=== PATIENT | male | born 1980 | race Caucasian/White ===

== ENCOUNTER 2020-11-23 07:45 | Outpatient (REF) | payer BC, SELFPAY ==
[2020-11-23 08:46] LABS: Alanine Aminotransferase 23 U/L (0-40); Alkaline Phosphatase 42 U/L (39-117); Anion Gap 12 (12-20); Aspartate Amino Transferase 17 U/L (5-37); Bilirubin Total 1.7 mg/dL (0.0-1.0); Blood Urea Nitrogen 17 mg/dL (9-16); Carbon Dioxide 28 mmol/L (22-29); Chloride 104 mmol/L (96-108); Cholesterol 192 mg/dL; Estimated Glomerular Filt Rate > 60; Glucose Fasting 125 mg/dL (60-99); HDL Cholesterol 53 mg/dL; LDL Cholesterol Calculated 126 mg/dl; Potassium 4.9 mmol/L (3.3-5.1); Sodium 139 mmol/L (135-145); Total Protein 6.8 g/dL (6.5-8.0); Triglycerides 66 mg/dL
[2020-11-23 09:07] LABS: TSH reflex Free T4 2.64 uIU/mL (0.32-4.0)
== END 2020-11-23 07:46 | disposition home or self-care (01) ==
LOC: HO.LAB 07:45
PROVIDERS: PCP Nurse Practitioner Family; Visit Provider Nurse Practitioner Family
DX: Z00.00 Encounter for general adult medical examination without abnormal findings (principal)
CPT/HCPCS: 36415; 80053; 80061; 84443

== ENCOUNTER 2020-12-27 11:45 | Emergency (ER) | payer BC, SELFPAY ==
--- NOTE | ~2020-12-27 | XR_ITS ---
EXAMINATION: XR CHEST CLINICAL INFORMATION: Palpitations COMPARISON: Chest radiographs 10/24/2019, 07/15/2016 TECHNIQUE: Frontal view of the chest was obtained. FINDINGS: The lungs are clear. The vascularity is normal. The heart is normal in size. There is no airspace consolidation or effusion. The hilar and mediastinal contours are unremarkable. Cardiac loop recorder monitoring device again seen overlying the left chest. No acute bony abnormality. XR/XR chest 1V IMPRESSION: Unremarkable examination.
--- NOTE | 2020-12-27 11:52 | ECG_ITS ---
Test Reason : AFIB Blood Pressure : / mmHG Vent. Rate : 072 BPM Atrial Rate : 340 BPM P-R Int : 000 ms QRS Dur : 110 ms QT Int : 402 ms P-R-T Axes : 000 -23 150 degrees QTc Int : 440 ms Atrial fibrillation Voltage criteria for left ventricular hypertrophy Cannot rule out Septal infarct (cited on or before 01-JAN-2015) ST & Marked T wave abnormality, consider lateral ischemia Abnormal ECG When compared with ECG of 01-JAN-2015 13:00, Atrial fibrillation has replaced Sinus rhythm Questionable change in initial forces of Septal leads T wave inversion more evident in Lateral leads Referred By: Generic ED Physician Electronically Signed By:JANA CHARLES MD
[2020-12-27 12:23] VITALS: BP 141/76; PULSE 77; RESP 18; TEMP 37.1; O2SAT 97; BMI 30.7
[2020-12-27 12:56] LABS: Basophils Percent Auto 0.5 % (0-2); Eosinophils Absolute Auto 0.1 X10*3/uL (0.0-0.4); Eosinophils Percent Auto 1.6 % (0-4); Hemoglobin 15.3 g/dl (14.0-18.0); Imm Gran Abs Auto 0.03 X10*3/uL (0.00-0.03); Imm Gran Pct Auto 0.4 % (0.0-0.4); Lymphocytes Absolute Auto 1.4 X10*3/uL (1.2-4.9); Lymphocytes Percent Auto 18.5 % (20-40); MANUAL DIFF FLAG NO; Mean Corpuscular HGB Conc 33.3 g/dl (31.0-36.0); Mean Corpuscular Hemoglobin 28.1 pg (27.0-33.0); Mean Corpuscular Volume 84.4 fL (80-98); Mean Platelet Volume 9.6 fL (9.4-12.4); Monocytes Absolute Auto 0.6 X10*3/uL (0.1-1.2); Monocytes Percent Auto 7.8 % (2-11); Neutrophils Absolute Auto 5.3 X10*3/uL (2.0-8.3); Neutrophils Percent Auto 71.2 % (45-73); Platelet Count 256 X10*3/uL (160-400); Red Blood Count 5.45 X10*6/uL (4.60-5.80); Red Cell Distribution Width 12.4 % (11.0-16.0); White Blood Count 7.4 X10*3/uL (4.8-10.8)
--- NOTE | 2020-12-27 13:07 | ED_ITS ---
HPI - Arrhythmia/Palpitations General Chief Complaint: Arrhythmia/Palpitations Stated Complaint: AFIB Time Seen by Provider: 12/27/20 13:07 Source: patient and old records reviewed Mode of arrival: ambulatory Limitations: no limitations History of Present Illness HPI narrative: 40 yo male with hx of afib on metoprolol 75mg BID and xarelto as well as obstructive cardiomyopathy s/p ablation in 2017 started with palp itations yesterday at 330pm no new med changes, no caffeine, has not had symptoms since 2017, denies CP/SOB MD complaint: palpitations Onset (ago): day(s) (yesterday at 330pm) Duration: intermittent Severity: mild Context: occurred during rest and occurred during exertion Arrhythmia history: atrial fibrillation Associated symptoms: denies other symptoms Treatments prior to arrival: beta-monroe Related Data Home Medications Medication Instructions Recorded Confirmed metoprolol tartrate 50 mg tablet 75 mg PO BID 10/07/20 10/07/20 rivaroxaban 20 mg tablet 20 mg PO DAILY 10/07/20 10/07/20 Previous Rx's Medication Instructions Recorded dronedarone [Multaq] 400 mg PO BID #30 tab 12/27/20 Allergies Allergy/AdvReac Type Severity Reaction Status Date / Time midazolam [From VERSED] Allergy Unknown SNEEZING, Verified 12/27/20 12:23 GI upset penicillin V Allergy Unknown rash Verified 12/27/20 12:23 Review of Systems Review of Systems: Constitutional : No Fever, No Chills ENT/Mouth : No sore throat, No Rhinorrhea, No Swallowing Difficulty Eyes: No Eye Pain, No Swelling, No Redness Cardiovascular : No Chest Pain, no SOB, No Orthopnea, no Edema, pos palpitations Respiratory : No Cough, No Sputum, No Wheezing, no dyspnea Gastrointestinal : No Nausea, No Vomiting, No Diarrhea, No abdominal Pain, No Hematochezia, No Melena Genitourinary : No Dysuria, No Urinary Frequency, No Hematuria Musculoskeletal : No joint pain, No Myalgias Skin : No Skin Lesions, No rash Neuro : No Weakness, No Numbness, No Dizziness, No Headache Psych : No Anxiety/Panic, No Depression Heme/Lymph: No Bruising, No Lymphadenopathy Endocrine : No Polyuria, No Polydipsia All other systems reviewed and are negative PMFSH Past Medical History Attestation statement: The following information was validated with the patient. Medical History Hypertrophic obstructive cardiomyopathy Hypertrophic obstructive cardiomyopathy (HOCM) Paroxysmal A-fib Surgical History History of vasectomy Family History Family History Father Lyme disease Mother No problems noted. Maternal Grandmother CHF (congestive heart failure) CVD (cardiovascular disease) Diabetes mellitus Maternal Grandfather History of quadruple bypass Paternal Grandfather No problems noted. Paternal Grandmother Alzheimer's disease Pacemaker Brother No problems noted. Son No problems noted. Daughter No problems noted. Social History Social History Alcohol intake: never Smoking Status: Never smoker Advance Directives: Yes Advance Directives Information Provided: Yes Advance Directives on File: No Physical Exam Vital Signs: Vital Signs: Last Vital Signs Temp 98.2 F 12/27/20 14:00 Pulse 69 12/27/20 14:00 Resp 16 12/27/20 14:00 BP 105/72 12/27/20 14:00 Pulse Ox 99 12/27/20 14:00 Body Mass Index 30.7 Appearance: Alert. Oriented X3. No acute distress. Eyes: Pupils equal, round and reactive to light. ENT: Pharynx normal. Neck: Normal inspection. Neck supple. CVS: irregular heart rate and rhythm. Pulses normal. Respiratory: No respiratory distress. Breath sounds normal. Abdomen: Soft and nontender. Skin: Skin warm and dry. Normal skin color. Normal skin turgor. Extremities: No lower extremity edema. No calf ttp Neuro: Oriented X 3. No motor deficit. No sensory deficit. Course Course Course Narrative: able to obtain outside records for EKG - unchanged will cancel troponin - no CP/SOB discussed with Cardiology given asymptomatic wants to see outpatient can start on multaq 400mg BID patient called and updated with plan for new medications and to see Dr. Camacho on wednesday MDM - Arrhythmia/Palpitations MDM Narrative Medical decision making narrative: 40 yo male with hx of afib on metoprolol 75mg BID and xarelto as well as obstructive cardiomyopathy s/p ablation in 2017 sta rted with palpitations yesterday at 330pm no new med changes, no caffeine, has not had symptoms since 2017, denies CP/SOB - overall asymptomatic at this time will need labs, EKG, troponin, lytes Lab Data Result diagrams: 12/27/20 12:45 12/27/20 12:45 Labs: Lab Results 12/27/20 12/27/20 12/27/20 Range/Units 12:45 12:45 12:45 WBC 7.4 (4.8-10.8) X10*3/uL RBC 5.45 (4.60-5.80) X10*6/uL Hgb 15.3 (14.0-18.0) g/dl Hct 46.0 (42-52) % MCV 84.4 (80-98) fL MCH 28.1 (27.0-33.0) pg MCHC 33.3 (31.0-36.0) g/dl RDW 12.4 (11.0-16.0) % Plt Count 256 (160-400) X10*3/uL MPV 9.6 (9.4-12.4) fL Immature Gran % (Auto) 0.4 (0.0-0.4) % Neut % (Auto) 71.2 (45-73) % Lymph % (Auto) 18.5 L (20-40) % Jackson % (Auto) 7.8 (2-11) % Eos % (Auto) 1.6 (0-4) % Baso % (Auto) 0.5 (0-2) % Lymph # (Auto) 1.4 (1.2-4.9) X10*3/uL Jackson # (Auto) 0.6 (0.1-1.2) X10*3/uL Eos # (Auto) 0.1 (0.0-0.4) X10*3/uL Baso # (Auto) 0.0 (0.0-0.2) X10*3/uL Abs Immat Gran (auto) 0.03 (0.00-0.03) X10*3/uL Absolute Neuts (auto) 5.3 (2.0-8.3) X10*3/uL Absolute Nucleated RBC 0.000 (0.0-0.012) X10*3/uL Nucleated RBC % (auto) 0.0 (0.0-0.2) /100WBC Hold Blue Top SEE NOTE Sodium 138 (135-145) mmol/L Potassium 5.4 H (3.3-5.1) mmol/L Chloride 104 (96-108) mmol/L Carbon Dioxide 29 (22-29) mmol/L Anion Gap 10 L (12-20) BUN 12 (9-16) mg/dL Creatinine 1.14 (0.5-1.4) mg/dL Estim Creat Clear Calc 89.8 Estimated GFR > 60 Random Glucose 113 (60-115) mg/dL Calcium 9.7 D (8.4-10.2) mg/dL Magnesium 2.2 (1.6-2.6) mg/dL Troponin I High Sens (<3.5-35.0) ng/L TSH 2.73 (0.32-4.0) uIU/mL 12/27/20 Range/Units 12:45 WBC (4.8-10.8) X10*3/uL RBC (4.60-5.80) X10*6/uL Hgb (14.0-18.0) g/dl Hct (42-52) % MCV (80-98) fL MCH (27.0-33.0) pg MCHC (31.0-36.0) g/dl RDW (11.0-16.0) % Plt Count (160-400) X10*3/uL MPV (9.4-12.4) fL Immature Gran % (Auto) (0.0-0.4) % Neut % (Auto) (45-73) % Lymph % (Auto) (20-40) % Jackson % (Auto) (2-11) % Eos % (Auto) (0-4) % Baso % (Auto) (0-2) % Lymph # (Auto) (1.2-4.9) X10*3/uL Jackson # (Auto) (0.1-1.2) X10*3/uL Eos # (Auto) (0.0-0.4) X10*3/uL Baso # (Auto) (0.0-0.2) X10*3/uL Abs Immat Gran (auto) (0.00-0.03) X10*3/uL Absolute Neuts (auto) (2.0-8.3) X10*3/uL Absolute Nucleated RBC (0.0-0.012) X10*3/uL Nucleated RBC % (auto) (0.0-0.2) /100WBC Hold Blue Top Sodium (135-145) mmol/L Potassium (3.3-5.1) mmol/L Chloride (96-108) mmol/L Carbon Dioxide (22-29) mmol/L Anion Gap (12-20) BUN (9-16) mg/dL Creatinine (0.5-1.4) mg/dL Estim Creat Clear Calc Estimated GFR Random Glucose (60-115) mg/dL Calcium (8.4-10.2) mg/dL Magnesium (1.6-2.6) mg/dL Troponin I High Sens 8.4 (<3.5-35.0) ng/L TSH (0.32-4.0) uIU/mL ECG Data Attestation: I personally reviewed and interpreted this ECG as follows: ECG interpretation date: 12/27/20 ECG interpretation time: 13:20 Prior ECG tracings: available for review Interpretation: Rate: 70s Rhythm: afib [place]: left, LVH Normal P waves. Normal AGUSTINA. Normal QRS complex. ST T wave : inverted I and aVL as well as V6 (more pronounced from prior) qTC: normal prior studies: more pronounced T wave inversions The study has been interpreted contemporaneously by me. . Discharge Plan Discharge Clinical Impression: Atrial fibrillation Qualifiers: Atrial fibrillation type: paroxysmal Qualified Code(s): I48.0 - Paroxysmal atrial fibrillation Patient Disposition: Home, Self-Care Instructions: A-fib (Atrial Fibrillation) (ED) Additional Instructions: return to ED for any worsening symptoms or concerns continue all medications Prescriptions: New Multaq 400 mg tablet 400 mg PO BID Qty: 30 RF: 0 No Action metoprolol tartrate 50 mg tablet 75 mg PO BID RF: 0 Xarelto 20 mg tablet 20 mg PO DAILY RF: 0 Referrals: Emerson Camacho MD [Physician] - 1 week Stand Alone Forms: Work/School Release Interventions: ED Discharge Assessment Last Done: 12/27/20 14:53 Discharge Date/Time: 12/27/20 14:54
[2020-12-27 13:23] LABS: Anion Gap 10 (12-20); Blood Urea Nitrogen 12 mg/dL (9-16); Calcium 9.7 mg/dL (8.4-10.2); Carbon Dioxide 29 mmol/L (22-29); Chloride 104 mmol/L (96-108); Creatinine Clr Calc Pharmacy 89.8; Estimated Glomerular Filt Rate > 60; Glucose Random 113 mg/dL (60-115); Potassium 5.4 mmol/L (3.3-5.1); Sodium 138 mmol/L (135-145)
[2020-12-27 13:30] LABS: Troponin-I High Sensitivity 8.4 ng/L (<3.5-35.0)
[2020-12-27 13:56] LABS: Magnesium 2.2 mg/dL (1.6-2.6)
[2020-12-27 14:00] VITALS: BP 105/72; PULSE 69; RESP 16; TEMP 36.8; O2SAT 99
[2020-12-27 14:17] LABS: Thyroid Stimulating Hormone 2.73 uIU/mL (0.32-4.0)
== END 2020-12-27 14:54 | disposition home or self-care (01) ==
PROVIDERS: Emergency Provider Emergency Medicine; PCP Nurse Practitioner Family
DX: I48.0 Paroxysmal atrial fibrillation (principal); Z79.01 Long term (current) use of anticoagulants
CPT/HCPCS: 36415; 71045; 80048; 83735; 84443; 84484; 85025; 93005; 99283; 99284

== ENCOUNTER 2021-01-20 21:30 | Emergency (ER) | payer BC, SELFPAY ==
--- NOTE | ~2021-01-20 | XR_ITS ---
EXAMINATION: XR CHEST CLINICAL INFORMATION: Elevated potassium. COMPARISON: None TECHNIQUE: Frontal view of the chest was obtained. FINDINGS: No significant abnormality is noted involving the heart, lungs, mediastinum, bony thorax or soft tissues. Acardiac recorder is seen in the left upper chest XR/XR chest 1V IMPRESSION: Unremarkable chest exam.
[2021-01-20 21:35] VITALS: BP 139/89; PULSE 80; RESP 16; TEMP 36.9; O2SAT 97; BMI 30.7
--- NOTE | 2021-01-20 21:48 | ECG_ITS ---
Test Reason : ABNORMAL LABS Blood Pressure : / mmHG Vent. Rate : 082 BPM Atrial Rate : 091 BPM P-R Int : 000 ms QRS Dur : 104 ms QT Int : 390 ms P-R-T Axes : 000 -21 142 degrees QTc Int : 455 ms Atrial fibrillation Voltage criteria for left ventricular hypertrophy ST & T wave abnormality, consider lateral ischemia Abnormal ECG When compared with ECG of 27-DEC-2020 11:57, No significant change was found Referred By: Kanchan Beasley Electronically Signed By:SOLA GONZALEZ
[2021-01-20 22:06] LABS: MANUAL DIFF FLAG NO
[2021-01-20 22:08] LABS: Basophils Absolute Auto 0.1 X10*3/uL (0.0-0.2); Eosinophils Absolute Auto 0.3 X10*3/uL (0.0-0.4); Eosinophils Percent Auto 3.4 % (0-4); Hematocrit 43.6 % (42-52); Hemoglobin 14.7 g/dl (14.0-18.0); Imm Gran Abs Auto 0.03 X10*3/uL (0.00-0.03); Imm Gran Pct Auto 0.3 % (0.0-0.4); Lymphocytes Absolute Auto 2.6 X10*3/uL (1.2-4.9); Lymphocytes Percent Auto 29.4 % (20-40); Mean Corpuscular HGB Conc 33.7 g/dl (31.0-36.0); Mean Corpuscular Hemoglobin 28.3 pg (27.0-33.0); Mean Platelet Volume 8.9 fL (9.4-12.4); Monocytes Absolute Auto 0.8 X10*3/uL (0.1-1.2); Monocytes Percent Auto 9.5 % (2-11); Neutrophils Percent Auto 56.4 % (45-73); Platelet Count 263 X10*3/uL (160-400); Red Blood Count 5.19 X10*6/uL (4.60-5.80); Red Cell Distribution Width 12.1 % (11.0-16.0); White Blood Count 8.8 X10*3/uL (4.8-10.8)
[2021-01-20 22:35] LABS: Troponin-I High Sensitivity 18.5 ng/L (<3.5-35.0)
[2021-01-20 22:40] LABS: Anion Gap 13 (12-20); Blood Urea Nitrogen 20 mg/dL (9-16); Calcium 9.3 mg/dL (8.4-10.2); Carbon Dioxide 26 mmol/L (22-29); Chloride 103 mmol/L (96-108); Creatinine Clr Calc Pharmacy 79.9; Estimated Glomerular Filt Rate > 60; Glucose Random 139 mg/dL (60-115); Potassium 4.8 mmol/L (3.3-5.1); Sodium 137 mmol/L (135-145)
--- NOTE | 2021-01-20 23:56 | ED_ITS ---
HPI - Arrhythmia/Palpitations General Chief Complaint: Arrhythmia/Palpitations Stated Complaint: abnoirmal labs Time Seen by Provider: 01/20/21 23:55 Source: patient Mode of arrival: ambulatory Limitations: no limitations History of Present Illness HPI narrative: Patient's history of atrial fibrillation on Xarelto and Multaq usually gets atrial fibrillation in last 1 only for few days with this times going on for last 3 weeks already seen chief of field operations today chief of field operations called him because lab called him for potassium of 5.8 on arrival patient had the labs done and for potassium was 4.8 here ,patient is not feeling much palpitations was working all day today without any shortness of breath or chest pain on ar rival patient's heart rate was in 80s AFib patient denies any dizziness syncope or chest pain complaint: irregular heart beat Related Data Home Medications Medication Instructions Recorded Confirmed metoprolol tartrate 50 mg tablet 75 mg PO BID 10/07/20 10/07/20 rivaroxaban 20 mg tablet 20 mg PO DAILY 10/07/20 10/07/20 Previous Rx's Medication Instructions Recorded dronedarone [Multaq] 400 mg PO BID #30 tab 12/27/20 Allergies Allergy/AdvReac Type Severity Reaction Status Date / Time midazolam [From VERSED] Allergy Unknown SNEEZING, Verified 12/27/20 12:23 GI upset penicillin V Allergy Unknown rash Verified 12/27/20 12:23 Review of Systems Review of Systems: Constitutional : No Weight loss, No Fever, No Chills ENT/Mouth : No sore throat, No Rhinorrhea Eyes: No Eye Pain, No Swelling Cardiovascular : No Chest Pain, + palpitations Respiratory : No Cough, No Sputum, no shortness of breath Gastrointestinal : no Nausea, No Vomiting, No Diarrhea, No abdominal Pain, no black stools Genitourinary : No Dysuria, No Urinary Frequency Musculoskeletal : No joint pain, No Myalgias, No Joint Swelling Skin : No Skin Lesions, No rash Neuro : No Weakness, No Numbness, No Dizziness, No Headache Psych : No Anxiety/Panic, No Depression Heme/Lymph: No Bruising, No Lymphadenopathy Endocrine : No Polyuria, No Polydipsia All other systems reviewed and are negative [facility] Past Medical History Medical History Hypertrophic obstructive cardiomyopathy Hypertrophic obstructive cardiomyopathy (HOCM) Paroxysmal A-fib Surgical History History of vasectomy Family History Family History Father Lyme disease Mother No problems noted. Maternal Grandmother CHF (congestive heart failure) CVD (cardiovascular disease) Diabetes mellitus Maternal Grandfather History of quadruple bypass Paternal Grandfather No problems noted. Paternal Grandmother Alzheimer's disease Pacemaker Brother No problems noted. Son No problems noted. Daughter No problems noted. Social History Social History Alcohol intake: never Smoking Status: Never smoker Advance Directives: No Advance Directives Information Provided: No Physical Exam Vital Signs: Vital Signs: Last Vital Signs Temp 98.4 F 01/20/21 21:35 Pulse 80 01/20/21 21:35 Resp 16 01/20/21 21:35 BP 139/89 01/20/21 21:35 Pulse Ox 97 01/20/21 21:35 Body Mass Index 30.7 Appearance: Alert. Oriented X3. No acute distress. Eyes: PERRLA, No Nystagmus ENT: Pharynx normal. Oral Mucosa moist Neck: Normal inspection. Neck supple. CVS: Irregularly irregular heart rate no murmur or gallop. Pulses normal. Respiratory: No respiratory distress. Equal air entry bilateral, no wheezing/rales/rhonchi Abdomen: Soft and nontender. Bowel sounds are present, no mass palpable, no CVA tenderness Skin: Skin warm and dry. Normal skin color. Normal skin turgor. Extremities: No lower extremity edema. No calf tenderness Neuro: Oriented X 3. No motor deficit. No sensory deficit.No cerebellar signs , cranial nerves II-XII intact MDM - Arrhythmia/Palpitations MDM Narrative Medical decision making narrative: Patient with stable labs potassium level is normal heart rate is in 80s with AFib already on medications for AFib has a follow-up plan with chief of field operations will discharge patient home Lab Data Attestation: I reviewed the patient's lab results. Result diagrams: 01/20/21 22:01 01/20/21 22:02 Labs: Lab Results 01/20/21 01/20/21 01/20/21 Range/Units 22:01 22:01 22:01 WBC 8.8 (4.8-10.8) X10*3/uL RBC 5.19 (4.60-5.80) X10*6/uL Hgb 14.7 (14.0-18.0) g/dl Hct 43.6 (42-52) % MCV 84.0 (80-98) fL MCH 28.3 (27.0-33.0) pg MCHC 33.7 (31.0-36.0) g/dl RDW 12.1 (11.0-16.0) % Plt Count 263 (160-400) X10*3/uL MPV 8.9 L (9.4-12.4) fL Immature Gran % (Auto) 0.3 (0.0-0.4) % Neut % (Auto) 56.4 (45-73) % Lymph % (Auto) 29.4 (20-40) % [place] % (Auto) 9.5 (2-11) % Eos % (Auto) 3.4 (0-4) % Baso % (Auto) 1.0 (0-2) % Lymph # (Auto) 2.6 (1.2-4.9) X10*3/uL [place] # (Auto) 0.8 (0.1-1.2) X10*3/uL Eos # (Auto) 0.3 (0.0-0.4) X10*3/uL Baso # (Auto) 0.1 (0.0-0.2) X10*3/uL Abs Immat Gran (auto) 0.03 (0.00-0.03) X10*3/uL Absolute Neuts (auto) 5.0 (2.0-8.3) X10*3/uL Absolute Nucleated RBC 0.000 (0.0-0.012) X10*3/uL Nucleated RBC % (auto) 0.0 (0.0-0.2) /100WBC Hold Blue Top SEE NOTE Sodium (135-145) mmol/L Potassium (3.3-5.1) mmol/L Chloride (96-108) mmol/L Carbon Dioxide (22-29) mmol/L Anion Gap (12-20) BUN (9-16) mg/dL Creatinine (0.5-1.4) mg/dL Estim Creat Clear Calc Estimated GFR Random Glucose (60-115) mg/dL Calcium (8.4-10.2) mg/dL Troponin I High Sens 18.5 (<3.5-35.0) ng/L // Range/Units 22:02 WBC (4.8-10.8) X10*3/uL RBC (4.60-5.80) X10*6/uL Hgb (14.0-18.0) g/dl Hct (42-52) % MCV (80-98) fL MCH (27.0-33.0) pg MCHC (31.0-36.0) g/dl RDW (11.0-16.0) % Plt Count (160-400) X10*3/uL MPV (9.4-12.4) fL Immature Gran % (Auto) (0.0-0.4) % Neut % (Auto) (45-73) % Lymph % (Auto) (20-40) % [place] % (Auto) (2-11) % Eos % (Auto) (0-4) % Baso % (Auto) (0-2) % Lymph # (Auto) (1.2-4.9) X10*3/uL [place] # (Auto) (0.1-1.2) X10*3/uL Eos # (Auto) (0.0-0.4) X10*3/uL Baso # (Auto) (0.0-0.2) X10*3/uL Abs Immat Gran (auto) (0.00-0.03) X10*3/uL Absolute Neuts (auto) (2.0-8.3) X10*3/uL Absolute Nucleated RBC (0.0-0.012) X10*3/uL Nucleated RBC % (auto) (0.0-0.2) /100WBC Hold Blue Top Sodium 137 (135-145) mmol/L Potassium 4.8 (3.3-5.1) mmol/L Chloride 103 (96-108) mmol/L Carbon Dioxide 26 (22-29) mmol/L Anion Gap 13 (12-20) BUN 20 H D (9-16) mg/dL Creatinine 1.28 (0.5-1.4) mg/dL Estim Creat Clear Calc 79.9 Estimated GFR > 60 Random Glucose 139 H (60-115) mg/dL Calcium 9.3 (8.4-10.2) mg/dL Troponin I High Sens (<3.5-35.0) ng/L ECG Data Attestation: I personally reviewed and interpreted this ECG as follows: Interpretation: Atrial fibrillation heart rate 82 beats per minute LVH nonspecific ST T wave changes no acute ischemia Discharge Plan Discharge Clinical Impression: Atrial fibrillation Qualifiers: Atrial fibrillation type: paroxysmal Qualified Code(s): I48.0 - Paroxysmal atrial fibrillation Patient Disposition: Home, Self-Care Instructions: A-fib (Atrial Fibrillation) (ED) Additional Instructions: Continue medications and follow with your chief of field operations Report to the ER if palpitation/syncope/chest pain/shortness of breath Prescriptions: No Action Multaq 400 mg tablet 400 mg PO BID Qty: 30 RF: 0 metoprolol tartrate 50 mg tablet 75 mg PO BID RF: 0 Xarelto 20 mg tablet 20 mg PO DAILY RF: 0 Interventions: ED Discharge Assessment Last Done: 01/21/21 00:29 Discharge Date/Time: 01/21/21 00:29
== END 2021-01-21 00:29 | disposition home or self-care (01) ==
PROVIDERS: Emergency Medicine; Emergency Provider Internal Medicine; PCP Nurse Practitioner Family
DX: I48.0 Paroxysmal atrial fibrillation (principal); Z79.01 Long term (current) use of anticoagulants
CPT/HCPCS: 36415; 71045; 80048; 84484; 85025; 93005; 99283; 99284

== ENCOUNTER 2021-04-05 09:16 | Outpatient (REF) | payer BC, SELFPAY ==
[2021-04-05 10:21] LABS: Estimated Average Glucose 126 mg/dL
[2021-04-05 10:23] LABS: Bilirubin Direct 0.5 mg/dL (0.0-0.5); Bilirubin Total 1.8 mg/dL (0.0-1.0)
== END 2021-04-05 09:17 | disposition home or self-care (01) ==
LOC: HO.LAB 09:16
PROVIDERS: PCP Nurse Practitioner Family; Visit Provider Nurse Practitioner Family
DX: R17 Unspecified jaundice (principal); R73.01 Impaired fasting glucose
CPT/HCPCS: 36415; 82247; 82248; 83036

== ENCOUNTER 2021-06-13 12:52 | Outpatient (REF) | payer BC, SELFPAY ==
[2021-06-13 15:10] LABS: Alanine Aminotransferase 21 U/L (0-40); Albumin Level 4.3 g/dL (3.5-5.0); Alkaline Phosphatase 46 U/L (39-117); Aspartate Amino Transferase 23 U/L (5-37); Bilirubin Direct 0.5 mg/dL (0.0-0.5); Gamma Glutamyl Transpeptidase 20 U/L (11-51); Lipase 12 U/L (8-78); Total Protein 7.2 g/dL (6.5-8.0)
[2021-06-13 15:13] LABS: Estimated Average Glucose 123 mg/dL; Hemoglobin A1c % 5.9 %
[2021-06-16 04:27] LABS: HBc Num1 0.08 S/CO (0.00-0.79); Hepatitis B Core Antibody Nonreactive (Nonreactive); ~Hepatitis C Antibody Nonreactive (Nonreactive)
[2021-06-16 04:37] LABS: HBS Num1 2.96 mIU/mL (0-7.99); HBsAGNum1 0.71 S/CO (0.00-0.99); Hepatitis B Surface Antigen Negative (Negative); ~Hepatitis B Surface Antibody NONREACTIVE (Nonreactive)
[2021-06-18 07:58] LABS: Hepatitis A Antibody IgM 0.16 Index (0-0.79); ~Hepatitis A Antibody IgM Nonreactive (Nonreactive)
== END 2021-06-13 12:53 | disposition home or self-care (01) ==
LOC: HO.LAB 12:52
PROVIDERS: PCP Nurse Practitioner Family; Referring Provider Nurse Practitioner Family; Visit Provider Nurse Practitioner Family
DX: R17 Unspecified jaundice (principal)
CPT/HCPCS: 36415; 80076; 82977; 83036; 83690; 86704; 86706; 86709; 86803; 87340

== ENCOUNTER 2021-07-08 08:44 | Outpatient (REF) | payer BC, SELFPAY ==
--- NOTE | ~2021-07-08 | US_ITS ---
EXAMINATION: US ABDOMEN COMPLETE CLINICAL INFORMATION: Nonspecific jaundice. COMPARISON: None TECHNIQUE: Real-time imaging of the abdominal viscera. Technically difficult study secondary to body habitus. FINDINGS: PANCREAS: Normal. ABDOMINAL AORTA: The proximal abdominal aorta is not well visualized due to bowel gas. The mid and distal abdominal aorta are normal in caliber. INFERIOR VENA CAVA: Visualized portions are normal. LIVER: Not well visualized due to body habitus. Liver echotexture is increased and slightly heterogeneous. The liver is normal in size and contour. No biliary duct dilatation. GALLBLADDER: The gallbladder is normal in size. There are gallstones in the gallbladder. The gallbladder wall does not appear thickened. COMMON BILE DUCT: Not well visualized. The visualized common bile duct is normal in caliber measuring 0.21 cm in diameter. RIGHT KIDNEY: Normal. No hydronephrosis. No renal calculi or focal parenchymal lesions. The kidney measures 11.0 cm in maximum dimension. LEFT KIDNEY: Normal. No hydronephrosis. No renal calculi or focal parenchymal lesions. The kidney measures 11.7 cm in maximum dimension. SPLEEN: Normal. The spleen measures 12.1 cm in maximum dimension. FREE FLUID: None. US/US abdomen complete IMPRESSION: Limited exam due to patient body habitus. In particular, evaluation of the liver and common bile duct is limited. Slightly increased heterogeneous liver echotexture. Gallstones. No biliary duct dilatation.
== END 2021-07-08 08:45 | disposition home or self-care (01) ==
LOC: HO.US 08:44
PROVIDERS: Visit Provider Nurse Practitioner Family
DX: R17 Unspecified jaundice (principal)
CPT/HCPCS: 76700

== ENCOUNTER → 2021-08-06 08:38 | Outpatient (BNVA) | payer BC, SELFPAY | PROVIDERS: PCP Nurse Practitioner Family; Referring Provider Nurse Practitioner Family; Visit Provider Nurse Practitioner Family ==

== ENCOUNTER 2021-10-08 10:21 | Outpatient (REF) | payer BC, SELFPAY ==
[2021-10-08 11:36] LABS: Appearance Urine CLEAR; Color Urine YELLOW; Glucose Urine UA NEG (NEG); Leukocyte Esterase Urine NEG (NEG); Nitrite Urine NEG (NEG); Specific Gravity - Urine 1.015 (1.005-1.025); UACC Culture Trigger NO; Urine Blood 1+ (NEG); Urine Ketones NEG (NEG); Urine Protein NEG (NEG-TRACE)
[2021-10-08 11:50] LABS: WBC Urine 0 /HPF (0-4)
[2021-10-08 14:11] LABS: Alanine Aminotransferase 20 U/L (0-40); Albumin Level 4.3 g/dL (3.5-5.0); Alkaline Phosphatase 46 U/L (39-117); Anion Gap 9 (12-20); Aspartate Amino Transferase 20 U/L (5-37); Bilirubin Total 1.4 mg/dL (0.0-1.0); Carbon Dioxide 31 mmol/L (22-29); Chloride 105 mmol/L (96-108); Cholesterol 215 mg/dL; Estimated Glomerular Filt Rate > 60; Glucose Fasting 124 mg/dL (60-99); HDL Cholesterol 55 mg/dL; LDL Cholesterol Calculated 143 mg/dl; Potassium 4.9 mmol/L (3.3-5.1); Sodium 140 mmol/L (135-145); Total Protein 7.2 g/dL (6.5-8.0); Triglycerides 85 mg/dL
[2021-10-08 15:14] LABS: Blood Urea Nitrogen 11 mg/dL (9-16); Calcium 9.8 mg/dL (8.4-10.2)
== END 2021-10-08 10:22 | disposition home or self-care (01) ==
LOC: HO.HMGCLDS 10:21
PROVIDERS: PCP Nurse Practitioner Family; Visit Provider Nurse Practitioner Family
DX: Z00.00 Encounter for general adult medical examination without abnormal findings (principal)
CPT/HCPCS: 36415; 80053; 80061; 81001; 84443

== ENCOUNTER 2022-04-28 09:15 | Outpatient (REF) | payer BC, SELFPAY ==
[2022-04-28 11:20] LABS: Appearance Urine Clear; Color Urine Yellow; Glucose Urine UA Negative (Negative); Leukocyte Esterase Urine Negative (Negative); Nitrite Urine Negative (Negative); Specific Gravity - Urine 1.015 (1.005-1.025); Urine Blood Negative (Negative); Urine Ketones Negative (Negative); Urine Protein Negative (Neg-Trace)
[2022-04-28 11:28] LABS: MANUAL DIFF FLAG NO
[2022-04-28 11:38] LABS: Basophils Absolute Auto 0.1 X10*3/uL (0.0-0.2); Basophils Percent Auto 0.9 % (0-2); Eosinophils Absolute Auto 0.2 X10*3/uL (0.0-0.4); Eosinophils Percent Auto 3.3 % (0-4); Hematocrit 42.7 % (42.0-52.0); Hemoglobin 14.7 g/dl (14.0-18.0); Imm Gran Abs Auto 0.04 X10*3/uL (0.00-0.03); Imm Gran Pct Auto 0.6 % (0.0-0.4); Lymphocytes Absolute Auto 1.6 X10*3/uL (1.2-4.9); Lymphocytes Percent Auto 22.4 % (20-40); Mean Corpuscular HGB Conc 34.4 g/dl (31.0-36.0); Mean Corpuscular Hemoglobin 29.3 pg (27.0-33.0); Mean Corpuscular Volume 85.2 fL (80.0-98.0); Mean Platelet Volume 10.1 fL (9.4-12.4); Monocytes Absolute Auto 0.7 X10*3/uL (0.1-1.2); Monocytes Percent Auto 10.5 % (2-11); Neutrophils Absolute Auto 4.4 x10*3/uL (2.0-8.3); Neutrophils Percent Auto 62.3 % (45-73); Platelet Count 234 X10*3/uL (160-400); Red Blood Count 5.01 X10*6/uL (4.60-5.80); Red Cell Distribution Width 12.2 % (11.0-16.0)
[2022-04-28 12:26] LABS: Alanine Aminotransferase 31 U/L (0-40); Alkaline Phosphatase 44 U/L (39-117); Anion Gap 13 (12-20); Aspartate Amino Transferase 22 U/L (5-37); Bilirubin Total 1.6 mg/dL (0.0-1.0); Blood Urea Nitrogen 12 mg/dL (9-16); Carbon Dioxide 25 mmol/L (22-29); Chloride 106 mmol/L (96-108); Cholesterol 186 mg/dL; Estimated Glomerular Filt Rate > 60; Glucose Fasting 115 mg/dL (60-99); HDL Cholesterol 54 mg/dL; LDL Cholesterol Calculated 119 mg/dl; Potassium 4.8 mmol/L (3.3-5.1); Sodium 139 mmol/L (135-145); Total Protein 6.7 g/dL (6.5-8.0); Triglycerides 68 mg/dL
== END 2022-04-28 09:16 | disposition home or self-care (01) ==
LOC: HO.HMGCLDS 09:15
PROVIDERS: PCP Nurse Practitioner Family; Visit Provider Nurse Practitioner Family
DX: R73.01 Impaired fasting glucose (principal)
CPT/HCPCS: 36415; 80053; 80061; 81003; 84443; 85025

== ENCOUNTER 2022-09-30 12:33 | Outpatient (REF) | payer BC, SELFPAY ==
[2022-09-30 12:50] LABS: MANUAL DIFF FLAG NO
[2022-09-30 13:12] LABS: Basophils Absolute Auto 0.1 X10*3/uL (0.0-0.2); Eosinophils Absolute Auto 0.1 X10*3/uL (0.0-0.4); Eosinophils Percent Auto 1.5 % (0-4); Hematocrit 50.4 % (42.0-52.0); Hemoglobin 17.2 g/dl (14.0-18.0); Imm Gran Abs Auto 0.03 X10*3/uL (0.00-0.03); Imm Gran Pct Auto 0.4 % (0.0-0.4); Lymphocytes Absolute Auto 2.2 X10*3/uL (1.2-4.9); Lymphocytes Percent Auto 27.1 % (20-40); Mean Corpuscular HGB Conc 34.1 g/dl (31.0-36.0); Mean Corpuscular Hemoglobin 29.3 pg (27.0-33.0); Mean Corpuscular Volume 85.7 fL (80.0-98.0); Mean Platelet Volume 9.7 fL (9.4-12.4); Monocytes Absolute Auto 0.8 X10*3/uL (0.1-1.2); Monocytes Percent Auto 10.2 % (2-11); Neutrophils Absolute Auto 4.9 x10*3/uL (2.0-8.3); Neutrophils Percent Auto 59.8 % (45-73); Platelet Count 257 X10*3/uL (160-400); Red Blood Count 5.88 X10*6/uL (4.60-5.80); Red Cell Distribution Width 11.8 % (11.0-16.0); White Blood Count 8.2 X10*3/uL (4.8-10.8)
[2022-09-30 13:17] LABS: INTERNATIONAL NORM RATIO 1.3 (0.9-1.1); Prothrombin Time 15.2 SEC (10.0-13.1)
[2022-09-30 13:36] LABS: Anion Gap 13 (12-20); Blood Urea Nitrogen 19 mg/dL (9-16); Calcium 9.9 mg/dL (8.4-10.2); Carbon Dioxide 29 mmol/L (22-29); Chloride 103 mmol/L (96-108); Estimated Glomerular Filt Rate > 60; Glucose Random 123 mg/dL (60-115); Sodium 140 mmol/L (135-145)
== END 2022-09-30 12:34 | disposition home or self-care (01) ==
LOC: HO.LAB 12:33
PROVIDERS: PCP Nurse Practitioner Family; Visit Provider Nurse Practitioner Family
DX: Z01.818 Encounter for other preprocedural examination (principal); I48.0 Paroxysmal atrial fibrillation; I42.1 Obstructive hypertrophic cardiomyopathy
CPT/HCPCS: 36415; 80048; 85025; 85610

== ENCOUNTER 2023-01-19 10:18 | Outpatient (REF) | payer BC, SELFPAY ==
[2023-01-19 11:18] LABS: MANUAL DIFF FLAG NO
[2023-01-19 11:42] LABS: Basophils Absolute Auto 0.1 X10*3/uL (0.0-0.2); Eosinophils Absolute Auto 0.2 X10*3/uL (0.0-0.4); Eosinophils Percent Auto 3.1 % (0-4); Hematocrit 48.7 % (42.0-52.0); Hemoglobin 16.4 g/dl (14.0-18.0); Imm Gran Abs Auto 0.02 X10*3/uL (0.00-0.03); Imm Gran Pct Auto 0.3 % (0.0-0.4); Lymphocytes Absolute Auto 1.6 X10*3/uL (1.2-4.9); Lymphocytes Percent Auto 26.4 % (20-40); Mean Corpuscular HGB Conc 33.7 g/dl (31.0-36.0); Mean Corpuscular Hemoglobin 28.5 pg (27.0-33.0); Mean Corpuscular Volume 84.5 fL (80.0-98.0); Mean Platelet Volume 9.1 fL (9.4-12.4); Monocytes Absolute Auto 0.7 X10*3/uL (0.1-1.2); Monocytes Percent Auto 11.4 % (2-11); Neutrophils Absolute Auto 3.6 x10*3/uL (2.0-8.3); Neutrophils Percent Auto 57.8 % (45-73); Platelet Count 246 X10*3/uL (160-400); Red Blood Count 5.76 X10*6/uL (4.60-5.80); White Blood Count 6.2 X10*3/uL (4.8-10.8)
[2023-01-19 12:16] LABS: Appearance Urine Clear; Color Urine Yellow; Glucose Urine UA Negative (Negative); Leukocyte Esterase Urine Negative (Negative); Nitrite Urine Negative (Negative); PH 5.5 (5.0-9.0); UMIC TRIGGER UACC YES; Urine Blood Trace (Negative); Urine Ketones Negative (Negative); Urine Protein Negative (Neg-Trace)
[2023-01-19 12:16] LABS: Alanine Aminotransferase 25 U/L (0-40); Albumin Level 4.3 g/dL (3.5-5.0); Alkaline Phosphatase 46 U/L (39-117); Anion Gap 12 (12-20); Aspartate Amino Transferase 20 U/L (5-37); Bilirubin Total 1.7 mg/dL (0.0-1.0); Blood Urea Nitrogen 13 mg/dL (9-16); Calcium 9.7 mg/dL (8.4-10.2); Carbon Dioxide 28 mmol/L (22-29); Chloride 104 mmol/L (96-108); Cholesterol 180 mg/dL; Estimated Glomerular Filt Rate > 60; Glucose Fasting 118 mg/dL (60-99); HDL Cholesterol 54 mg/dL; LDL Cholesterol Calculated 109 mg/dl; Potassium 5.4 mmol/L (3.3-5.1); Sodium 139 mmol/L (135-145); Total Protein 7.1 g/dL (6.5-8.0); Triglycerides 87 mg/dL
[2023-01-19 12:21] LABS: Bacteria Urine None Seen (None Seen); Hyaline Casts Urine 0-2 /LPF (0-2); RBC Urine 0-2 /HPF (0-2); Squamous Epithelial Cell Urine 0-2 /HPF (0-2); WBC Urine 0-5 /HPF (0-5)
[2023-01-19 12:34] LABS: TSH reflex Free T4 2.12 uIU/mL (0.32-4.0)
== END 2023-01-19 10:19 | disposition home or self-care (01) ==
LOC: HO.LAB 10:18
PROVIDERS: Absent Provider Nurse Practitioner Family; PCP Nurse Practitioner Family; Visit Provider Nurse Practitioner Family
DX: Z01.818 Encounter for other preprocedural examination (principal); E78.5 Hyperlipidemia, unspecified
CPT/HCPCS: 36415; 80053; 80061; 81001; 81003; 84443; 85025

== ENCOUNTER 2023-02-06 07:53 | Outpatient (REF) | payer BC, SELFPAY ==
[2023-02-06 08:46] LABS: Anion Gap 13 (12-20); Carbon Dioxide 28 mmol/L (22-29); Chloride 104 mmol/L (96-108); Potassium 5.4 mmol/L (3.3-5.1); Sodium 140 mmol/L (135-145)
[2023-02-06 08:57] LABS: Appearance Urine Clear; Color Urine Yellow; Glucose Urine UA Negative (Negative); Leukocyte Esterase Urine Negative (Negative); Nitrite Urine Negative (Negative); PH 5.5 (5.0-9.0); UMIC TRIGGER UACC YES; Urine Blood Trace (Negative); Urine Ketones Negative (Negative); Urine Protein Negative (Neg-Trace)
[2023-02-06 09:01] LABS: Bacteria Urine None Seen (None Seen); Hyaline Casts Urine 0-2 /LPF (0-2); RBC Urine 0-2 /HPF (0-2); Squamous Epithelial Cell Urine 0-2 /HPF (0-2); WBC Urine 0-5 /HPF (0-5)
== END 2023-02-06 07:54 | disposition home or self-care (01) ==
LOC: HO.LAB 07:53
PROVIDERS: PCP Nurse Practitioner Family; Visit Provider Nurse Practitioner Family
DX: E87.5 Hyperkalemia (principal)
CPT/HCPCS: 36415; 80051; 81001

== ENCOUNTER 2023-02-12 07:51 | Outpatient (REF) | payer BC, SELFPAY ==
[2023-02-12 08:56] LABS: Anion Gap 12 (12-20); Carbon Dioxide 29 mmol/L (22-29); Chloride 104 mmol/L (96-108); Potassium 4.6 mmol/L (3.3-5.1); Sodium 140 mmol/L (135-145)
[2023-02-12 09:15] LABS: Urine Cytology See Pathology rpt
[2023-02-12 09:26] LABS: Appearance Urine Clear; Color Urine Yellow; Glucose Urine UA Negative (Negative); Leukocyte Esterase Urine Negative (Negative); Nitrite Urine Negative (Negative); PH 5.5 (5.0-9.0); Urine Blood Negative (Negative); Urine Ketones Negative (Negative); Urine Protein Negative (Neg-Trace)
[2023-02-12 09:32] LABS: Bacteria Urine None Seen (None Seen); Hyaline Casts Urine 0-2 /LPF (0-2); RBC Urine 0-2 /HPF (0-2); Squamous Epithelial Cell Urine 0-2 /HPF (0-2); WBC Urine 0-5 /HPF (0-5)
== END 2023-02-12 07:52 | disposition home or self-care (01) ==
LOC: HO.LAB 07:51
PROVIDERS: PCP Nurse Practitioner Family; Visit Provider Nurse Practitioner Family
DX: E87.5 Hyperkalemia (principal); R31.29 Other microscopic hematuria; E78.5 Hyperlipidemia, unspecified
CPT/HCPCS: 36415; 80051; 81001; 81003; 87086; 88112

== ENCOUNTER 2023-02-23 09:30 | Outpatient (REF) | payer BC, SELFPAY ==
--- NOTE | ~2023-02-23 | US_ITS ---
EXAMINATION: US RETROPERITONEAL COMPLETE (RENAL) CLINICAL INFORMATION: Other microscopic hematuria. COMPARISON: Ultrasound abdomen complete 07/08/2021. TECHNIQUE: Real-time imaging of the kidneys and bladder. FINDINGS: RIGHT KIDNEY: 11.5 x 5.0 x 5.5 cm (SAG x AP x TRV). The kidney is normal in size, contour, and echogenicity. Renal cortical thickness is normal. No calculi or focal parenchymal lesions. No hydronephrosis. LEFT KIDNEY: 11.4 x 5.7 x 5.2 cm (SAG x AP x TRV). The kidney is normal in size, contour, and echogenicity. Renal cortical thickness is normal. No calculi or focal parenchymal lesions. No hydronephrosis. BLADDER: Well distended and normal. Bilateral ureteral jets are demonstrated. Prevoid bladder volume is 320 mL. Postvoid bladder volume is 29.5 mL. The prostate volume is 28.4 mL. US/US retroperitoneal comp IMPRESSION: Unremarkable renal ultrasound..
== END 2023-02-23 09:31 | disposition home or self-care (01) ==
LOC: HO.US 09:30
PROVIDERS: PCP Nurse Practitioner Family; Visit Provider Nurse Practitioner Family
DX: R31.29 Other microscopic hematuria (principal)
CPT/HCPCS: 76770

== ENCOUNTER 2023-03-17 08:16 | Outpatient (AMB) | payer BC, SELFPAY ==
--- NOTE | 2023-03-17 08:08 | A.OFFVIS_ITS ---
Intake Intake Visit Reasons: Microscopic hematuria Intake Note: NEW Patient presents today to established treatment for Microscopic Hematuria: Meds- None Allergies to Antibiotic- Penicillin Blood Thinner- Rivaroxaban PVR- 0ml Corrosion Control Technician Required: No Accompanied by: Self / Same As Patient Allergies midazolam [From VERSED] Allergy (Unknown, Verified 03/17/23 08:19) SNEEZING, GI upset penicillin V Allergy (Unknown, Verified 03/17/23 08:19) rash HPI HPI Comments History of Present Illness Details Fletcher is a 42-year-old male who presents to the clinic today as a new patient for evaluation of microscopic hematuria. 03/17/23-- The patient is referred to me by his primary care physician. The patient had a renal ultrasound on 02/23/23. He denies any hematuria. He denies any nicotine usage. Past medical history significant for hypertrophic cardiomyopathy and heart murmur. He is on metoprolol and Camzyos.? He denies any urinary issues. Discussed reasons for blood in the urine may include but are not limited to kidney stones, cancer in the urinary tract, BPH, kidney stone disease or inflammatory conditions of the urinary tract. I have discussed workup to include cystoscopy evaluation. Results reviewed-- Renal ultrasound 02/23/23 -- kidneys WNL. Estimated prostate volume 28.4 mL. Bladder unremarkable. Prevoid bladder volume 320 mL. Postvoid bladder volume 29.5 mL. Evaluation today-- UA ? leukocytes: negative. Blood: 10 Wander/uL.Bladder scan PVR 0 mL. Plan: Renal ultrasound results were reviewed with the patient in detail. Senting today's urine for cytology. Cystoscopy discussed to be scheduled. [facility] Medical History Asymmetric septal hypertrophy Atrial dilatation, left Gilbert's syndrome Hypertrophic obstructive cardiomyopathy Hypertrophic obstructive cardiomyopathy (HOCM) Paroxysmal A-fib Surgical History History of surgery History of vasectomy Hx of hand surgery Family History Father Lyme disease Mother No problems noted. Maternal Grandmother CHF (congestive heart failure) CVD (cardiovascular disease) Diabetes mellitus Maternal Grandfather History of quadruple bypass Paternal Grandfather No problems noted. Paternal Grandmother Alzheimer's disease Pacemaker Brother No problems noted. Son No problems noted. Daughter No problems noted. Social History Housing: House Alcohol intake: never Patient Tobacco Use Status: Never used Tobacco e-Cigarette/Vaping Use: Never Used Second Hand Smoke Exposure: No Current occupational status: employed Cognitive needs: No Hearing needs: No Vision needs: No Review of Systems Const All systems reviewed & are unremarkable except as noted in HPI and below Reports no additional complaints Eyes Reports no additional complaints ENT Reports no additional complaints Card Denies dyspnea Resp Denies cough and Denies dyspnea GI Reports no additional complaints Musc Reports no additional complaints Skin/Breast Denies rash and Denies unusual bruising Neuro Reports no additional complaints Psych Reports no additional complaints Endo Reports no additional complaints Costa/Lymph Reports no additional complaints Aller/Immun Reports no additional complaints Physical Exam Const General: healthy appearing, no acute distress and well developed Orientation/consciousness: patient oriented x3 HEENT Head: Yes normocephalic and Yes atraumatic Eyes Conjunctivae: conjunctivae normal Neck Neck: Yes normal visual inspection Chest Chest palpation & inspection: normal inspection of the chest Resp Effort & Inspection: normal respiratory effort Cardio Rate: regular rate GI Inspection: Yes normal to inspection Skin General skin exam: no rashes or lesions noted Neuro General: patient oriented x3 Extrem General: No pedal edema Psych Appearance: grossly normal Affect: normal affect Office Procedures Post Void Residual Post Residual Void Post Void Residual (PVR): 0 [id number] Void Residual by ultrasound Results AMB Urinalysis, Automated UA Leukoctes 0 Conor/uL Last Edit by DENA Vidales on 03/17/23 08:42 UA Nitrite Negative Last Edit by DENA Vidales on 03/17/23 08:42 UA Urobilinogen 0.2 mg/dL Last Edit by Catina Ontiveros A on 03/17/23 08:4 2 UA Protein 15 mg/dL Last Edit by Catina Ontiveros A on 03/17/23 08:42 UA pH 6.0 Last Edit by Catina Ontiveros, A on 03/17/23 08:42 UA Blood 10 Wander/uL Last Edit by Catina Ontiveros A on 03/17/23 08:42 UA Specific [place] 1.020 Last Edit by Catina Ontiveros A on 03/17/23 08: 42 UA Ketone Negative Last Edit by Catina Ontiveros A on 03/17/23 08:42 UA Bilirubin 0 mg/dL Last Edit by Catina Ontiveros A on 03/17/23 08:42 UA Glucose 0 mg/dL Last Edit by Catina Ontiveros A on 03/17/23 08:42 Results Reviewed Results Reviewed: Laboratory Last Values Urine pH (Auto) 6.0 03/17/23 08:19 Specific [place] (Auto) 1.020 03/17/23 08:19 Urine Protein (Auto) 15 mg/dL 03/17/23 08:19 Glucose (UA)(Auto) 0 mg/dL 03/17/23 08:19 Urine Ketones (Auto) Negative 03/17/23 08:19 Urine Blood (Auto) 10 Wander/uL 03/17/23 08:19 Urine Nitrite (Auto) Negative 03/17/23 08:19 Urine Bilirubin (Auto) 0 mg/dL 03/17/23 08:19 Urine Urobilinogen (Auto) 0.2 mg/dL 03/17/23 08:19 Leukocyte Esterase (Auto) 0 Conor/uL 03/17/23 08:19 Date - 02/23/23 FINDINGS: RIGHT KIDNEY: 11.5 x 5.0 x 5.5 cm (SAG x AP x TRV). The kidney is normal in size, contour, and echogenicity. Renal cortical thickness is normal. No calculi or focal parenchymal lesions. No hydronephrosis. LEFT KIDNEY: 11.4 x 5.7 x 5.2 cm (SAG x AP x TRV). The kidney is normal in size, contour, and echogenicity. Renal cortical thickness is normal. No calculi or focal parenchymal lesions. No hydronephrosis. BLADDER: Well distended and normal. Bilateral ureteral jets are demonstrated. Prevoid bladder volume is 320 mL. Postvoid bladder volume is 29.5 mL. The prostate volume is 28.4 mL. IMPRESSION: Unremarkable renal ultrasound. Assessment & Plan Assessment & Plan (1) Microscopic hematuria: Code(s): R31.29 - Other microscopic hematuria Plan Renal ultrasound results were reviewed with the patient in detail. Cystoscopy discussed to be scheduled. Orders: Orders Urine Cytology Today R31.29 - Other microscopic hematuria AMB Urinalysis Automated Today Z13.9 - Encounter for screening, unspecified AMB Post Void Residual by ultrasound Today N39.8 - Other specified disorders of urinary system Patient Instructions: The patient had an opportunity to ask questions regarding treatment plan. All questions were answered. Imaging, Laboratory studies and physical exam results were discussed and reviewed in detail. No major barriers to understanding were identified. The patient expressed understanding and agreement with the above treatment plan. The patient is aware they should contact our office by phone for worsening of their current condition or the appearance of new symptoms. Compliance is encouraged with any medications and followup testing that is ordered. It is a privilege to be allowed the opportunity to participate in the urologic care of your patient. If you have any questions or concerns regarding treatment for the above conditions please do not hesitate to contact me. The office telephone contact is [phone]. This note is constructed in part using voice recognition software. While every effort has been made to ensure accuracy catering associate errors may have been included. Yours sincerely, Jesse Sood MD Coding Level of Care Code New Pt Level 3 (96970) Diagnoses Microscopic hematuria R31.29 CPT Codes Post Residual Void - PVR CPT Code: 89947-Jola Void Residual by ultrasound ([id number])
== END 2023-03-17 09:12 | disposition home or self-care (01) ==
PROVIDERS: PCP Nurse Practitioner Family; Visit Provider Urology
DX: R31.29 Other microscopic hematuria (principal)
CPT/HCPCS: 99203

== ENCOUNTER 2023-03-17 08:16 | Outpatient (REF) | payer BC, SELFPAY ==
[2023-03-17 16:47] LABS: Urine Cytology See Pathology rpt
== END 2023-03-17 08:17 | disposition home or self-care (01) ==
LOC: HO.LAB 08:16
PROVIDERS: PCP Nurse Practitioner Family; Visit Provider Urology
DX: R31.29 Other microscopic hematuria (principal); N39.8 Other specified disorders of urinary system
CPT/HCPCS: 51798; 88112

== ENCOUNTER 2023-04-28 09:14 | Outpatient (AMB) | payer BC, SELFPAY ==
--- NOTE | 2023-04-28 04:48 | A.OFFVIS_ITS ---
Intake Intake Visit Reasons: 1m/cysto/microscopic hematuria Intake Note: Patient presents today for a CYSTOSCOPY Procedure: Meds: None Allergies to Antibiotic: Penicillin Blood Thinner: None Urinalysis test cleared for Cysto Disposable Uro-G Cystoscope Cannula: Lot: [id number] Exp: 01/06/2025 Chief Dog License Inspector Required: No Accompanied by: Self / Same As Patient Allergies midazolam [From VERSED] Allergy (Unknown, Verified 05/19/23 11:19) SNEEZING, GI upset penicillin V Allergy (Unknown, Verified 05/19/23 11:19) rash HPI HPI Comments History of Present Illness Details Fletcher is a 43-year-old male who presents today to the office for a 1 month follow-up. 04/28/2023? Fletcher is followed today for a cystoscopy procedure. He was last seen by me on 03/17/2023 for microscopic hematuria. Urine for cytol ogy was ordered, and Cystoscopy was discussed to be scheduled at that time. I reviewed the repeat urine cytology results from 03/18/2023 which came back negative for malignancy cells. I reviewed the urine cytology results from 02/12/2023 revealed a few atypical urothelial cells. 04/28/2023?Evaluation today?UA? Leukocyt es: negative; blood: negative. Cystoscopy procedure: 2% lidocaine x 2 dose pre-procedure toda y. Cystoscopy findings: Bladder was within normal limits; no suspicious bladder lesions; prostate was noted some bilobar enlargement, non obstructive. Patient states that he had started bicycle riding just before being advised by his primary care provider, and then he has noticed microscopic blood in the urine. Patient states that he had stopped bicycle riding, while he was waiting for this work-up to be completed. Discussed with the patient that the bicycle riding may cause blood in the urine, and may contributed to irritation in the prostate causing blood in the urine. Al l other evaluations include urine cytology, office Cystoscopy was within normal limits. Mild bleeding noted at the prostate area from the instrumentation. Review of charts: Last visit: 03/17/23-- The patient is referred to me by his primary care physician. The patient had a renal ultrasound on 02/23/23. He denies any hematuria. He denies any nicotine usage. Past medical history significant for hypertrophic cardiomyopathy and heart murmur. He is on metoprolol and Camzyos.? He denies any urinary issues. Discussed reasons for blood in the urine may include but are not limited to kidney stones, cancer in the urinary tract, BPH, kidney stone disease or inflammatory conditions of the urinary tract.? I have discussed workup to include cystoscopy evaluation. Results reviewed-- Renal ultrasound 02/23/23 -- kidneys WNL. Estimated prostate volume 28.4 mL. Bladder unremarkable. Prevoid bladder volume 320 mL. Postvoid bladder volume 29.5 mL. Evaluation today-- UA ? leukocytes: negative. Blood: 10 Wander/uL.Bladder scan PVR 0 mL. ?? 04/28/2023?Plan: Will continue to monitor.. Follow-up in one year. [facility] Medical History Gilbert's syndrome Asymmetric septal hypertrophy Atrial dilatation, left Hypertrophic obstructive cardiomyopathy (HOCM) Paroxysmal A-fib Hypertrophic obstructive cardiomyopathy Surgical History History of surgery Hx of hand surgery History of vasectomy Family History Father Lyme disease Mother No problems noted. Maternal Grandmother CHF (congestive heart failure) CVD (cardiovascular disease) Diabetes mellitus Maternal Grandfather History of quadruple bypass Paternal Grandfather No problems noted. Paternal Grandmother Alzheimer's disease Pacemaker Brother No problems noted. Son No problems noted. Daughter No problems noted. Social History Housing: House Alcohol intake: never Patient Tobacco Use Status: Never used Tobacco e-Cigarette/Vaping Use: Never Used Second Hand Smoke Exposure: No Current occupational status: employed Cognitive needs: No Hearing needs: No Vision needs: No Review of Systems Const All systems reviewed & are unremarkable except as noted in HPI and below Reports no additional complaints Eyes Reports no additional complaints ENT Reports no additional complaints Card Denies dyspnea Resp Denies cough and Denies dyspnea GI Reports no additional complaints Musc Reports no additional complaints Skin/Breast Denies rash and Denies unusual bruising Neuro Reports no additional complaints Psych Reports no additional complaints Endo Reports no additional complaints Costa/Lymph Reports no additional complaints Aller/Immun Reports no additional complaints Office Procedures Cystoscopy Consent Discussed risk and benefit or proposed procedure with the patient. Information consent for procedure given to the patient. Discussed technical aspects, risks, benefits and alternatives in full. Addressed all of the patient's questions and concerns regarding the procedure. The patient demonstrated knowledge and understanding. They wish to proceed with this procedure. Preparation The patient was prepped in the usual manner. A personal banking officer was present and in the room. Genitalia was prepped with betadine solution in a sterile manner. Lidocaine Jelly 2% was placed into the urethra and 16Fr flexible Olympus cystoscope was inserted into the meatus after adequate lubrication. Procedure Time out per protocol performed. Bladder Inspection Bladder Inspection: The bladder was inspected in its entirety with utilization retroflexion displaying: Tumor(s): none visualized Trabeculation: N/A Mucosal Erthema: N/A Orifices: normal shape and position Urethra: normal Cystoscopy findings: prostatic urethra non obstructive, bulbous urethra WNL, no suspicious bladder lesions visualized [id number] DISPOSABLE SCOPE URO-G FLEXIBLE SCOPE Procedure code (CPT) selection complete Office Meds lidocaine HCl 2 % mucosal jelly in applicator Performing Provider: Jesse Sood MD Performing [place] [facility] Administered by: Zuly Lawson RN on 04/28/23 09:46 Dose Route Admin Location Dispensed Lot Number Expiration Date [facility] Bottom Bleacher 10 mL intra-urethral 20 mL naproxen 500 mg tablet Performing Provider: Jesse Sood MD Performing Location[place] [facility] Administered by: Zuly Lawson RN on 04/28/23 09:46 Dose Route Admin Location Dispensed Lot Number Expiration Date [facility] Bottom Bleacher 500 mg PO 1 tab ciprofloxacin HCl 500 mg tablet Performing Provider: Jesse Sood MD Performing Location: [facility] Administered by: Zuly Lawson RN on 04/28/23 09:46 Dose Route Admin Location Dispensed Lot Number Expiration Date [facility] Bottom Bleacher 500 mg PO 1 tab Results AMB Urinalysis, Automated UA Leukoctes 0 Conor/uL Last Edit by DENA Vidales on 04/28/23 09:38 UA Nitrite Negative Last Edit by Catina Ontiveros Lety on 04/28/23 09:38 UA Urobilinogen 0.2 mg/dL Last Edit by Catina Ontiveros Lety on 04/28/23 09:3 8 UA Protein 0 mg/dL Last Edit by Catina Ontiveros Lety on 04/28/23 09:38 UA pH 6.0 Last Edit by Catina Ontiveros Lety on 04/28/23 09:38 UA Blood 0 Wander/uL Last Edit by Catina Ontiveros Lety on 04/28/23 09:38 UA Specific [place] 1.015 Last Edit by DENA Vidales on 04/28/23 09: 38 UA Ketone Negative Last Edit by Catina Ontiveros Lety on 04/28/23 09:38 UA Bilirubin 0 mg/dL Last Edit by Catina Ontiveros Lety on 04/28/23 09:38 UA Glucose 0 mg/dL Last Edit by Catina Ontiveros Lety on 04/28/23 09:38 Results Reviewed Results Reviewed: Laboratory Last Values Urine pH (Auto) 6.0 04/28/23 09:25 Specific [place] (Auto) 1.015 04/28/23 09:25 Urine Protein (Auto) 0 mg/dL 04/28/23 09:25 Glucose (UA)(Auto) 0 mg/dL 04/28/23 09:25 Urine Ketones (Auto) Negative 04/28/23 09:25 Urine Blood (Auto) 0 Wander/uL 04/28/23 09:25 Urine Nitrite (Auto) Negative 04/28/23 09:25 Urine Bilirubin (Auto) 0 mg/dL 04/28/23 09:25 Urine Urobilinogen (Auto) 0.2 mg/dL 04/28/23 09:25 Leukocyte Esterase (Auto) 0 Conor/uL 04/28/23 09:25 Diagnosis Urine:? Negative for high-grade urothelial carcinoma. COMMENT: Examination of a monolayer preparation slide shows benign urothelial cells, benign squamous cells, degenerated cellular debris, occasional inflammatory cells, and red blood cells. Clinical History Microscopic hematuria Material Received Urine Gross Description 15 cc cloudy yellow fluid Date of service: 02/12/2023: Urine cytology. Diagnosis Urine:??Few atypical urothelial cells. COMMENT:? Examination of a monolayer preparation slide shows scattered benign squamous cells and urothelial cells with few hyperchromatic irregular urothelial cells with increased nuclear:cytoplasmic ratios.? Occasional inflammatory cells and red blood cells are also present. Clinical History Microscopic hematuria Material Received Urine Gross Description 20 cc clear yellow fluid Assessment & Plan Assessment & Plan (1) Microscopic hematuria: Code(s): R31.29 - Other microscopic hematuria Plan Will continue to monitor.. Follow-up in one year. Orders: Orders AMB Cystoscopy 04/28/23 R31.29 - Other microscopic hematuria AMB Urinalysis Automated 04/28/23 Z13.9 - Encounter for screening, unspecified Patient Instructions: ? The patient had an opportunity to ask questions regarding treatment plan. All questions were answered. Imaging, Laboratory studies and physical exam results were discussed and reviewed in detail. No major barriers to understanding were identified. The patient expressed understanding and agreement with the above treatment plan.? ? ? The patient is aware they should contact our office by phone for worsening of their current condition or the appearance of new symptoms. Compliance is encouraged with any medications and followup testing that is ordered.? ? ? It is a privilege to be allowed the opportunity to participate in the urologic care of your patient. If you have any questions or concerns regarding treatment for the above conditions please do not hesitate to contact me. The office telephone contact is [phone].? ? ? This note is constructed in part using voice recognition software. While every effort has been made to ensure accuracy application support manager errors may have been included.? ? ? Yours sincerely,? ? ? Jesse Sood MD? Coding Level of Care Code Procedure Only Diagnoses Microscopic hematuria R31.29 CPT Codes Cystoscopy - CPT: 88492-[id number] ([id number]) Cystoscopy - CPT: DISPOSABLE SCOPE URO-G FLEXIBLE SCOPE ([id number])
== END 2023-04-28 10:36 | disposition home or self-care (01) ==
PROVIDERS: PCP Nurse Practitioner Family; Visit Provider Urology
DX: R31.29 Other microscopic hematuria (principal); Z13.9 Encounter for screening, unspecified
CPT/HCPCS: 52000

== ENCOUNTER → 2023-04-28 09:14 | Outpatient (BNVA) | payer BC, SELFPAY | PROVIDERS: PCP Nurse Practitioner Family; Visit Provider Urology | DX: R31.29 Other microscopic hematuria (principal) | CPT/HCPCS: 52000; 81003; C1747 ==

== ENCOUNTER 2023-05-19 10:32 | Outpatient (AMB) | payer BC, SELFPAY ==
[2023-05-19 11:18] VITALS: BP 120/78; PULSE 60; O2SAT 96; BMI 30.7
--- NOTE | 2023-05-19 11:18 | MHC.PC.OV ---
Vital Signs 05/19/23 11:18 Height 5 ft 7 in Weight 196 lb 4 oz BMI 30.7 BP 120/78 Blood Pressure Location Lt brachial Position Sitting Pulse 60 Pulse Source Pulse Oximeter Pulse Oximetry (%) 96 Oxygen Delivery Method Room Air Intake Visit Reasons: Annual PE Allergies midazolam [From VERSED] Allergy (Unknown, Verified 05/19/23 11:19) SNEEZING, GI upset penicillin V Allergy (Unknown, Verified 05/19/23 11:19) rash Medication List - Last Reconciled 05/19/23 by CANDELARIO Almanzar-JERI bisacodyl (Dulcolax (bisacodyl)) 10 mg (2 x 5 mg) PO ONCE 1 day famotidine (Heartburn Relief (famotidine)) 20 mg PO DAILY PRN lorazepam 1 mg PO DAILY PRN 10 days mavacamten (Camzyos) 10 mg PO DAILY metoprolol tartrate 75 mg PO BID polyethylene glycol 3350 (Miralax) 238 grams PO ONCE rivaroxaban 20 mg PO DAILY Tobacco use date assessed: 05/19/23 Dental Screening Dental Screen Date: 05/19/23 Did you have a dental visit in the last 12 months?: Yes Did you have a dental problem in the last 6 months where you did not have access to dental care?: No Was dental information given to patient?: Patient has dentist HPI Annual PE HPI Details Pt is here for a PE. Will order labs. Pt is seeing GI for his colon screen. Pt follows up with cardiology. [facility] Medical History Gilbert's syndrome Asymmetric septal hypertrophy Atrial dilatation, left Hypertrophic obstructive cardiomyopathy (HOCM) Paroxysmal A-fib Hypertrophic obstructive cardiomyopathy Surgical History History of surgery Hx of hand surgery History of vasectomy Family History Father Lyme disease Mother No problems noted. Maternal Grandmother CHF (congestive heart failure) CVD (cardiovascular disease) Diabetes mellitus Maternal Grandfather History of quadruple bypass Paternal Grandfather No problems noted. Paternal Grandmother Alzheimer's disease Pacemaker Brother No problems noted. Son No problems noted. Daughter No problems noted. Social History Housing: House Alcohol intake: never Patient Tobacco Use Status: Never used Tobacco e-Cigarette/Vaping Use: Never Used Second Hand Smoke Exposure: No Current occupational status: employed Cognitive needs: No Hearing needs: No Vision needs: No Questionnaire Thrive Questionnaire Date Thrive assessed: 11/02/22 ZARIA-7 AMB Questionnaire ZARIA-7 Date ZARIA - 7 assessed: 11/02/22 Source: Developed by Drs. Anupam Morin, Maria Ines Dunlap, Ryan Durham and colleagues, with an educational doreen from [employer]. Review of Systems Const Denies chills and Denies fever(s) Eyes Denies blurry vision ENT Denies vertigo, Denies dizziness and Denies sore throat Card Denies chest pain at rest, Denies chest pain with activity, Denies diaphoresis, Denies dyspnea and Denies dyspnea on exertion Resp Denies cough, Denies dyspnea, Denies dyspnea on exertion and Denies wheezing GI Denies abdominal pain, Denies melena, Denies hematochezia, Denies constipation, Denies diarrhea and Denies loose stools Denies hematuria Musc Denies numbness and Denies tingling Skin/Breast Denies lesions Neuro Denies vertigo, Denies dizziness, Denies numbness and Denies tingling Psych Denies anxiety, Denies depression, Denies homicidal ideation, Denies suicidal ideation and Denies other (substance abuse) Aller/Immun Denies wheezing Physical exam (Primary Care) Vital Signs: Last Vital Signs Pulse 60 05/19/23 11:18 BP 120/78 05/19/23 11:18 Pulse Ox 96 05/19/23 11:18 Oxygen Delivery Method Room Air 05/19/23 11:18 BMI result Body Mass Index 30.7 Tobacco/Smoking Status: Tobacco use Status Tobacco use date assessed 05/19/23 05/19/23 11:22 Patient Tobacco Use Status Never used Tobacco 05/19/23 11:22 e-Cigarette/Vaping Use Never Used 05/19/23 11:22 Thrive Assessment: Date of Thrive Assessment Date Thrive assessed 11/02/22 05/19/23 11:22 Const General: cooperative Nutritional Appearance: well nourished Orientation/consciousness: patient oriented x3 HENMT Head: Yes normal to inspection, Yes normocephalic and Yes atraumatic Ears: TM's normal bilaterally Eyes General: appearance normal, both eyes and all related structures Alignment and Position: alignment normal and position normal Neck Neck: Yes normal visual inspection and Yes no lymphadenopathy Thyroid: Thyroid normal Resp Effort & Inspection: normal respiratory effort Auscultation: clear to auscultation bilaterally Cardio Rate: regular rate Rhythm: regular rhythm Heart sounds: S1 normal heart sound present, S2 normal heart sound present and no murmurs GI Palpation (GI): Soft to palpation and nontender Auscultation: normal bowel sounds Male General Exam: Yes normal external exam Penis: normal penis Scrotum: scrotum normal, testes descended bilaterally and no inguinal hernias Testes: no testicular mass Skin Rashes: no rashes Neuro General: patient oriented x3, moves all extremities, no focal motor deficits and deep tendon reflexes 2+ bilaterally Romberg Test: Negative Psych Appearance: grossly normal Mental Status: mental status grossly normal Speech and movement: Normal speech and movement present Affect: normal affect Attitude: cooperative Thought process: Normal thought process present Thought content: Normal thought content present Insight: Good insight present (Psych) Judgement: Good judgement present (Psych) Assessment and Plan Assessment & Plan (1) Physical exam: Code(s): Z. - Encounter for general adult medical examination without abnormal findings Plan The patient agreed to the use of a medical service representative for this encounter. Scribed for FARZANEH Maguire by Nupur Abdi medical service representative, on 05/19/2023 at 11:25 EST. Orders: Orders Complete Blood Count Auto Diff Today Z00.00 - Encounter for general adult medical examination without abnormal findings Lipid Panel Today Z00.00 - Encounter for general adult medical examination without abnormal findings Comprehensive [place]. Panel Fast Today Z00.00 - Encounter for general adult medical examination without abnormal findings TSH reflex Free T4 Today Z00.00 - Encounter for general adult medical examination without abnormal findings UA CC w/rflx Micro + Cult Today Z00.00 - Encounter for general adult medical examination without abnormal findings Coding Level of Care Code Est Pt Prev Care 40-64y(71232) Diagnoses Physical exam Z00.00
== END 2023-05-19 11:39 | disposition home or self-care (01) ==
PROVIDERS: Visit Provider Nurse Practitioner Family
DX: Z00.00 Encounter for general adult medical examination without abnormal findings (principal)
CPT/HCPCS: 99396

== ENCOUNTER 2023-05-19 11:40 | Outpatient (REF) | payer BC, SELFPAY ==
[2023-05-19 13:09] LABS: MANUAL DIFF FLAG NO
[2023-05-19 13:31] LABS: Appearance Urine Clear; Color Urine Yellow; Glucose Urine UA Negative (Negative); Leukocyte Esterase Urine Negative (Negative); Nitrite Urine Negative (Negative); PH 6.5 (5.0-9.0); Urine Blood Negative (Negative); Urine Ketones Negative (Negative); Urine Protein Negative (Neg-Trace)
[2023-05-19 13:33] LABS: Basophils Absolute Auto 0.1 X10*3/uL (0.0-0.2); Eosinophils Absolute Auto 0.1 X10*3/uL (0.0-0.4); Eosinophils Percent Auto 2.1 % (0-4); Hematocrit 47.7 % (42.0-52.0); Hemoglobin 16.1 g/dl (14.0-18.0); Imm Gran Abs Auto 0.03 X10*3/uL (0.00-0.03); Imm Gran Pct Auto 0.5 % (0.0-0.4); Lymphocytes Absolute Auto 1.4 X10*3/uL (1.2-4.9); Lymphocytes Percent Auto 22.6 % (20-40); Mean Corpuscular HGB Conc 33.8 g/dl (31.0-36.0); Mean Corpuscular Volume 85.9 fL (80.0-98.0); Mean Platelet Volume 9.2 fL (9.4-12.4); Monocytes Absolute Auto 0.7 X10*3/uL (0.1-1.2); Monocytes Percent Auto 10.6 % (2-11); Neutrophils Percent Auto 63.2 % (45-73); Platelet Count 278 X10*3/uL (160-400); Red Blood Count 5.55 X10*6/uL (4.60-5.80); Red Cell Distribution Width 11.8 % (11.0-16.0); White Blood Count 6.2 X10*3/uL (4.8-10.8)
[2023-05-19 14:10] LABS: Alanine Aminotransferase 23 U/L (0-40); Albumin Level 4.4 g/dL (3.5-5.0); Alkaline Phosphatase 45 U/L (39-117); Anion Gap 15 (12-20); Aspartate Amino Transferase 17 U/L (5-37); Bilirubin Total 1.6 mg/dL (0.0-1.0); Blood Urea Nitrogen 17 mg/dL (9-16); Calcium 9.2 mg/dL (8.4-10.2); Carbon Dioxide 28 mmol/L (22-29); Chloride 102 mmol/L (96-108); Cholesterol 188 mg/dL (<200); Estimated Glomerular Filt Rate > 60; Glucose Fasting 107 mg/dL (60-99); HDL Cholesterol 57 mg/dL (>40); LDL Cholesterol Calculated 116 mg/dL (<100); Potassium 4.8 mmol/L (3.3-5.1); Sodium 140 mmol/L (135-145); Total Protein 7.6 g/dL (6.5-8.0); Triglycerides 79 mg/dL (<150)
[2023-05-19 14:14] LABS: TSH reflex Free T4 3.06 uIU/mL (0.32-4.0)
== END 2023-05-19 11:41 | disposition home or self-care (01) ==
LOC: HO.HMGCLDS 11:40
PROVIDERS: PCP Nurse Practitioner Family; Visit Provider Nurse Practitioner Family
DX: Z00.00 Encounter for general adult medical examination without abnormal findings (principal); E78.5 Hyperlipidemia, unspecified; I48.91 Unspecified atrial fibrillation
CPT/HCPCS: 36415; 80053; 80061; 81003; 84443; 85025

== ENCOUNTER 2024-02-21 07:50 | Day surgery (SDC) | payer BC, SELFPAY ==
[2024-02-21 08:00] VITALS: BP 136/88; PULSE 70; RESP 16; TEMP 36.6; O2SAT 98; BMI 30.9
--- NOTE | 2024-02-21 08:07 | P.CONAN_ITS ---
[facility] Active Problems Active Problems: All Active Problems Abnormal urine cytology (Acute) Hyperkalemia (Acute) Screen for colon cancer (Acute) Dyslipidemia (Acute) Microscopic hematuria (Acute) Gilbert's syndrome (Acute) Paroxysmal A-fib (Acute) Elevated bilirubin (Acute) Elevated fasting blood sugar (Acute) Physical exam (Acute) Past Medical History Medical History Gilbert's syndrome Asymmetric septal hypertrophy Atrial dilatation, left Hypertrophic obstructive cardiomyopathy (HOCM) Paroxysmal A-fib Hypertrophic obstructive cardiomyopathy Functional capacity: independent ambulation Family History Family History Father Lyme disease Mother No problems noted. Maternal Grandmother CHF (congestive heart failure) CVD (cardiovascular disease) Diabetes mellitus Maternal Grandfather History of quadruple bypass Paternal Grandfather No problems noted. Paternal Grandmother Alzheimer's disease Pacemaker Brother No problems noted. Son No problems noted. Daughter No problems noted. Surgical History Surgical History History of surgery Hx of hand surgery History of vasectomy History of Problems with Anesthesia: No Social History Social History Housing: House Alcohol intake: never Patient Tobacco Use Status: Never used Tobacco e-Cigarette/Vaping Use: Never Used Second Hand Smoke Exposure: No Use of substances other than those prescribed or required for medical reasons: No Are you DNR?: No Advance Directives: No Advance Directives Information Provided: Yes Current occupational status: employed Cognitive needs: No Hearing needs: No Vision needs: No Meds Allergies Allergy/AdvReac Type Severity Reaction Status Date / Time midazolam [From VERSED] Allergy Unknown SNEEZING, Verified 05/19/23 11:19 GI upset penicillin V Allergy Unknown rash Verified 05/19/23 11:19 Home Medications ?Medication ?Instructions ?Recorded ?Confirmed ?Last Taken ?Type rivaroxaban 20 mg tablet 20 mg PO DAILY 10/07/20 05/19/23 Unknown History famotidine 20 mg tablet (Heartburn 20 mg PO DAILY PRN 10/08/21 05/19/23 Unknown History Relief (famotidine)) mavacamten 5 mg capsule (Camzyos) 10 mg PO DAILY 03/17/23 05/19/23 02/21/24 History metoprolol tartrate 50 mg tablet 75 mg PO BID 03/17/23 05/19/23 02/21/24 History Exam Height,Weight and Vital Signs: Height 5 ft 7 in Weight 89.63 kg Last Vital Signs Temp 97.8 F 02/21/24 08:00 Pulse 70 02/21/24 08:00 Resp 16 02/21/24 08:00 BP 136/88 02/21/24 08:00 Pulse Ox 98 02/21/24 08:00 O2 Del Method Room Air 02/21/24 08:00 Airway Mallampati Class: II TM Dist: >3cm Neck ROM: Full Heart: RRR Lungs: CTA Assessment and Plan Assessment Anesthesia Assessment: Anesthesia Plan Discussed Final Anesthetic Review History of Problems with Anesthesia: No NPO: Yes ASA Class: III Final Preanesthetic Review: Meds/Allgs Chart Reviewed, Consent Obtained/Reviewed and Anes Risks/Benef Reviewed Patient Risk: Intermediate Procedure Risk: Low Anesthetic Plan Anesthetic Plan: MAC: Disposition: Standard PACU
--- NOTE | 2024-02-21 08:21 | MHC.SHP ---
Pre-Procedural Eval Section A - 24 Hr Update-Section A only Date of Service: 02/21/24 The patient is an INPATIENT: No The patient has been examined within 24 hours of the surgical procedure. The History & Physical has been completed within 30 days and I have reviewed it.: No Section B - Complete if H&P > 30 days Chief Complaint: Colon cancer screening Relevant Family History (Specify if Yes): No Relevant Social History: None Present Medications: see Short Stay Collaborative assessment Medical History: Significant History (Asymmetric septal hypertrophy Atrial dilatation, left Gilbert's syndrome Hypertrophic obstructive cardiomyopathy Hypertrophic obstructive cardiomyopathy (HOCM) Paroxysmal A-fib) History of Previous Operations: Relevant previous surgery/procedure and date(s) (History of vasectomy) Allergies: Allergies Allergy/AdvReac Type Severity Reaction Status Date / Time midazolam [From VERSED] Allergy Unknown SNEEZING, Verified 05/19/23 11:19 GI upset penicillin V Allergy Unknown rash Verified 05/19/23 11:19 Review of Systems Sugical H&P ROS: Negative: Constitution, Cardiovascular, Respiratory and Gastrointestinal Exam Surgical H&P Exam: Normal: Heart, Normal: Lungs, Normal: Extremities and Normal: Abdomen Plan Diagnosis/Plan: Unchanged I have reviewed the history and physical and performed a pertinent physical examination on my patient. No changes have occurred unless specified. Time Spent With Patient Time: Total time managing care of this patient today ____ minutes.
[2024-02-21] MEDS: Lactated Ringers 1,000 ML 100 ML IVCONT (08:23)
--- NOTE | 2024-02-21 09:23 | HO.OPN-COLON ---
Colonoscopy Operative Note Operative Note Date of Service: 02/21/24 Narrative: COLONOSCOPY TILL CECUM WITH BIOPSIES Pre-op diagnosis: Colon cancer screening (First colonoscopy). Post-op diagnosis:? Colon polyps, Diverticulosis, hemorrhoids Endoscopist:? Rody Grimes MD Anesthesia:?MAC Consent: Indications for the procedure and potential complications of bleeding, perforation, reaction to medications and missed diagnosis were discussed with the patient and informed consent was obtained. Instrument: Olympus CF H 190 L variable stiffness adult colonoscope Monitoring: Vital signs and clinical assessment, intermittent blood pressure monitoring, continuous EKG monitoring, Pulse oximetry and Carbon Dioxide monitoring were done throughout the procedure. Please see anesthesia flowsheet. Colon withdrawl time was 12 minutes. Procedure: The patient was placed in the left lateral decubitis position and pre-procedure medications were administered. After a digital rectal examination of the ano-rectum, the video colonoscope was inserted into the rectum and advanced through the colon to the cecum. The colonoscope was slowly withdrawn in a retrograde panoramic fashion and the colon mucosa was carefully examined including a retroflexed view of the rectum. Findings and interventions are described below. Procedure Difficulty: without difficulty Findings: Terminal Ileum: Not evaluated Cecum: A 2-3 mm sessile polyp - removed with a cold biopsy. Prominent ileocecal valve - biopsies obtained to rule out polyp Ascending Colon: Normal Transverse Colon: Normal Descending Colon: Normal Sigmoid Colon: Moderate diverticulosis Rectum: A few 4-5 mm diminutive appearing polyps - 1 was biopsied Ano-rectum: Moderate internal hemorrhoids Colon preparation: Excellent, [place] Bowel Preparation Scale Right colon; 3 Transverse colon: 3 Left colon; 3 (0 = Unprepared colon segment with mucosa not seen due to solid stool that cannot be cleared. 1 = Portion of mucosa of the colon segment seen, but other areas of the colon segment not well seen due to staining, residual stool and/or opaque liquid. 2 = Minor amount of residual staining, small fragments of stool and/or opaque liquid, but mucosa of colon segment seen well. 3 = Entire mucosa of colon segment seen well with no residual staining, small fragments of stool or opaque liquid) Impression and Post Procedure Diagnosis: Colonoscopy Findings: Two small polyps were removed Prominent ileocecal valve - biopsies obtained to rule out polyp Moderate diverticulosis seen in the sigmoid colon Small hemorrhoids on retroflexed exam. Plan: Pt has a FU appointment on 03/06/24 with Yamila Felipe NP Repeat Colonoscopy in 5 years if polyps are adenomatous and 10 year if polyps are hyperplastic. Above findings were reviewed with the patient and relevant handouts were given and the discharge area.
[2024-02-21 09:24] VITALS: BP 103/60; PULSE 76; RESP 13; TEMP 36.1; O2SAT 93
[2024-02-21 09:39] VITALS: BP 112/76; PULSE 70; RESP 16; TEMP 36.1; O2SAT 95
--- NOTE | 2024-02-21 09:51 | HO.POSTANES ---
Post Anesthesia Evaluation Post Anesthesia Evaluation Date of Service: 02/21/24 Vital Signs: Vital Signs Temp Pulse Resp BP Pulse Ox O2 Del Method 02/21/24 09:39 97 F 70 16 112/76 95 Room Air 02/21/24 09:24 97 F 76 13 103/60 93 Room Air 02/21/24 08:00 97.8 F 70 16 136/88 98 Room Air Anesthesia: Monitored Mental Status: Awake Pain Control: Satisfactory Nausea/Vomiting: None Hydration: Adequate Anesthesia-Related Issues: No Anes. Related Issues
== END 2024-02-21 10:06 | disposition home or self-care (01) ==
PROVIDERS: PCP Nurse Practitioner Family; Visit Provider Internal Medicine Gastroenterology
PROC: 0DJD8ZZ Inspection of Lower Intestinal Tract, Via Natural or Artificial Opening Endoscopic (ICD-10-PCS; CPT 45378; principal; 2024-02-21 09:20)
DX: Z12.11 Encounter for screening for malignant neoplasm of colon (principal); K63.5 Polyp of colon; K62.1 Rectal polyp; K57.30 Diverticulosis of large intestine without perforation or abscess without bleeding; K64.8 Other hemorrhoids; I42.1 Obstructive hypertrophic cardiomyopathy; I48.91 Unspecified atrial fibrillation; Z79.01 Long term (current) use of anticoagulants; Z88.0 Allergy status to penicillin; Z88.8 Allergy status to other drugs, medicaments and biological substances; Z79.899 Other long term (current) drug therapy
CPT/HCPCS: 45380; 88305; J2704

== ENCOUNTER → 2024-02-21 07:50 | Outpatient (BNV) | payer BC, SELFPAY | PROVIDERS: PCP Nurse Practitioner Family; Visit Provider Internal Medicine Gastroenterology | DX: Z12.11 Encounter for screening for malignant neoplasm of colon (principal); Z86.010 Personal history of colon polyps; K62.1 Rectal polyp; K57.30 Diverticulosis of large intestine without perforation or abscess without bleeding | CPT/HCPCS: 45380 ==

== ENCOUNTER 2024-03-20 09:50 | Outpatient (AMB) | payer BC, SELFPAY ==
--- NOTE | 2024-03-20 09:52 | A.OFFVIS_ITS ---
Vital Signs 03/20/24 09:57 Height 5 ft 7 in Weight 197 lb 1.492 oz BMI 30.9 BP 138/76 Blood Pressure Location Rt brachial Position Sitting Pulse 56 Pulse Source Pulse Oximeter Pulse Oximetry (%) 98 Oxygen Delivery Method Room Air Intake Visit Reasons: S/P Dr. Cornelio Goodman Intake Note: Fletcher presents in office today for a scheduled post op FUV. CC; Pt reports remaining stable since their s/p. Pt denies any new concerns or complications post op. Pt is here to discuss the findings of the s/p. Nurse Chemical Dependency Required: No Allergies midazolam [From VERSED] Allergy (Unknown, Verified 03/20/24 09:54) SNEEZING, GI upset penicillin V Allergy (Unknown, Verified 03/20/24 09:54) rash HPI HPI S/P Dr. Cornelio Goodman: Details: LAST VISIT: Screen for colon cancer Patient denies any GI, cardiac or respiratory symptoms.? Denies any history of sleep apnea.? No history infectious diseases in the past or present.? ? No family or personal history of colon cancer or polyps.? Patient denies melena, hematochezia, unintentional weight loss or ribbon like stools.? Discussed at length the pre-procedure,? prep, diet & medications as well as what to expect prior, during and after the procedure.?? Stressed the importance of good bowel prep. ?Patient has a history of obstructive hypertrophic cardiomyopathy. Recently was placed on mavacamten and reports that he has been feeling very well on it. Sees machinist outside in [place] as well as Cardiology at [facility]. History of AFib just recently cardioverted. Patient will be having appointment with his machinist outside in January. He will speak to her about if he can be cleared for the procedure. Patient will call our office. Recommendation on when to stop Xarelto will be given to patient as well. Usually 48 hours hold prior to procedure with restarting Xarelto depending on how many biopsies. Patient denies any cardiac or respiratory symptoms. Recommended the use of Vaseline or Calmoseptine OTC & baby wipes with bowel movements to promote comfort.? ?Patient verbalizes understanding and agrees to plan of care.? He was given the opportunity to ask questions and all questions answered.? We will see him after the procedure. Plan Medications New bisacodyl (Dulcolax (bisacodyl)) take 2 tabs at noon the day before your colonoscopy 10 mg (2 x 5 mg) PO ONCE 1 day 2 tabs 0RF Z12.11 - Encounter for screening for malignant neoplasm of colon polyethylene glycol 3350 (Miralax) As directed by gastroenterology department at [facility] 238 grams PO ONCE 238 grams 0RF Z12.11 - Encounter for screening for malignant neoplasm of colon COLONOSCOPY Findings: Terminal Ileum: Not evaluated Cecum: A 2-3 mm sessile polyp - removed with a cold biopsy. Prominent ileocecal valve - biopsies obtained to rule out polyp Ascending Colon: Normal Transverse Colon: Normal Descending Colon: Normal Sigmoid Colon: Moderate diverticulosis Rectum: A few 4-5 mm diminutive appearing polyps - 1 was biopsied Ano-rectum: Moderate internal hemorrhoids Colon preparation: Excellent, [place] Bowel Preparation Scale Right colon; 3 Transverse colon: 3 Left colon; 3 (0 = Unprepared colon segment with mucosa not seen due to solid stool that cannot be cleared. 1 = Portion of mucosa of the colon segment seen, but other areas of the colon segment not well seen due to staining, residual stool and/or opaque liquid. 2 = Minor amount of residual staining, small fragments of stool and/or opaque liquid, but mucosa of colon segment seen well. 3 = Entire mucosa of colon segment seen well with no residual staining, small fragments of stool or opaque liquid) Impression and Post Procedure Diagnosis: Colonoscopy Findings: Two small polyps were removed Prominent ileocecal valve - biopsies obtained to rule out polyp Moderate diverticulosis seen in the sigmoid colon Small hemorrhoids on retroflexed exam. Plan: Repeat Colonoscopy in 5 years if polyps are adenomatous and 10 year if polyps are hyperplastic. PATHOLOGY RESULTS Diagnosis A. Cecum, polypectomy: Colonic mucosa with prominent lymphoid aggregates. B. Ileocecal valve, biopsy: Terminal ileum mucosa with focal mature adipose tissue; otherwise within normal limits. C. Rectum, polypectomy: Hyperplastic mucosal polyp TODAY'S VISIT Patient is here today for follow-up and to discuss colonoscopy results. Patient denies any ill effects from the prep, anesthesia or procedure itself. Two benign polyps found. Colonoscopy in 10 years, sooner if clinically necessary. Patient denies melena, hematochezia. Patient reports that he moves his bowels does any issues. Denies any acid reflux, dyspepsia, dysphagia or odynophagia. Patient denies any family history of CRC [facility] Medical History Gilbert's syndrome Asymmetric septal hypertrophy Atrial dilatation, left Hypertrophic obstructive cardiomyopathy (HOCM) Paroxysmal A-fib Hypertrophic obstructive cardiomyopathy Surgical History (Updated 03/20/24 @ 09:58 by JACINDA Higuera) Hx of colonoscopy History of surgery Hx of hand surgery History of vasectomy Family History Father Lyme disease Mother No problems noted. Maternal Grandmother CHF (congestive heart failure) CVD (cardiovascular disease) Diabetes mellitus Maternal Grandfather History of quadruple bypass Paternal Grandfather No problems noted. Paternal Grandmother Alzheimer's disease Pacemaker Brother No problems noted. Son No problems noted. Daughter No problems noted. Social History Housing: House Alcohol intake: never Patient Tobacco Use Status: Never used Tobacco e-Cigarette/Vaping Use: Never Used Second Hand Smoke Exposure: No Current occupational status: employed Cognitive needs: No Hearing needs: No Vision needs: No Review of Systems Const Denies weight gain and Denies weight loss ENT Reports no additional complaints, Denies dysphagia and Denies odynophagia Card Reports no additional complaints Resp Reports no additional complaints GI Denies abdominal pain, Denies belching, Denies melena, Denies bloating, Denies change in bowel habits, Denies dysphagia, Denies excessive flatus, Denies dyspepsia, Denies heartburn, Denies diarrhea, Denies loose stools, Denies nausea, Denies odynophagia and Denies vomiting Reports no additional complaints Musc Reports no additional complaints Neuro Reports no additional complaints Psych Reports no additional complaints Endo Reports no additional complaints Physical Exam Vital Signs: Last Vital Signs Pulse 56 03/20/24 09:57 BP 138/76 03/20/24 09:57 Pulse Ox 98 03/20/24 09:57 Oxygen Delivery Method Room Air 03/20/24 09:57 BMI result Body Mass Index 30.9 Const General: healthy appearing, no acute distress and well developed Nutritional Appearance: obese Orientation/consciousness: patient oriented x3 Resp Effort & Inspection: normal respiratory effort, able to speak in complete sentences, no tracheal deviation and symmetric chest movement Auscultation: clear to auscultation bilaterally Cardio Rate: regular rate GI Inspection: Yes normal to inspection, No distended and Yes obesity Palpation (GI): Soft to palpation, not firm, nontender and No hepatosplenomegaly present Auscultation: normal bowel sounds General: Yes no CVA tenderness Back/Spine/Pelvis Back: no CVA tenderness Skin General skin exam: elasticity normal, turgor normal and dry skin Neuro General: patient oriented x3 Psych Appearance: grossly normal Mental Status: mental status grossly normal Assessment & Plan Assessment & Plan (1) Gilbert's syndrome: Code(s): E80.4 - Gilbert syndrome Category: Medical (2) Elevated bilirubin: Code(s): R17 - Unspecified jaundice Category: Medical (3) Status post colonoscopy: Code(s): Z98.890 - Other specified postprocedural states Plan Colonoscopy in 10 years, sooner if clinically necessary. No family history of CRC. Will recheck his labs today. Patient is NPO follow-up in the office on as needed basis. Patient will call if he will have any GI concerning symptoms. Patient is agreeable to this plan and verbalizes understanding of instructions. He was given the opportunity to ask questions and all questions answered. Thank you for allowing me to participate in his care Orders: Orders Liver Panel Today R74.01 - Elevation of levels of liver transaminase levels Bilirubin Direct Today R17 - Unspecified jaundice Bilirubin Total Today R10.9 - Unspecified abdominal pain Coding Level of Care Code Est Pt Level 3 (43335) Diagnoses Gilbert's syndrome E80.4 Elevated bilirubin R17 Status post colonoscopy Z98.890 Time Spent (min) 25 Comment 15 minutes spent with patient and additional 10 minutes spent reviewing his records
[2024-03-20 09:57] VITALS: BP 138/76; PULSE 56; O2SAT 98; BMI 30.9
== END 2024-03-20 10:33 | disposition home or self-care (01) ==
PROVIDERS: PCP Nurse Practitioner Family; Visit Provider Nurse Practitioner Family
DX: E80.4 Gilbert syndrome (principal); R17 Unspecified jaundice; Z98.890 Other specified postprocedural states
CPT/HCPCS: 99213

== ENCOUNTER 2024-03-20 09:50 | Outpatient (REF) | payer BC, SELFPAY ==
[2024-03-20 11:20] LABS: Alanine Aminotransferase 23 U/L (0-40); Albumin Level 4.3 g/dL (3.5-5.0); Alkaline Phosphatase 47 U/L (39-117); Aspartate Amino Transferase 22 U/L (5-37); Bilirubin Direct 0.3 mg/dL (0.0-0.5); Bilirubin Total 1.4 mg/dL (0.0-1.0); Total Protein 7.4 g/dL (6.5-8.0)
== END 2024-03-20 09:51 | disposition home or self-care (01) ==
LOC: HO.LAB 09:50
PROVIDERS: PCP Nurse Practitioner Family; Visit Provider Nurse Practitioner Family
DX: E80.4 Gilbert syndrome (principal); R74.01 Elevation of levels of liver transaminase levels; R17 Unspecified jaundice; Z98.890 Other specified postprocedural states
CPT/HCPCS: 36415; 80076

== ENCOUNTER 2024-04-27 08:19 | Outpatient (REF) | payer BC, SELFPAY ==
[2024-04-27 16:51] LABS: Urine Cytology See Pathology rpt
== END 2024-04-27 08:20 | disposition home or self-care (01) ==
LOC: HO.LNP 08:19
PROVIDERS: PCP Nurse Practitioner Family; Visit Provider Urology
DX: N39.0 Urinary tract infection, site not specified (principal)
CPT/HCPCS: 81003; 88112

== ENCOUNTER 2024-04-27 08:19 | Outpatient (AMB) | payer BC, SELFPAY ==
--- NOTE | 2024-04-27 08:31 | A.OFFVIS_ITS ---
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 He was evaluated initially 1 year ago due to gross hematuria. He is here for follow-up denies concerns with urination denies irritative voiding symptoms. Denies family history of prostate cancer. Urinalysis trace blood. Plan urine for cytology. Renal ultrasound. Discussed PSA screening next year prior to follow- up. Will continue to monitor. Follow-up in one year. Review of chart: 04/28/2023?Fletcher is a 43-year-old male who presents today to the office for a 1 month follow-up. Fletcher is followed today for a cystoscopy procedure. He was last seen by me on 03/17/2023 for microscopic hematuria. Urine for cytology was ordered, and Cystoscopy was discussed to be scheduled at that time. I reviewed the repeat urine cytology results from 03/18/2023 which came back negative for malignancy cells. I reviewed the urine cytology results from 02/12/2023 revealed a few atypical urothelial cells. Cystoscopy findings: Bladder was within normal limits; no suspicious bladder lesions; prostate was noted some bilobar enlargement, non obstructive. Patient states that he had started bicycle riding just before being advised by his primary care provider, and then he has noticed microscopic blood in the urine. Patient states that he had stopped bicycle riding, while he was waiting for this work-up to be completed. Discussed with the patient that the bicycle riding may cause blood in the urine, and may contributed to irritation in the prostate causing blood in the urine. All other evaluations include urine cytology, office Cystoscopy was within normal limits. Mild bleeding noted at the prostate area from the instrumentation. 03/17/23-- The patient is referred to me by his primary care physician. The patient had a renal ultrasound on 02/23/23. He denies any hematuria. He denies any nicotine usage. Past medical history significant for hypertrophic cardiomyopathy and heart murmur. He is on metoprolol and Camzyos.?He denies any urinary issues. Discussed reasons for blood in the urine may include but are not limited to kidney stones, cancer in the urinary tract, BPH, kidney stone disease or inflammatory conditions of the urinary tract.? I have discussed workup to include cystoscopy evaluation. Results reviewed-- Renal ultrasound 02/23/23 -- kidneys WNL. Estimated prostate volume 28.4 mL. Bladder unremarkable. Prevoid bladder volume 320 mL. Postvoid bladder volume 29.5 mL. Evaluation today-- UA ? leukocytes: negative. Blood: 10 Wander/uL.Bladder scan PVR 0 mL. FORMERLY [facility], [facility]1983 Medical History Gilbert's syndrome Asymmetric septal hypertrophy Atrial dilatation, left Hypertrophic obstructive cardiomyopathy (HOCM) Paroxysmal A-fib Hypertrophic obstructive cardiomyopathy Surgical History Hx of colonoscopy History of surgery Hx of hand surgery History of vasectomy Family History Father Lyme disease Mother No problems noted. Maternal Grandmother CHF (congestive heart failure) CVD (cardiovascular disease) Diabetes mellitus Maternal Grandfather History of quadruple bypass Paternal Grandfather No problems noted. Paternal Grandmother Alzheimer's disease Pacemaker Brother No problems noted. Son No problems noted. Daughter No problems noted. Social History Housing: House Alcohol intake: never Patient Tobacco Use Status: Never used Tobacco e-Cigarette/Vaping Use: Never Used Second Hand Smoke Exposure: No Current occupational status: employed Cognitive needs: No Hearing needs: No Vision needs: No Review of Systems Const All systems reviewed & are unremarkable except as noted in HPI and below Reports no additional complaints Eyes Reports no additional complaints ENT Reports no additional complaints Card Reports no additional complaints Resp Reports no additional complaints GI Reports no additional complaints Reports as per HPI Musc Reports no additional complaints Skin/Breast Reports system reviewed and no additional complaints, except as documented Neuro Reports no additional complaints Psych Reports no additional complaints Endo Reports no additional complaints Costa/Lymph Reports no additional complaints Aller/Immun Reports no additional complaints Results AMB Urinalysis, Automated UA Leukoctes 0 Conor/uL Last Edit by JACINDA Cuevas on 04/27/24 08:48 UA Nitrite Negative Last Edit by JACINDA Cuevas on 04/27/24 08:48 UA Urobilinogen 0.2 mg/dL Last Edit by JACINDA Cuevas on 04/27/24 08:4 8 UA Protein 0 mg/dL Last Edit by JACINDA Cuevas on 04/27/24 08:48 UA pH 5.5 Last Edit by Blanca Correa CCM on 04/27/24 08:48 UA Blood 10 Wander/uL Last Edit by JACINDA Cuevas on 04/27/24 08:48 UA Specific [place] 1.020 Last Edit by JACINDA Cuevas on 04/27/24 08: 48 UA Ketone Negative Last Edit by JACINDA Cuevas on 04/27/24 08:48 UA Bilirubin 0 mg/dL Last Edit by JACINDA Cuevas on 04/27/24 08:48 UA Glucose 0 mg/dL Last Edit by Blanca Correa [facility] on 04/27/24 08:48 Results Reviewed Results Reviewed: Laboratory Last Values Urine pH (Auto) 5.5 04/27/24 08:48 Specific [place] (Auto) 1.020 04/27/24 08:48 Urine Protein (Auto) 0 mg/dL 04/27/24 08:48 Glucose (UA)(Auto) 0 mg/dL 04/27/24 08:48 Urine Ketones (Auto) Negative 04/27/24 08:48 Urine Blood (Auto) 10 Wander/uL 04/27/24 08:48 Urine Nitrite (Auto) Negative 04/27/24 08:48 Urine Bilirubin (Auto) 0 mg/dL 04/27/24 08:48 Urine Urobilinogen (Auto) 0.2 mg/dL 04/27/24 08:48 Leukocyte Esterase (Auto) 0 Conor/uL 04/27/24 08:48 Diagnosis Urine:? Negative for high-grade urothelial carcinoma. COMMENT: Examination of a monolayer preparation slide shows benign urothelial cells, benign squamous cells, degenerated cellular debris, occasional inflammatory cells, and red blood cells. Clinical History Microscopic hematuria Material Received Urine Gross Description 15 cc cloudy yellow fluid Date of service: 02/12/2023: Urine cytology. Diagnosis Urine:??Few atypical urothelial cells. COMMENT:? Examination of a monolayer preparation slide shows scattered benign squamous cells and urothelial cells with few hyperchromatic irregular urothelial cells with increased nuclear:cytoplasmic ratios.? Occasional inflammatory cells and red blood cells are also present. Clinical History Microscopic hematuria Material Received Urine Gross Description 20 cc clear yellow fluid Assessment & Plan Assessment & Plan (1) Microscopic hematuria: Code(s): R31.29 - Other microscopic hematuria Category: Medical (2) Gilbert's syndrome: Code(s): E80.4 - Gilbert syndrome Category: Medical (3) Screening PSA (prostate specific antigen): Code(s): Z12.5 - Encounter for screening for malignant neoplasm of prostate Category: Medical Plan 44-year-old male with Gilbert's syndrome. He was evaluated initially 1 year ago due to gross hematuria. He is here for follow-up denies concerns with urination denies irritative voiding symptoms. Urinalysis trace blood. Plan urine for cytology. Renal ultrasound. Discussed PSA screening next year prior to follow- up. Will continue to monitor. Follow-up in one year. Orders: Orders AMB Urinalysis Automated Today Z13.9 - Encounter for screening, unspecified US renal BI Today E80.4 - Gilbert syndrome, R31.29 - Other microscopic hematuria PSA,Total (Free>4and<10) 11 Months Z12.5 - Encounter for screening for malignant neoplasm of prostate Patient Instructions: The patient had an opportunity to ask questions regarding treatment plan. The patient expressed understanding and agreement with the above treatment plan. The patient is aware they should contact our office by phone for worsening of their current condition or the appearance of new symptoms. Compliance is encouraged with any medications and followup testing that is ordered. It is a privilege to be allowed the opportunity to participate in the urologic care of your patient. If you have any questions or concerns regarding treatment for the above conditions please do not hesitate to contact me. The office telephone contact is [phone]. This note is constructed in part using voice recognition software. While every effort has been made to ensure accuracy manager style errors may have been included. Yours sincerely, Jesse Sood MD Coding Level of Care Code Est Pt Level 4 (07266) Diagnoses Microscopic hematuria R31.29 Gilbert's syndrome E80.4 Screening PSA (prostate specific antigen) Z12.5
== END 2024-04-27 09:07 | disposition home or self-care (01) ==
PROVIDERS: PCP Nurse Practitioner Family; Visit Provider Urology
DX: R31.29 Other microscopic hematuria (principal); E80.4 Gilbert syndrome; Z12.5 Encounter for screening for malignant neoplasm of prostate; Z13.9 Encounter for screening, unspecified
CPT/HCPCS: 99214

== ENCOUNTER 2024-07-18 08:01 | Outpatient (AMB) | payer BC, SELFPAY ==
--- NOTE | 2024-07-18 08:03 | MHC.PC.OV ---
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 Accompanied by: Self / Same As Patient Allergies midazolam [From VERSED] Allergy (Unknown, Verified 07/18/24 08:38) SNEEZING, GI upset penicillin V Allergy (Unknown, Verified 07/18/24 08:38) rash Medication List - Last Reconciled 07/18/24 by CANDELARIO Almanzar-JERI famotidine (Heartburn Relief (famotidine)) 20 mg PO DAILY PRN lorazepam 1 mg PO DAILY PRN 10 days mavacamten (Camzyos) 10 mg PO DAILY metoprolol tartrate 75 mg PO BID rivaroxaban 20 mg PO DAILY Tobacco use date assessed: 07/18/24 Dental Screening Dental Screen Date: 07/18/24 Did you have a dental visit in the last 12 months?: Yes Did you have a dental problem in the last 6 months where you did not have access to dental care?: No Was dental information given to patient?: Patient has dentist HPI HPI Comments History of Present Illness Details Pt is here for a PE. colonoscopy is up to date. Pt sees a power press tender and a urologist. [facility] Medical History Gilbert's syndrome Asymmetric septal hypertrophy Atrial dilatation, left Hypertrophic obstructive cardiomyopathy (HOCM) Paroxysmal A-fib Hypertrophic obstructive cardiomyopathy Surgical History Hx of colonoscopy History of surgery Hx of hand surgery History of vasectomy Family History Father Lyme disease Mother No problems noted. Maternal Grandmother CHF (congestive heart failure) CVD (cardiovascular disease) Diabetes mellitus Maternal Grandfather History of quadruple bypass Paternal Grandfather No problems noted. Paternal Grandmother Alzheimer's disease Pacemaker Brother No problems noted. Son No problems noted. Daughter No problems noted. Social History Housing: House Alcohol intake: never Patient Tobacco Use Status: Never used Tobacco e-Cigarette/Vaping Use: Never Used Second Hand Smoke Exposure: No Current occupational status: employed Cognitive needs: No Hearing needs: No Vision needs: No Questionnaire PHQ-9 Over the last 2 weeks, how often have you been bothered by any of the following problems? 1. Little interest or pleasure in doing things: not at all 2. Feeling down, depressed, or hopeless: not at all 3. Trouble falling or staying asleep, or sleeping too much: not at all 4. Feeling tired or having little energy: not at all 5. Poor appetite or overeating: not at all 6. Feeling bad about yourself - or that you are a failure or have let yourself or your family down: not at all 7. Trouble concentrating on things, such as reading the newspaper or watching television: not at all 8. Moving or speaking so slowly that other people could have noticed. Or the opposite - being so fidgety or restless that you have been moving around a lot more than usual: not at all 9. Thoughts that you would be better off or of hurting yourself in some way: not at all Total score: 0 Depression Screening Interpretation: Negative Depression Screening Done: Yes 83675 - PHQ-9 Billing: Yes Source: Developed by Drs. Anupam Morin, Maria Ines Dunlap, Ryan Durham and colleagues, with an educational doreen from [employer]. Thrive Questionnaire Date Thrive assessed: 07/18/24 I am a: Patient What is your living situation today?: I have a steady place to live Within the past 12 months, did the food you bought not last and you didn't have the money to get more?: Never true Within the past 12 months, did you worry whether your food would run out before you got money to buy more?: Never true Do you have trouble paying for medicines?: No Do you have trouble getting transportation to medical appointments?: No Do you have trouble paying your heating and electricity bill?: No Do you have trouble taking care of your child, family member or friend?: No Do you have trouble with day-to-day activities such as bathing, preparing meals, shopping, managing finances, etc.?: No Are you currently unemployed and looking for a job?: No Are you interested in more education?: No Please select the resources that you would like help with: None Currently or been in a relationship where the following occur: No concerns reported THRIVE Score: 0 AUDIT C Alcohol Use Questionnaire (AUDIT-C) 1. How often do you have a drink containing alcohol?: Never 3. How often do you have six or more drinks on one occasion?: Never Total Score: 0 Score Reviewed/Action Taken: Yes ZARIA-7 AMB Questionnaire ZARIA-7 Date ZARIA - 7 assessed: 07/18/24 Feeling nervous, anxious, or on edge: 0 = Not at all Not being able to stop or control worryin = Not at all Worrying too much about different things: 0 = Not at all Trouble relaxin = Not at all Being so restless that it is hard to sit still: 0 = Not at all Becoming easily annoyed or irritable: 0 = Not at all Feeling afraid as if something awful might happen: 0 = Not at all Total ZARIA-7 score (0-4 normal; 5-9 mild; 10-14 moderate; 15-21 severe): 0 Source: Developed by Drs. Anupam Morin, Maria Ines Dunlap, Ryan Durham and colleagues, with an educational doreen from [employer]. ZARIA-7 Assessment Billing ZARIA-7 Assessment Tool: ZARIA-7 Assessment 11067 Review of Systems Const Denies chills and Denies fever(s) Eyes Denies blurry vision ENT Denies vertigo, Denies dizziness and Denies sore throat Card Denies chest pain at rest, Denies chest pain with activity, Denies diaphoresis, Denies dyspnea and Denies dyspnea on exertion Resp Denies cough, Denies dyspnea, Denies dyspnea on exertion and Denies wheezing GI Denies abdominal pain, Denies melena, Denies hematochezia, Denies constipation, Denies diarrhea and Denies loose stools Denies hematuria Musc Denies numbness and Denies tingling Skin/Breast Denies lesions Neuro Denies vertigo, Denies dizziness, Denies numbness and Denies tingling Psych Denies anxiety, Denies depression, Denies homicidal ideation, Denies suicidal ideation and Denies other (substance abuse) Aller/Immun Denies wheezing Physical exam (Primary Care) Vital Signs: Last Vital Signs Pulse 60 07/18/24 08:04 BP 120/70 07/18/24 08:04 Pulse Ox 100 07/18/24 08:04 Oxygen Delivery Method Room Air 07/18/24 08:04 BMI result Body Mass Index 31.8 Tobacco/Smoking Status: Tobacco use Status Tobacco use date assessed 07/18/24 07/18/24 08:05 Patient Tobacco Use Status Never used Tobacco 07/18/24 08:05 e-Cigarette/Vaping Use Never Used 07/18/24 08:05 PHQ-9: PHQ-9 Score PHQ-9: Total score 0 07/18/24 08:13 Depression Screening Interpretation: Negative Thrive Assessment: Date of Thrive Assessment Date Thrive assessed 07/18/24 07/18/24 08:05 Currently or been in a relationship where the following occur: No concerns reported Const General: cooperative Nutritional Appearance: well nourished Orientation/consciousness: patient oriented x3 HENMT Head: Yes normal to inspection, Yes normocephalic and Yes atraumatic Ears: TM normal on the right and TM normal on the left Eyes General: appearance normal, both eyes and all related structures Alignment and Position: alignment normal and position normal Neck Neck: Yes normal visual inspection, Yes no lymphadenopathy and Yes supple Resp Effort & Inspection: normal respiratory effort Auscultation: clear to auscultation bilaterally Cardio Rate: regular rate Rhythm: regular rhythm Heart sounds: S1 normal heart sound present, S2 normal heart sound present and no murmurs GI Palpation (GI): Soft to palpation and nontender Auscultation: normal bowel sounds Male General Exam: Yes normal external exam Penis: normal penis Scrotum: scrotum normal, testes descended bilaterally and no inguinal hernias Testes: no testicular mass Skin Other: back with scattered singular dry, dark, crusty lesions (? SK). Rashes: no rashes Neuro General: patient oriented x3, moves all extremities, no focal motor deficits and deep tendon reflexes 2+ bilaterally Romberg Test: Negative Extrem Right lower extremity: no edema Left lower extremity: no edema Psych Affect: normal affect Attitude: cooperative Thought process: Normal thought process present Coding Level of Care Code Est Pt Prev Care 40-64y(14789) Diagnoses Physical exam Z00.00 Screening PSA (prostate specific antigen) Z12.5 Skin lesions L98.9 Additional Codes ZARIA-7 Assessment Billing - ZARIA-7 Assessment Tool: ZARIA-7 Assessment 75914 ([id number]) PHQ-9 - 07668 - PHQ-9 Billing: Yes ([id number]) Assessment & Plan Assessment & Plan (1) Physical exam: Code(s): Z00.00 - Encounter for general adult medical examination without abnormal findings Category: Medical Plan: lab ordered (2) Screening PSA (prostate specific antigen): Code(s): Z12.5 - Encounter for screening for malignant neoplasm of prostate Category: Medical Plan: PSA (3) Skin lesions: Code(s): L98.9 - Disorder of the skin and subcutaneous tissue, unspecified Category: Medical Plan: referred to derm Orders: Orders Complete Blood Count Auto Diff Today Z00.00 - Encounter for general adult medical examination without abnormal findings Comprehensive [place]. Panel Fast Today Z00.00 - Encounter for general adult medical examination without abnormal findings TSH reflex Free T4 Today Z00.00 - Encounter for general adult medical examination without abnormal findings Prostate Specific Antigen Scr Today Z12.5 - Encounter for screening for malignant neoplasm of prostate US renal BI 04/27/24 E80.4 - Gilbert syndrome, R31.29 - Other microscopic hematuria UA CC w/rflx Micro + Cult Today Z00.00 - Encounter for general adult medical examination without abnormal findings Lipid Panel Today Z00.00 - Encounter for general adult medical examination without abnormal findings Referrals Dermatology Referral L98.9 - Disorder of the skin and subcutaneous tissue, unspecified Medications: Refilled lorazepam 1 mg PO DAILY 10 days PRN 10 tabs 0RF anxiety
[2024-07-18 08:04] VITALS: BP 120/70; PULSE 60; O2SAT 100; BMI 31.8
== END 2024-07-18 08:37 | disposition home or self-care (01) ==
PROVIDERS: PCP Nurse Practitioner Family; Visit Provider Nurse Practitioner Family
DX: Z00.00 Encounter for general adult medical examination without abnormal findings (principal); Z12.5 Encounter for screening for malignant neoplasm of prostate; L98.9 Disorder of the skin and subcutaneous tissue, unspecified

== ENCOUNTER 2024-07-18 08:01 | Outpatient (REF) | payer BC, SELFPAY ==
[2024-07-18 10:07] LABS: MANUAL DIFF FLAG NO
[2024-07-18 10:19] LABS: Basophils Absolute Auto 0.1 X10*3/uL (0.0-0.2); Basophils Percent Auto 1.1 % (0-2); Eosinophils Absolute Auto 0.2 X10*3/uL (0.0-0.4); Eosinophils Percent Auto 2.4 % (0-4); Hematocrit 45.1 % (42.0-52.0); Hemoglobin 15.2 g/dl (14.0-18.0); Imm Gran Abs Auto 0.03 X10*3/uL (0.00-0.03); Imm Gran Pct Auto 0.5 % (0.0-0.4); Lymphocytes Absolute Auto 1.2 X10*3/uL (1.2-4.9); Lymphocytes Percent Auto 19.3 % (20-40); Mean Corpuscular HGB Conc 33.7 g/dl (31.0-36.0); Mean Corpuscular Hemoglobin 29.2 pg (27.0-33.0); Mean Corpuscular Volume 86.6 fL (80.0-98.0); Mean Platelet Volume 9.4 fL (9.4-12.4); Monocytes Absolute Auto 0.6 X10*3/uL (0.1-1.2); Monocytes Percent Auto 9.8 % (2-11); Neutrophils Absolute Auto 4.2 x10*3/uL (2.0-8.3); Neutrophils Percent Auto 66.9 % (45-73); Platelet Count 254 X10*3/uL (160-400); Red Blood Count 5.21 X10*6/uL (4.60-5.80); Red Cell Distribution Width 11.8 % (11.0-16.0); White Blood Count 6.2 X10*3/uL (4.8-10.8)
[2024-07-18 10:38] LABS: Appearance Urine Clear; Color Urine Yellow; Glucose Urine UA Negative (Negative); Leukocyte Esterase Urine Negative (Negative); Nitrite Urine Negative (Negative); PH 5.5 (5.0-9.0); Urine Blood Negative (Negative); Urine Ketones Negative (Negative); Urine Protein Negative (Neg-Trace)
[2024-07-18 10:39] LABS: Alanine Aminotransferase 31 U/L (0-40); Albumin Level 4.3 g/dL (3.5-5.0); Alkaline Phosphatase 45 U/L (39-117); Anion Gap 9 (12-20); Aspartate Amino Transferase 23 U/L (5-37); Bilirubin Total 1.3 mg/dL (0.0-1.0); Blood Urea Nitrogen 13 mg/dL (9-16); Calcium 9.7 mg/dL (8.4-10.2); Carbon Dioxide 31 mmol/L (22-29); Chloride 105 mmol/L (96-108); Cholesterol 201 mg/dL (<200); Estimated Glomerular Filt Rate > 60; Glucose Fasting 136 mg/dL (60-99); HDL Cholesterol 58 mg/dL (>40); LDL Cholesterol Calculated 126 mg/dL (<100); Potassium 5.6 mmol/L (3.3-5.1); Sodium 139 mmol/L (135-145); Total Protein 7.4 g/dL (6.5-8.0); Triglycerides 89 mg/dL (<150)
[2024-07-18 11:02] LABS: TSH reflex Free T4 2.79 uIU/mL (0.32-4.0)
[2024-07-18 11:53] LABS: Prostate Specific Antigen Scr 1.05 ng/mL (<0.05-4.0)
== END 2024-07-18 08:02 | disposition home or self-care (01) ==
LOC: HO.HMGCLDS 08:01
PROVIDERS: PCP Nurse Practitioner Family; Visit Provider Nurse Practitioner Family
DX: Z00.00 Encounter for general adult medical examination without abnormal findings (principal); Z12.5 Encounter for screening for malignant neoplasm of prostate
CPT/HCPCS: 36415; 80053; 80061; 81003; 84153; 84443; 85025; 96127

== ENCOUNTER 2024-07-22 10:18 | Outpatient (REF) | payer BC, SELFPAY ==
[2024-07-22 11:44] LABS: Alanine Aminotransferase 32 U/L (0-40); Albumin Level 4.1 g/dL (3.5-5.0); Alkaline Phosphatase 47 U/L (39-117); Anion Gap 10 (12-20); Aspartate Amino Transferase 23 U/L (5-37); Bilirubin Total 1.6 mg/dL (0.0-1.0); Blood Urea Nitrogen 15 mg/dL (9-16); Calcium 9.2 mg/dL (8.4-10.2); Carbon Dioxide 28 mmol/L (22-29); Chloride 103 mmol/L (96-108); Estimated Glomerular Filt Rate > 60; Glucose Fasting 112 mg/dL (60-99); Potassium 4.3 mmol/L (3.3-5.1); Sodium 137 mmol/L (135-145)
== END 2024-07-22 10:19 | disposition home or self-care (01) ==
LOC: HO.LAB 10:18
PROVIDERS: PCP Nurse Practitioner Family; Visit Provider Nurse Practitioner Family
DX: E87.5 Hyperkalemia (principal)
CPT/HCPCS: 36415; 80053

== ENCOUNTER 2024-08-11 10:13 | Outpatient (REF) | payer BC, SELFPAY | END 2024-08-11 10:14 | disposition home or self-care (01) | LOC: HO.US 10:13 | PROVIDERS: PCP Nurse Practitioner Family; Visit Provider Nurse Practitioner Family | DX: R82.89 Other abnormal findings on cytological and histological examination of urine (principal); R31.29 Other microscopic hematuria | CPT/HCPCS: 76770 ==

== ENCOUNTER 2025-04-12 07:50 | Outpatient (REF) | payer BC, SELFPAY ==
--- NOTE | ~2025-04-12 | US_ITS ---
CLINICAL HISTORY: R31.29 - Other microscopic hematuria --- Additional Notes or Special Instructions: please resubmit US of kidneys Comparison: US/SR - US RETROPERITONEUM - 08/11/24 10:35 EST Findings: Right kidney is normal in size, echogenicity and morphology, 10.8 cm in length. No calculus, mass or hydronephrosis. Left kidney is normal in size, echogenicity and morphology, 11.5 cm in length. No calculus, mass or hydronephrosis. Limited color Doppler demonstrates unremarkable bilateral blood flow. Impression: Normal renal ultrasound. This document has been electronically signed by: Jessika Genao MD on 04/12/2025 10:16:04
--- OUTSIDE RECORDS SUMMARY | 2025-04-12 07:52 | XMS_ITS | Encounter Summary ---
Author Organization [facility] Address [address] [place] [id number] Phone Care Team Providers Care Asbestos Hazard Abatement Worker Name Role Phone Markos Gómez NP Primary Care Provider + Cuate Ray MD Unavailable [phone] Encounter Details Date Type Department Care Team (Late Contact Info) Description 05/05/2024 Procedure Pass [facility] Cardiovascular And Interventional Radiology [address] [place] [address] Social History Tobacco Use Types Packs/Day Years Used Date Smoking Tobacco: Never Smokeless Tobacco: Never Alcohol Use Standard Drinks/Week Comments Never 0 (1 standard drink = 0.6 oz pur e alcohol) Education Answer Date Recorded Are you interested in more education? Not on berhane e 12/25/2022 Are you concerned about learning? Not on file 12/25/2022 No 12/25/2022 No 12/25/2022 Digital Access Answer Date Recorded No 01/26/2023 No 01/26/2023 Reliable internet access at home? Not on file 01/26/2023 Device with a working camera? Not on file Sex and Gender Information Value Date Recorded Sex Assigned at Not on file Legal Sex Male 2:22 PM EDT Gender Identity Not on file Sexual Orientation Not on file documented as of this encounter Plan of Treatment Upcoming Encounters Date Type Department Care Team (Late Contact Info) Description 03/12/2025 Procedure Pass [facility] Cardiac US [address] [place] [address] 09/07/2025 10:00 AM EST Office Visit [facility] Cardiovascular Medicine [address] [facility], [address] [place] [address] Carmina Hoffman CNP [address] [place] [address] [email or web address] 09/07/2025 11:30 AM EST Appointment [facility] Cardiac US [address] [place] [address] Gladys Lowe MD [address] [address] [email or web address] documented as of this encounter Visit Diagnoses Not on filedocumented in this encounter Care Teams Asbestos Hazard Abatement Worker Relationship Specialty Start Date End Date Markos Gómez NP [address] [facility] [place] [address] PCP - General Family Medicine 01/01/21 Cuate Ray MD [address] [place] [id number] [email or web address] Cardiology 01/02/21 documented as of this encounter Additional Source Comments The information contained in this document represents components of the legal health record. It is not the complete legal health record.[facility]
== END 2025-04-12 07:51 | disposition home or self-care (01) ==
LOC: HO.US 07:50
PROVIDERS: PCP Nurse Practitioner Family; Visit Provider Urology
DX: R31.29 Other microscopic hematuria (principal); E80.4 Gilbert syndrome
CPT/HCPCS: 76775

== ENCOUNTER → 2025-04-12 07:50 | Outpatient (BNV) | payer BC, SELFPAY | PROVIDERS: PCP Nurse Practitioner Family; Visit Provider Radiology Diagnostic Radiology | DX: R31.29 Other microscopic hematuria (principal) | CPT/HCPCS: 76775 ==

== ENCOUNTER 2025-04-26 08:02 | Outpatient (AMB) | payer BC, SELFPAY ==
--- NOTE | 2025-04-26 08:03 | A.OFFVIS_ITS ---
Intake Visit Reasons: 1y/US/PSA Intake Note: Patient is present for 1y/us/psa Urology Medication: none blood Thinner:none Heating Element Winder Required: No Accompanied by: Self / Same As Patient Allergies midazolam (From VERSED) Allergy (Unknown, Verified 04/26/25 08:05) SNEEZING, GI upset penicillin V Allergy (Unknown, Verified 04/26/25 08:05) rash Medication List - Last Reconciled 04/26/25 by Jesse Sood MD famotidine (Heartburn Relief (famotidine)) 20 mg PO DAILY PRN lorazepam 1 mg PO DAILY PRN 10 days mavacamten (Camzyos) 10 mg PO DAILY metoprolol tartrate 75 mg PO BID rivaroxaban 20 mg PO DAILY HPI Comments Details: 04/26/25--Fletcher is a 44-year-old male with Gilbert's syndrome. He was referred initially and evaluated in 2022 due to gross hematuria. Telehealth follow-up renal ultrasound and PSA screening. The patient denies any irritative voiding symptoms. Reviewed renal ultrasound results are within normal limits. PSA 07/18/24---1.05 ng/mL. We will continue to monitor ultrasound retroperitoneum in 1 year. 04/27/24--Fletcher is a 44-year-old male with Gilbert's syndrome. He was evaluated initially 1 year ago due to gross hematuria. He is here for follow-up denies concerns with urination denies irritative voiding symptoms. Denies family history of prostate cancer. Urinalysis trace blood. Plan urine for cytology. Renal ultrasound. Discussed PSA screening next year prior to follow- up. Will continue to monitor. Follow-up in one year. 04/28/2023?Fletcher is a 43-year-old male who presents today to the office for a 1 month follow-up. Fletcher is followed today for a cystoscopy procedure. He was last seen by me on 03/17/2023 for microscopic hematuria. Urine for cytology was ordered, and Cystoscopy was discussed to be scheduled at that time. I reviewed the repeat urine cytology results from 03/18/2023 which came back negative for malignancy cells. I reviewed the urine cytology results from 02/12/2023 revealed a few atypical urothelial cells. Cystoscopy findings: Bladder was within normal limits; no suspicious bladder lesions; prostate was noted some bilobar enlargement, non obstructive. Patient states that he had started bicycle riding just before being advised by his primary care provider, and then he has noticed microscopic blood in the urine. Patient states that he had stopped bicycle riding, while he was waiting for this work-up to be completed. Discussed with the patient that the bicycle riding may cause blood in the urine, and may contributed to irritation in the prostate causing blood in the urine. All other evaluations include urine cytology, office Cystoscopy was within normal limits. Mild bleeding noted at the prostate area from the instrumentation. 03/17/23--The patient is referred to me by his primary care physician. The patient had a renal ultrasound on 02/23/23. He denies any hematuria. He denies any nicotine usage. Past medical history significant for hypertrophic cardiomyopathy and heart murmur. He is on metoprolol and Camzyos.?He denies any urinary issues. Discussed reasons for blood in the urine may include but are not limited to kidney stones, cancer in the urinary tract, BPH, kidney stone disease or inflammatory conditions of the urinary tract.? I have discussed workup to include cystoscopy evaluation. Results reviewed-- Renal ultrasound 02/23/23 -- kidneys WNL. Estimated prostate volume 28.4 mL. Bladder unremarkable. Prevoid bladder volume 320 mL. Postvoid bladder volume 29.5 mL. Evaluation today-- UA ? leukocytes: negative. Blood: 10 Wander/uL.Bladder scan PVR 0 mL. [facility] Medical History Gilbert's syndrome Asymmetric septal hypertrophy Atrial dilatation, left Hypertrophic obstructive cardiomyopathy (HOCM) Paroxysmal A-fib Hypertrophic obstructive cardiomyopathy Surgical History Hx of colonoscopy History of surgery Hx of hand surgery History of vasectomy Family History Father Lyme disease Mother No problems noted. Maternal Grandmother CHF (congestive heart failure) CVD (cardiovascular disease) Diabetes mellitus Maternal Grandfather History of quadruple bypass Paternal Grandfather No problems noted. Paternal Grandmother Alzheimer's disease Pacemaker Brother No problems noted. Son No problems noted. Daughter No problems noted. Social History Housing: House Alcohol intake: never Patient Tobacco Use Status: Never used Tobacco e-Cigarette/Vaping Use: Never Used Second Hand Smoke Exposure: No Current occupational status: employed Cognitive needs: No Hearing needs: No Vision needs: No Review of Systems Const All systems reviewed & are unremarkable except as noted in HPI and below Reports no additional complaints Eyes Reports no additional complaints ENT Reports no additional complaints Card Reports no additional complaints Resp Reports no additional complaints GI Reports no additional complaints Reports as per HPI Musc Reports no additional complaints Skin/Breast Reports system reviewed and no additional complaints, except as documented Neuro Reports no additional complaints Psych Reports no additional complaints Endo Reports no additional complaints Costa/Lymph Reports no additional complaints Aller/Immun Reports no additional complaints Telehealth Telehealth Telehealth Platform: [facility] Location of provider rendering services: practice address Location of patient: address on file Patient Identification confirmed using: Name, : Yes Telehealth method: video Patient verbally consented to treatment: Yes Patient verbally consented to billing insurance company: Yes Patient informed of any privacy concerns related to visit: Yes Results Reviewed Results Reviewed: Date of Service: 04/12/25 US of kidneys Comparison: US/SR - US RETROPERITONEUM - 08/11/24 10:35 EST Findings: Right kidney is normal in size, echogenicity and morphology, 10.8 cm in length. No calculus, mass or hydronephrosis. Left kidney is normal in size, echogenicity and morphology, 11.5 cm in length. No calculus, mass or hydronephrosis. Limited color Doppler demonstrates unremarkable bilateral blood flow. Impression: Normal renal ultrasound. Diagnosis Urine:? Negative for high-grade urothelial carcinoma. COMMENT: Examination of a monolayer preparation slide shows benign urothelial cells, benign squamous cells, degenerated cellular debris, occasional inflammatory cells, and red blood cells. Clinical History Microscopic hematuria Material Received Urine Gross Description 15 cc cloudy yellow fluid Date of service: 02/12/2023: Urine cytology. Diagnosis Urine:??Few atypical urothelial cells. COMMENT:? Examination of a monolayer preparation slide shows scattered benign squamous cells and urothelial cells with few hyperchromatic irregular urothelial cells with increased nuclear:cytoplasmic ratios.? Occasional inflammatory cells and red blood cells are also present. Clinical History Microscopic hematuria Material Received Urine Gross Description 20 cc clear yellow fluid Assessment & Plan Assessment & Plan (1) Microscopic hematuria: Code(s): R31.29 - Other microscopic hematuria Category: Medical (2) Gilbert's syndrome: Code(s): E80.4 - Gilbert syndrome Category: Medical (3) Screening PSA (prostate specific antigen): Code(s): Z12.5 - Encounter for screening for malignant neoplasm of prostate Category: Medical Plan 44-year-old male with Gilbert's syndrome. PSA screening. Will continue to monitor. Follow-up in one year. Orders: Orders US retroperitoneal comp 11 Months E80.4 - Gilbert syndrome, R31.29 - Other microscopic hematuria Patient Instructions: The patient had an opportunity to ask questions regarding treatment plan. The patient expressed understanding and agreement with the above treatment plan. The patient is aware they should contact our office by phone for worsening of their current condition or the appearance of new symptoms. Compliance is encouraged with any medications and followup testing that is ordered. It is a privilege to be allowed the opportunity to participate in the urologic care of your patient. If you have any questions or concerns regarding treatment for the above conditions please do not hesitate to contact me. The office telephone contact is [phone]. This note is constructed in part using voice recognition software. While every effort has been made to ensure accuracy rehab department manager errors may have been included. Yours sincerely, Jesse Sood MD Coding Level of Care Code Tele Est Pt Level 3 (76792) Diagnoses Microscopic hematuria R31.29 Gilbert's syndrome E80.4 Screening PSA (prostate specific antigen) Z12.5
--- OUTSIDE RECORDS SUMMARY | 2025-04-26 08:17 | XMS_ITS | Encounter Summary ---
Author Organization [facility] Address [address] [place] [address] Phone Care Team Providers Care Audiovisual Production Specialist Name Role Phone Markos Gómez NP Primary Care Provider + Cuate Ray MD Unavailable [phone] Encounter Details Date Type Department Care Team (Late st Contact Info) Description 08/10/2022 Procedure Pass [facility] Cardiac US [address] [place] [address] Social History Tobacco Use Types Packs/Day Years Used Date Smoking Tobacco: Never Smokeless Tobacco: Never Alcohol Use Standard Drinks/Week Comments Never 0 (1 standard drink = 0.6 oz pur e alcohol) Sex and Gender Information Value Date Recorded Sex Assigned at Not on file Legal Sex Male 2:22 PM EDT Gender Identity Not on file Sexual Orientation Not on file documented as of this encounter Plan of Treatment Upcoming Encounters Date Type Department Care Team (Late Contact Info) Description 03/12/2025 Procedure Pass [facility] Cardiac US [address] [place] [address] 09/07/2025 10:00 AM EST Office Visit [facility] Cardiovascular Medicine [address] [facility], 5th Floor, [address] [place] [address] Carmina Hoffman, ERNESTINE [address] [place] [address] [email or web address] 09/07/2025 11:30 AM EST Appointment [facility] Cardiac US [address] [place] [address] Gladys Lowe MD [address] [place] [address] [email or web address] [email or web address] documented as of this encounter Visit Diagnoses Not on filedocumented in this encounter Care Teams Audiovisual Production Specialist Relationship Specialty Start Date End Date Markos Gómez NP [address] [place] [address] PCP - General Family Medicine 01/01/21 Cuate Ray MD [address] [place] [address] [email or web address] Cardiology 01/02/21 documented as of this encounter Additional Source Comments The information contained in this document represents components of the legal health record. It is not the complete legal health record.[facility]
--- OUTSIDE RECORDS SUMMARY | 2025-04-26 08:17 | XMS_ITS | Encounter Summary ---
Author Organization [facility] Address [address] [place] [address] Phone Care Team Providers Care Manager Of Broadcast Content Name Role Phone Markos Gómez NP Primary Care Provider + Cuate Ray MD Unavailable [phone] Encounter Details Date Type Department Care Team (Late st Contact Info) Description 11/17/2022 Procedure Pass [facility] Card[place] US [address] [place] [address] Social History Tobacco Use Types Packs/Day Years [...] (Late Contact Info) Description 03/12/2025 Procedure Pass [facility] Cardiac US [address] [place] [address] 09/07/2025 10:00 AM EST Office Visit [facility] Cardiovascular Medicine [address] [facility], 5th Floor, [address] [place] [address] Carmina Hoffman, ERNESTINE 55 [place] [address] [email or web address] 09/07/2025 11:30 AM EST Appointment [facility] Cardiac US [address] [place] [address] Gladys Lowe MD [address] [address] [facility] [address] [place] [address] [email or web address] documented as of this encounter Visit Diagnoses Not on filedocumented in this encounter Care Teams Manager Of Broadcast Content Relationship Specialty Start Date End Date Markos Gómez NP [address] [place] [address] PCP - General Family Medicine 01/01/21 Cuate Ray MD [address] [place] [address] [email or web address] Cardiology 01/02/21 documented as of this encounter Additional Source Comments The information contained in this document represents components of the legal health record. It is not the complete legal health record.[facility]
--- OUTSIDE RECORDS SUMMARY | 2025-04-26 08:17 | XMS_ITS | Encounter Summary ---
Author Organization [facility] Address [address] [place] [address] Phone Care Team Providers Care Elementary Ell Teacher Name Role Phone Markos Gómez NP Primary Care Provider + Cuate Ray MD Unavailable Encounter Details Date Type Department Care Team (Late Contact Info) Description 05/05/2024 Procedure Pass [facility] Cardiovascular And Interventional Radiology [address] [place] [address] Social History Tobacco Use Types Packs/Day Years [...] (Late Contact Info) Description 03/12/2025 Procedure Pass [facility] [place] [address] [place] [address] 09/07/2025 10:00 AM EST Office Visit [facility] [place] [address] [facility], 5th Floor, [address] [place] [address] Carmina Hoffman CNP 55 [place] [address] [email or web address] 09/07/2025 11:30 AM EST Appointment [facility] [place] US [address] [place] [address] Gladys Lowe MD [address] [address] [email or web address] documented as of this encounter Visit Diagnoses Not on filedocumented in this encounter Care Teams Elementary Ell Teacher Relationship Specialty Start Date End Date Markos Gómez NP [address] [place] [address] PCP - General Family Medicine 01/01/21 Cuate Ray MD [address] [place] [address] [email or web address] Cardiology 01/02/21 documented as of this encounter Additional Source Comments The information contained in this document represents components of the legal health record. It is not the complete legal health record.[facility]
--- OUTSIDE RECORDS SUMMARY | 2025-04-26 08:17 | XMS_ITS | Encounter Summary ---
Author Organization [facility] Address [address] [place] [address] Phone Care Team Providers Care Veterans' Counselor Name Role Phone Markos Gómez NP Primary Care Provider + Cuate Ray MD Unavailable [phone] Encounter Details Date Type Department Care Team (Late Contact Info) Description 05/05/2024 Procedure Pass [facility] Cardiovascular And Interventional Radiology [address] [place] [address] Social History Tobacco Use Types Packs/Day Years [...] (Late Contact Info) Description 03/12/2025 Procedure Pass [facility] Cardiac US [address] [place] [address] 09/07/2025 10:00 AM EST Office Visit [facility] Cardiovascular Medicine [address] [facility], 5th Floor, [address] [place] [address] Carmina Hoffman CNP 55 [place] [address] [email or web address] 09/07/2025 11:30 AM EST Appointment [facility] Cardiac US [address] [place] [address] Gladys Lowe MD [address] [address] [email or web address] documented as of this encounter Visit Diagnoses Not on filedocumented in this encounter Care Teams Veterans' Counselor Relationship Specialty Start Date End Date Markos Gómez NP [address] [facility] [place] [address] PCP - General Family Medicine 01/01/21 Cuate Ray MD [address] [place] [address] [email or web address] Cardiology 01/02/21 documented as of this encounter Additional Source Comments The information contained in this document represents components of the legal health record. It is not the complete legal health record.[facility]
--- OUTSIDE RECORDS SUMMARY | 2025-04-26 08:18 | XMS_ITS | Encounter Summary ---
Author Organization [facility] Address [address] [place] [address] Phone Care Team Providers Care Trend Investigator Name Role Phone Markos Gómez NP Primary Care Provider + Cuate Ray MD Unavailable [phone] Encounter Details Date Type Department Care Team (Late Contact Info) Description 12/15/2024 Procedure Pass [facility] Echo Lab 30 [place] [address] Social History Tobacco Use Types Packs/Day Years [...] Contact Info) Description 03/12/2025 Procedure Pass [facility] Cardiac US [address] [place] [address] 09/07/2025 10:00 AM EST Office Visit [facility] Cardiovascular Medicine [address] [facility], 5th Floor, [address] [place] [address] Carmina Hoffman CNP 55 [place] [address] [email or web address] 09/07/2025 11:30 AM EST Appointment [facility] Cardiac [address] [place] [address] Gladys Lowe MD [address] [address] [email or web address] documented as of this encounter Visit Diagnoses Not on filedocumented in this encounter Care Teams Trend Investigator Relationship Specialty Start Date End Date Markos Gómez NP [facility] [place] [address] PCP - General Family Medicine 01/01/21 Cuate Ray MD [address] [place] [address] [email or web address] Cardiology 01/02/21 documented as of this encounter Additional Source Comments The information contained in this document represents components of the legal health record. It is not the complete legal health record.[facility]
--- OUTSIDE RECORDS SUMMARY | 2025-04-26 08:18 | XMS_ITS | Encounter Summary ---
Author Organization [facility] Address [address] [place] [address] [place] [address] Phone Care Team Providers Care Ironer Or Presser Name Role Phone Markos Gómez NP Primary Care Provider + Cuate Ray MD Unavailable [phone] Encounter Details Date Type Department Care Team (Late Contact Info) Description 10/13/2023 Procedure Pass [facility] [place] US [address] [place] [address] Social History Tobacco Use Types Packs/Day Years [...] (Late Contact Info) Description 03/12/2025 Procedure Pass [facility] Card[facility] US [address] [place] [address] 09/07/2025 10:00 AM EST Office Visit [facility] Cardiovascular Medicine [address] [place] [address], 5th Floor, [address] [place] [address] Carmina Hoffman, ERNESTINE [address] [place] [address] [email or web address] 09/07/2025 11:30 AM EST Appointment [facility] Cardiac 55 [place] [address] Gladys Lowe MD [address] [facility] [address] [address] [email or web address] documented as of this encounter Visit Diagnoses Not on filedocumented in this encounter Care Teams Ironer Or Presser Relationship Specialty Start Date End Date Markos Gómez NP [address] [facility] [place] [address] PCP - General Family Medicine 01/01/21 Cuate Ray MD [address] [place] [address] [email or web address] Cardiology 01/02/21 documented as of this encounter Additional Source Comments The information contained in this document represents components of the legal health record. It is not the complete legal health record.[facility]
--- OUTSIDE RECORDS SUMMARY | 2025-04-26 08:18 | XMS_ITS | Encounter Summary ---
Author Organization [facility] Address [address] [place] [address] [place] [address] Phone Care Team Providers Care Floor Waxer Name Role Phone Markos Gómez NP Primary Care Provider + Cuate Ray MD Unavailable [phone] Encounter Details Date Type Department Care Team (Late Contact Info) Description 09/21/2024 Procedure Pass [facility] Cardiac US [address] [place] [address] Social History Tobacco Use Types Packs/Day Years [...] (Late Contact Info) Description 03/12/2025 Procedure Pass [facility] Cardiac US [address] [place] [address] 09/07/2025 10:00 AM EST Office Visit [facility] Cardiovascular Medicine [address] [place] [address], 5th Floor, [address] [place] [address] Carmina Hoffman, ERNESTINE [address] [place] [address] [email or web address] 09/07/2025 11:30 AM EST Appointment [facility] Cardiac [address] [place] [address] Gladys Lowe MD [address] [facility] [address] [address] [email or web address] documented as of this encounter Visit Diagnoses Not on filedocumented in this encounter Care Teams Floor Waxer Relationship Specialty Start Date End Date Markos Gómez NP [address] [facility] [place] [address] PCP - General Family Medicine 01/01/21 Cuate Ray MD [address] [place] [address] [email or web address] Cardiology 01/02/21 documented as of this encounter Additional Source Comments The information contained in this document represents components of the legal health record. It is not the complete legal health record.[facility]
--- OUTSIDE RECORDS SUMMARY | 2025-04-26 08:18 | XMS_ITS | Encounter Summary ---
Author Organization [facility] Address [address] [place] [address] [place] [address] Phone Care Team Providers Care Advertising Writer Name Role Phone Markos Gómez NP Primary Care Provider + Cuate Ray MD Unavailable [phone] Encounter Details Date Type Department Care Team (Late Contact Info) Description 01/07/2024 Procedure Pass [facility] US [address] [place] [address] Social History Tobacco Use Types Packs/Day Years [...] (Late Contact Info) Description 03/12/2025 Procedure Pass [facility] US 55 [place] [address] 09/07/2025 10:00 AM EST Office Visit [facility] Cardi[facility] Medicine [address] [place] [address], 5th Floor, [address] [place] [address] Carmina Hoffman, ERNESTINE 55 [place] [address] [email or web address] 09/07/2025 11:30 AM EST Appointment [facility] 55 [place] [address] Gladys Lowe MD [address] [facility] [address] [address] [email or web address] documented as of this encounter Visit Diagnoses Not on filedocumented in this encounter Care Teams Advertising Writer Relationship Specialty Start Date End Date Markos Gómez NP [address] [facility] [place] [address] PCP - General Family Medicine 01/01/21 Cuate Ray MD [address] [place] [address] [email or web address] Cardiology 01/02/21 documented as of this encounter Additional Source Comments The information contained in this document represents components of the legal health record. It is not the complete legal health record.[facility]
--- OUTSIDE RECORDS SUMMARY | 2025-04-26 08:18 | XMS_ITS | Encounter Summary ---
Author Organization [facility] Address [address] [place] [address] Phone Care Team Providers Care Literature Teacher Name Role Phone Markos Gómez NP Primary Care Provider + Cuate Ray MD Unavailable [phone] Encounter Details Date Type Department Care Team (Late st Contact Info) Description 01/06/2021 Procedure Pass [facility] [address] [place] [address] Social History Tobacco Use Types Packs/Day Years [...] (Late Contact Info) Description 03/12/2025 Procedure Pass [facility] Cardiac US 55 [place] [address] 09/07/2025 10:00 AM EST Office Visit [facility] Cardiovascular Medicine [address] [facility], 5th Floor, [address] [place] [address] Carmina Hoffman CNP 55 [place] [address] [email or web address] 09/07/2025 11:30 AM EST Appointment [facility] Cardiac US 55 [place] [address] Gladys Lowe MD 55 [facility] [address] [address] [email or web address] documented as of this encounter Visit Diagnoses Not on filedocumented in this encounter Care Teams Literature Teacher Relationship Specialty Start Date End Date Markos Gómez NP [address] [facility] [place] [address] PCP - General Family Medicine 01/01/21 Cuate Ray MD [address] [place] [address] [email or web address] Cardiology 01/02/21 documented as of this encounter Additional Source Comments The information contained in this document represents components of the legal health record. It is not the complete legal health record.[facility]
--- OUTSIDE RECORDS SUMMARY | 2025-04-26 08:18 | XMS_ITS | Encounter Summary ---
Author Organization [facility] Address [address] [place] [address] [address] [place] [address] Phone Care Team Providers Care Washer Assembler Name Role Phone Markos Gómez NP Primary Care Provider + Cuate Ray MD Unavailable [phone] Reason for Visit * Reason Comments Medication Refill Encounter Details Date Type Department Care Team (Late Contact Info) Description 01/13/2021 Refill [facility] [address] [facility] 3rd Floor, [address] [place] [address] Sharon López MD [address] [address] [email or web address] Medication Refill Social History Tobacco Use Types Packs/Day Years [...] Info) Description 03/12/2025 Procedure Pass [facility] [place] 55 [place] [address] 09/07/2025 10:00 AM EST Office Visit [facility] [address] [facility], 5th Floor, [address] [place] [address] Carmina Hoffman, ERNESTINE 55 [place] [address] [email or web address] 09/07/2025 11:30 AM EST Appointment [facility] 55 [place] [address] Gladys Lowe MD 55 [facility] [address] [address] [email or web address] documented as of this encounter Visit Diagnoses Not on filedocumented in this encounter Care Teams Washer Assembler Relationship Specialty Start Date End Date Markos Gómez NP [address] [facility] [place] [address] PCP - General Family Medicine 01/01/21 Cuate Ray MD [address] [place] [address] [email or web address] Cardiology 01/02/21 documented as of this encounter Additional Source Comments The information contained in this document represents components of the legal health record. It is not the complete legal health record.[facility]
--- OUTSIDE RECORDS SUMMARY | 2025-04-26 08:18 | XMS_ITS | Encounter Summary ---
Author Organization [facility] Address [address] [place] [address] Phone Care Team Providers Care Site Leasing Agent Name Role Phone Markos Gómez NP Primary Care Provider + Cuate Ray MD Unavailable [phone] Encounter Details Date Type Department Care Team (Late st Contact Info) Description 08/10/2022 Procedure Pass [facility] Cardiac US 55 [place] [address] Social History Tobacco Use Types Packs/Day Years [...] (Late Contact Info) Description 03/12/2025 Procedure Pass [facility] Cardiac US 55 [place] [address] 09/07/2025 10:00 AM EST Office Visit [facility] Cardiovascular Medicine [address] [facility], 5th Floor, [address] [place] [address] Carmina Hoffman, ERNESTINE 55 [place] [address] [email or web address] 09/07/2025 11:30 AM EST Appointment [facility] Cardiac US 55 [place] [address] Gladys Lowe MD [address] [facility] [address] [place] [address] [email or web address] documented as of this encounter Visit Diagnoses Not on filedocumented in this encounter Care Teams Site Leasing Agent Relationship Specialty Start Date End Date Markos Gómez NP [address] [facility] [place] [address] PCP - General Family Medicine 01/01/21 Cuate Ray MD [address] [place] [address] [email or web address] [email or web address] Cardiology 01/02/21 documented as of this encounter Additional Source Comments The information contained in this document represents components of the legal health record. It is not the complete legal health record.[facility]
--- OUTSIDE RECORDS SUMMARY | 2025-04-26 08:18 | XMS_ITS | Encounter Summary ---
Author Organization [facility] Address [address] [place] [address] Phone Care Team Providers Care Tuft Machine Operator Name Role Phone Markos Gómez NP Primary Care Provider + Cuate Ray MD Unavailable [phone] Encounter Details Date Type Department Care Team (Late Contact Info) Description 06/30/2024 Procedure Pass [facility] [place] [address] Social History Tobacco Use Types Packs/Day Years [...] (Late Contact Info) Description 03/12/2025 Procedure Pass [facility] Cardiac US 55 [place] [address] 09/07/2025 10:00 AM EST Office Visit [facility] Cardiovascular Medicine 32 [facility], 5th Floor, [address] [place] [address] Carmina Hoffman CNP 55 [place] [address] 09/07/2025 11:30 AM EST Appointment [facility] Cardiac 55 [place] [address] Gladys Lowe MD [address] [address] [email or web address] documented as of this encounter Visit Diagnoses Not on filedocumented in this encounter Care Teams Tuft Machine Operator Relationship Specialty Start Date End Date Markos Gómez NP [facility] [place] [address] PCP - General Family Medicine 01/01/21 Cuate Ray MD [address] [place] [address] Cardiology 01/02/21 documented as of this encounter Additional Source Comments The information contained in this document represents components of the legal health record. It is not the complete legal health record.[facility]
--- OUTSIDE RECORDS SUMMARY | 2025-04-26 08:19 | XMS_ITS | Encounter Summary ---
Author Organization [facility] Address [address] [place] [address] [place] [address] Phone Care Team Providers Care Floor Polisher Name Role Phone Markos Gómez NP Primary Care Provider + Cuate Ray MD Unavailable [phone] Encounter Details Date Type Department Care Team (Late st Contact Info) Description 01/20/2021 Procedure Pass [facility] Cardiovascular And Interventional Radiology [address] [place] [address] Social History Tobacco Use Types Packs/Day Years [...] (Late Contact Info) Description 03/12/2025 Procedure Pass [facility] US 55 [place] [address] 09/07/2025 10:00 AM EST Office Visit [facility] [address] [facility], 5th Floor, [address] [place] [address] Carmina Hoffman, ERNESTINE 55 [place] [address] [email or web address] 09/07/2025 11:30 AM EST Appointment [facility] US 55 [place] [address] Gladys Lowe MD [address] [facility] [address] [place] [address] [email or web address] documented as of this encounter Visit Diagnoses Not on filedocumented in this encounter Care Teams Floor Polisher Relationship Specialty Start Date End Date Markos Gómez NP [address] [facility] [place] [address] PCP - General Family Medicine 01/01/21 Cuate Ray MD [address] [place] [address] [email or web address] [email or web address] Cardiology 01/02/21 documented as of this encounter Additional Source Comments The information contained in this document represents components of the legal health record. It is not the complete legal health record.[facility]
--- OUTSIDE RECORDS SUMMARY | 2025-04-26 08:19 | XMS_ITS | Encounter Summary ---
Author Organization [facility] Address [address] [place] [address] [place] [address] Phone Care Team Providers Care Retanned Leather Roller Name Role Phone Markos Gómez NP Primary Care Provider + Cuate Ray MD Unavailable [phone] Encounter Details Date Type Department Care Team (Late Contact Info) Description 02/04/2023 Procedure Pass [facility] Cardiac US 55 [place] [address] Social History Tobacco Use Types Packs/Day Years [...] (Late Contact Info) Description 03/12/2025 Procedure Pass [facility] Cardiac US 55 [place] [address] 09/07/2025 10:00 AM EST Office Visit [facility] Cardiovascular Medicine [address] [place] [address], 5th Floor, [address] [place] [address] Carmina Hoffman, ERNESTINE 55 [place] [address] [email or web address] 09/07/2025 11:30 AM EST Appointment [facility] Cardiac 55 [place] [address] Gladys Lowe MD 55 [facility] [address] [address] JOSE@[email or web address] [email or web address] documented as of this encounter Visit Diagnoses Not on filedocumented in this encounter Care Teams Retanned Leather Roller Relationship Specialty Start Date End Date Markos Gómez NP [address] [facility] [place] [address] PCP - General Family Medicine 01/01/21 Cuate Ray MD [address] [place] [address] [email or web address] Cardiology 01/02/21 documented as of this encounter Additional Source Comments The information contained in this document represents components of the legal health record. It is not the complete legal health record.[facility]
--- OUTSIDE RECORDS SUMMARY | 2025-04-26 08:19 | XMS_ITS | Encounter Summary ---
Author Organization [facility] Address [address] [place] [address] [place] [address] Phone Care Team Providers Care Manager Wholesale Name Role Phone Markos Gómez NP Primary Care Provider + Cuate Ray MD Unavailable [phone] Encounter Details Date Type Department Care Team (Late Contact Info) Description 03/31/2024 Procedure Pass [facility] US [address] [place] [address] Social History Tobacco Use Types Packs/Day Years [...] Contact Info) Description 03/12/2025 Procedure Pass [facility] US [address] [place] [address] 09/07/2025 10:00 AM EST Office Visit [facility] [place] [address] [place] [address], 5th Floor, [address] [place] [address] Carmina Hoffman, ERNESTINE 55 [place] [address] [email or web address] 09/07/2025 11:30 AM EST Appointment [facility] 55 [place] [address] Gladys Lowe MD 55 [facility] [address] [address] [email or web address] documented as of this encounter Visit Diagnoses Not on filedocumented in this encounter Care Teams Manager Wholesale Relationship Specialty Start Date End Date Markos Gómez NP [address] [place] [address] PCP - General Family Medicine 01/01/21 Cuate Ray MD [address] [place] [address] [email or web address] Cardiology 01/02/21 documented as of this encounter Additional Source Comments The information contained in this document represents components of the legal health record. It is not the complete legal health record.[facility]
--- OUTSIDE RECORDS SUMMARY | 2025-04-26 08:19 | XMS_ITS | Encounter Summary ---
Author Organization [facility] Address [address] [place] [address] Phone Care Team Providers Care Braided Rug Maker Name Role Phone Markos Gómez NP Primary Care Provider + Cuate Ray MD Unavailable [phone] Encounter Details Date Type Department Care Team (Late st Contact Info) Description 07/18/2021 Procedure Pass [facility] Cardiac US [address] [place] [address] Social History Tobacco Use Types Packs/Day Years [...] (Late Contact Info) Description 03/12/2025 Procedure Pass [facility] Cardiac US [address] [place] [address] 09/07/2025 10:00 AM EST Office Visit [facility] Cardiovascular Medicine [address] [facility], 5th Floor, [address] [place] [address] Carmina Hoffman, ERNESTINE 55 [place] [address] [email or web address] 09/07/2025 11:30 AM EST Appointment [facility] Cardiac US [address] [place] [address] Gladys Lowe MD [address] [place] [address] [email or web address] documented as of this encounter Visit Diagnoses Not on filedocumented in this encounter Care Teams Braided Rug Maker Relationship Specialty Start Date End Date Markos Gómez NP [address] [facility] [place] [address] PCP - General Family Medicine 01/01/21 Cuate Ray MD [address] [place] [address] [email or web address] Cardiology 01/02/21 documented as of this encounter Additional Source Comments The information contained in this document represents components of the legal health record. It is not the complete legal health record.[facility]
--- OUTSIDE RECORDS SUMMARY | 2025-04-26 08:19 | XMS_ITS | Encounter Summary ---
Author Organization [facility] Address [address] [place] [address] [place] [address] Phone Care Team Providers Care Solar Photovoltaic Crew Lead Name Role Phone Markos Gómez NP Primary Care Provider + Cuate Ray MD Unavailable [phone] Encounter Details Date Type Department Care Team (Late st Contact Info) Description 07/29/2023 Procedure Pass [facility] Cardiac US [address] [place] [address] Social History Tobacco Use Types Packs/Day Years [...] (Late Contact Info) Description 03/12/2025 Procedure Pass [facility] Cardiac US 55 [place] [address] 09/07/2025 10:00 AM EST Office Visit [facility] Cardiovascular Medicine [address] [place] [address], 5th Floor, [address] [place] [address] Carmina Hoffman, ERNESTINE 55 [place] [address] [email or web address] 09/07/2025 11:30 AM EST Appointment [facility] Cardiac 55 [place] [address] Gladys Lowe MD 55 [facility] [address] [address] [email or web address] documented as of this encounter Visit Diagnoses Not on filedocumented in this encounter Care Teams Solar Photovoltaic Crew Lead Relationship Specialty Start Date End Date Markos Gómez NP [address] [facility] [place] [address] PCP - General Family Medicine 01/01/21 Cuate Ray MD [address] [place] [address] [email or web address] Cardiology 01/02/21 documented as of this encounter Additional Source Comments The information contained in this document represents components of the legal health record. It is not the complete legal health record.[facility]
--- OUTSIDE RECORDS SUMMARY | 2025-04-26 08:19 | XMS_ITS | Clinical Summary ---
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 . Active rivaroxaban (XARELTO) 20 mg Tab Take 20 mg by mouth daily. Active famotidine (PEPCID ORAL) Take 20 mg by mouth daily as needed. Active mavacamten 10 mg Cap Take 10 mg by mouth daily. 90 capsule 1 03/12/2025 Active Active Problems Problem Noted Date Diagnosed Date Cardiac risk counseling 09/21/2024 Paroxysmal atrial fibrillation 01/06/2021 Assessment & Plan (03/08/2025 2:17 PM EDT): PVI 2020-12 recurrent Afib after receiving 2nd COVID vaccine requiring DCCV with confucianist of sinus rhythm 2022-09 DCCV Increased risk for stroke with hypertrophic cardiomyopathy. Continue Xarelto. Assessment & Plan (06/30/2024 7:58 AM EDT): PVI 2020-12 recurrent Afib after receiving 2nd COVID vaccine requiring DCCV with confucianist of sinus rhythm 2022-09 DCCV Increased risk for stroke with hypertrophic cardiomyopathy. Continue Xarelto. Assessment & Plan (01/07/2024 3:04 PM EDT): PVI 2020-12 recurrent Afib after receiving 2nd COVID vaccine requiring DCCV with confucianist of sinus rhythm 2022-09 DCCV Increased risk for stroke with hypertrophic cardiomyopathy. Continue Xarelto. Assessment & Plan (10/14/2023 9:48 AM EST): PVI 2020-12 recurrent Afib after receiving 2nd COVID vaccine requiring DCCV with confucianist of sinus rhythm 2022-09 DCCV Today's EKG shows SR. Asymptomatic. Increased risk for stroke with hypertrophic cardiomyopathy. Continue Xarelto. OK to hold as recommended by GI for colonoscopy. Resume as soon as safe to do so from their perspective. Assessment & Plan (07/13/2023 7:52 AM EST): PVI 2020-12 recurrent Afib after receiving 2nd COVID vaccine requiring DCCV with confucianist of sinus rhythm 2022-09 DCCV Currently in sinus Increased risk for stroke with hypertrophic cardiomyopathy. Continue Xarelto Assessment & Plan (11/12/2022 9:20 AM EDT): Successful DCCV Asymptomatic Tolerating increased dose of metoprolol tartrate Metoprolol succinate did not work well to control symptoms in the past. Assessment & Plan (10/16/2022 8:07 AM EST): Successful DCCV Asymptomatic It is reasonable to increase metoprolol tartrate to metoprolol tartrate 75mg BID. Advised to monitor for fatigue (noted with higher doses in the past), HR and blood pressure. Metoprolol succinate did not work well to control symptoms in the past. Assessment & Plan (08/04/2022 10:29 PM EST): PVI 12/2020 recurrent Afib after receiving 2nd COVID vaccine requiring DCCV with confucianist of sinus rhythm Follows with Dr López Currently in sinus Increased risk for stroke with hypertrophic cardiomyopathy. Continue Xarelto Assessment & Plan (02/12/2022 8:57 AM EDT): He has not had any further episodes atrial fibrillation on disopyramide and he is anticoagulated as well with Xarelto. We will continue both these. His QTC is stable today Assessment & Plan (10/02/2021 8:37 AM EST): He notes that his atrial fibrillation is actually well managed now on Xarelto and metoprolol. We will continue both these as he has not had any recurrences. We will continue Xarelto, metoprolol, disopyramide Assessment & Plan (07/18/2021 5:44 PM EST): PVI [address] López Currently in sinus Increased risk for stroke with hypertrophic cardiomyopathy. Continue Xarelto Assessment & Plan (03/14/2021 8:46 AM EDT): He is maintaining normal sinus rhythm on disopyramide and metoprolol. He will continue on Xarelto. 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 He will continue reaching out to his pharmacy to see when he can be switched to the XL dosing for ease of taking Assessment & Plan (01/06/2021 4:36 PM EDT): We discussed that Multaq is a fairly weak antiarrhythmic drug and I am not surprised it did not convert him. I also noted that most antiarrhythmics are better at keeping normal rhythm rather than converting patients out of atrial arrhythmias. He will stop the Multaq and after 1 week of stopping Multaq, we will start disopyramide 100 twice daily. We will also decrease his metoprolol from 75 twice daily to 50 twice daily when he starts the disopyramide as I noted he is fairly bradycardic. He will get an EKG 1 week after starting this and we will plan on a cardioversion. He has been on uninterrupted Xarelto. I discussed with him that given this is his first recurrences since ablation, I would work to optimize his regimen with an antiarrhythmic and only consider ablation if it is a recurrent issue. Hypertrophic obstructive cardiomyopathy 01/07/20 Assessment & Plan (03/08/2025 2:17 PM EDT): CMR at [facility] 2017-10-11: Asymmetric increased LV wall thickness with BAS/BA 22, MIS 21, DE 20, MAS/AI 17, MIL 15, <5% LGE at RV insertion points. 2021-01-07 Echo (outside report) Afib, LVEF 60-65%, asym septal wall thickness 16-19, LVOT grad at rest 120, mild MR, RVSP 49 mmHg (excl RA pressure) 2021-01-22 DCCV 2021-04-18 Echo (outside report) LVEF 55-60%, asym septal wall thickness 16-19, CHINYERE, LVOT grad at rest 54, mild MR, inadequate TR jet for estimation of RVSP 2021-05-15 Exercise Stress Echo (outside report): Peterson, 10.1METs (average), 84% MPHR, rest peak velocity 5.6 m/s, stress peak velocity 7.4 m/s (?could this be MR contamination) 2022-08-04 Echo: LVEF 74%, IVS 19, PWT 15, LVOT grad 115 at rest, trace posteriorly directed MR Started [email or web address] 2022-09-23 Echo Week 4: LVEF 73%, IVS 19, PWT 15, LVOT grad 25 at rest, 50 with Valsalva trace MR-- cont 5mg 2022-10-21 Echo Week 8: LVEF 65%, IVS 17, PWT 13, LVOT grad 36 at rest, 56 with Valsalva trace-- cont 5mg 2022-11-17 Echo Week 12: LVEF of 76%. Peak LVOT at rest 35 mmHg, peak LVOT grad w/ Valsalva 62 mmHg. - Mavacamten dose increased to 10mg 2022-12-16 Echo Week 16: LVEF 56%. Peak rest LVOT 10, peak w/ Valsalva 14--cont 10mg 2023-01- Echo Week 24: LVEF 60%. CHINYERE without significant LVOT grad. Rest LVOT grad 11, peak w/ Valsalva 14. Trace/mild AR.-- cont 10mg 2023-04-27 TTE Week 36: LVEF 63%. Peak rest LVOT 8, peak w/ Valsalva 18-- cont 10mg 2023-07-27 TTE Week 48: LVEF 65%. Peak LVOT at rest 30, peak w/ valsalva 62 2023-10-13 TTE Week 60: LVEF 68%, LVOT peak at rest 18, w/ Valsalva 38 2024-01-07 TTE Week 72: LVEF 62%. LVOT peak at rest 9, w/ valsalva 12mmHg. Interval resolution of leaflet CHINYERE 2024 Echo Week 84: LVEF 70%, LVOT grad 14 at rest, 45 with valsalva 2024-06-26 Echo Week 96: LVEF 70%, LVOT grad 11 at rest, 13 with valsalva 2024-09-19 Echo Week 108: LVEF 45-50% at an outside hospital satellite location, echo report notes poor image quality with LVEF 45-50% , no LVOT gradients reported. Dr. Elias Craft reviewed echo images: visual estimate 55-60%. 2D single dimension EF 68%. Apical 2 chamber biplane 52%. Poor definition of endocardial border, can't re measure biplane and visually is normal. LVOT at rest 15, w/ valsalva no change. 2024-12-15 Echo Week 120: LVEF 60%. Peak LVOT at rest 8, no change with valsalva. 2025-03-12 Echo W132: pending Genetics: Discussed and deferred 2020 HCM SCD risk factors: Prior cardiac arrest or episode of sustained VT (Class I)? No SCD in 1st degree family member with definitive/likely HCM at age </=50 years (Class 2a)? No Syncope suspected to be arrhythmogenic (Class 2a)? No Extreme LVH (MWT>/=30mm) (Class 2a)? No Apical aneurysm (Class 2a)? No LVEF<50% (Class 2a)? No NsVT on Holter (Class 2b)? -- LGE >15% on CMR (Class 2b)? No Assessment & Plan (06/30/2024 7:58 AM EDT): CMR at [facility] 2017-10-11: Asymmetric increased LV wall thickness with BAS/BA 22, MIS 21, DE 20, MAS/AI 17, MIL 15, <5% LGE at RV insertion points. 2021-01-07 Echo (outside report) Afib, LVEF 60-65%, asym septal wall thickness 16-19, LVOT grad at rest 120, mild MR, RVSP 49 mmHg (excl RA pressure) 2021-01-22 DCCV 2021-04-18 Echo (outside report) LVEF 55-60%, asym septal wall thickness 16-19, CHINYERE, LVOT grad at rest 54, mild MR, inadequate TR jet for estimation of RVSP 2021-05-15 Exercise Stress Echo (outside report): Peterson, 10.1METs (average), 84% MPHR, rest peak velocity 5.6 m/s, stress peak velocity 7.4 m/s (?could this be MR contamination) 2022-08-04 Echo: LVEF 74%, IVS 19, PWT 15, LVOT grad 115 at rest, trace posteriorly directed MR Started [email or web address] 2022-09-23 Echo Week 4: LVEF 73%, IVS 19, PWT 15, LVOT grad 25 at rest, 50 with Valsalva trace MR-- cont 5mg 2022-09- Echo Week 8: LVEF 65%, IVS 17, PWT 13, LVOT grad 36 at rest, 56 with Valsalva trace-- cont 5mg 2022-10- Echo Week 12: LVEF of 76%. Peak LVOT at rest 35 mmHg, peak LVOT grad w/ Valsalva 62 mmHg. - Mavacamten dose increased to 10mg 2022-12-16 Echo Week 16: LVEF 56%. Peak rest LVOT 10, peak w/ Valsalva 14--cont 10mg 2023-01- Echo Week 24: LVEF 60%. CHINYERE without significant LVOT grad. Rest LVOT grad 11, peak w/ Valsalva 14. Trace/mild AR.-- cont 10mg 2023-03- TTE Week 36: LVEF 63%. Peak rest LVOT 8, peak w/ Valsalva 18-- cont 10mg 2023-07-27 TTE Week 48: LVEF 65%. Peak LVOT at rest 30, peak w/ valsalva 62 2023-10-13 TTE Week 60: LVEF 68%, LVOT peak at rest 18, w/ Valsalva 38 2024-01-07 TTE Week 72: LVEF 62%. LVOT peak at rest 9, w/ valsalva 12mmHg. Interval resolution of leaflet CHINYERE 2024 Echo Week 84: LVEF 70%, LVOT grad 14 at rest, 45 with valsalva 2024-06-26 Echo Week 96: LVEF 70%, LVOT grad 11 at rest, 13 with valsalva Genetics: Discussed and deferred 2020 HCM SCD risk factors: Prior cardiac arrest or episode of sustained VT (Class I)? No SCD in 1st degree family member with definitive/likely HCM at age </=50 years (Class 2a)? No Syncope suspected to be arrhythmogenic (Class 2a)? No Extreme LVH (MWT>/=30mm) (Class 2a)? No Apical aneurysm (Class 2a)? No LVEF<50% (Class 2a)? No NsVT on Holter (Class 2b)? -- LGE >15% on CMR (Class 2b)? No Assessment & Plan (01/07/2024 3:12 PM EDT): CMR at [facility] 2017-10-11: Asymmetric increased LV wall thickness with BAS/BA 22, MIS 21, DE 20, MAS/AI 17, MIL 15, <5% LGE at RV insertion points. 2021-01-07 Echo (outside report) Afib, LVEF 60-65%, asym septal wall thickness 16-19, LVOT grad at rest 120, mild MR, RVSP 49 mmHg (excl RA pressure) 2021-01-22 DCCV 2021-04-18 Echo (outside report) LVEF 55-60%, asym septal wall thickness 16-19, CHINYERE, LVOT grad at rest 54, mild MR, inadequate TR jet for estimation of RVSP 2021-05-15 Exercise Stress Echo (outside report): Peterson, 10.1METs (average), 84% MPHR, rest peak velocity 5.6 m/s, stress peak velocity 7.4 m/s (?could this be MR contamination) 2022-08-04 Echo: LVEF 74%, IVS 19, PWT 15, LVOT grad 115 at rest, trace posteriorly directed MR Started [email or web address] 2022-09-23 Echo Week 4: LVEF 73%, IVS 19, PWT 15, LVOT grad 25 at rest, 50 with Valsalva trace MR-- cont 5mg 2022-10-21 Echo Week 8: LVEF 65%, IVS 17, PWT 13, LVOT grad 36 at rest, 56 with Valsalva trace-- cont 5mg 2022-11-17 Echo Week 12: LVEF of 76%. Peak LVOT at rest 35 mmHg, peak LVOT grad w/ Valsalva 62 mmHg. - Mavacamten dose increased to 10mg 2022-12-16 Echo Week 16: LVEF 56%. Peak rest LVOT 10, peak w/ Valsalva 14--cont 10mg 2023-02-08 Echo Week 24: LVEF 60%. CHINYERE without significant LVOT grad. Rest LVOT grad 11, peak w/ Valsalva 14. Trace/mild AR.-- cont 10mg 2023-04-27 TTE: LVEF 63%. Peak rest LVOT 8, peak w/ Valsalva 18-- cont 10mg 2023-07-27 TTE: LVEF 65%. Peak LVOT at rest 30, peak w/ valsalva 62 2023-10-13 TTE: LVEF 68%, LVOT peak at rest 18, w/ Valsalva 38 2024-01-07 TTE: LVEF 62%. LVOT peak at rest 9, w/ valsalva 12mmHg. Interval resolution of leaflet CHINYERE Genetics: Discussed and deferred 2020 HCM SCD risk factors: Prior cardiac arrest or episode of sustained VT (Class I)? No SCD in 1st degree family member with definitive/likely HCM at age </=50 years (Class 2a)? No Syncope suspected to be arrhythmogenic (Class 2a)? No Extreme LVH (MWT>/=30mm) (Class 2a)? No Apical aneurysm (Class 2a)? No LVEF<50% (Class 2a)? No NsVT on Holter (Class 2b)? -- LGE >15% on CMR (Class 2b)? No Assessment & Plan (10/14/2023 9:42 AM EST): CMR at [facility] 2017-10-11: Asymmetric increased LV wall thickness with BAS/BA 22, MIS 21, DE 20, MAS/AI 17, MIL 15, <5% LGE at RV insertion points. 2021-5-11 Echo (outside report) Afib, LVEF 60-65%, asym septal wall thickness 16-19, LVOT grad at rest 120, mild MR, RVSP 49 mmHg (excl RA pressure) 2021-01-22 DCCV 2021-04-18 Echo (outside report) LVEF 55-60%, asym septal wall thickness 16-19, CHINYERE, LVOT grad at rest 54, mild MR, inadequate TR jet for estimation of RVSP 2021-05-15 Exercise Stress Echo (outside report): Peterson, 10.1METs (average), 84% MPHR, rest peak velocity 5.6 m/s, stress peak velocity 7.4 m/s (?could this be MR contamination) 2022-08-04 Echo: LVEF 74%, IVS 19, PWT 15, LVOT grad 115 at rest, trace posteriorly directed MR Started [email or web address] 2022-09-23 Echo Week 4: LVEF 73%, IVS 19, PWT 15, LVOT grad 25 at rest, 50 with Valsalva trace MR-- cont 5mg 2022-10-21 Echo Week 8: LVEF 65%, IVS 17, PWT 13, LVOT grad 36 at rest, 56 with Valsalva trace-- cont 5mg 2022-11-17 Echo Week 12: LVEF of 76%. Peak LVOT at rest 35 mmHg, peak LVOT grad w/ Valsalva 62 mmHg. - Mavacamten dose increased to 10mg 2022-12-16 Echo Week 16: LVEF 56%. Peak rest LVOT 10, peak w/ Valsalva 14--cont 10mg 2023-02-08 Echo Week 24: LVEF 60%. CHINYERE without significant LVOT grad. Rest LVOT grad 11, peak w/ Valsalva 14. Trace/mild AR.-- cont 10mg 2023-04-27 TTE: LVEF 63%. Peak rest LVOT 8, peak w/ Valsalva 18-- cont 10mg 2023-07-27 TTE: LVEF 65%. Peak LVOT at rest 30, peak w/ valsalva 62 2023-10-13 TTE: LVEF 68%, LVOT peak at rest 18, w/ Valsalva 38 Genetics: Discussed and deferred 2020 HCM SCD risk factors: Prior cardiac arrest or episode of sustained VT (Class I)? No SCD in 1st degree family member with definitive/likely HCM at age </=50 years (Class 2a)? No Syncope suspected to be arrhythmogenic (Class 2a)? No Extreme LVH (MWT>/=30mm) (Class 2a)? No Apical aneurysm (Class 2a)? No LVEF<50% (Class 2a)? No NsVT on Holter (Class 2b)? -- LGE >15% on CMR (Class 2b)? No Assessment & Plan (07/13/2023 7:52 AM EST): CMR at [facility] 2017-10-11: Asymmetric increased LV wall thickness with BAS/BA 22, MIS 21, DE 20, MAS/AI 17, MIL 15, <5% LGE at RV insertion points. 2021-01-07 Echo (outside report) Afib, LVEF 60-65%, asym septal wall thickness 16-19, LVOT grad at rest 120, mild MR, RVSP 49 mmHg (excl RA pressure) 2021-01-22 DCCV 2021-04-18 Echo (outside report) LVEF 55-60%, asym septal wall thickness 16-19, CHINYERE, LVOT grad at rest 54, mild MR, inadequate TR jet for estimation of RVSP 2021-05-15 Exercise Stress Echo (outside report): Peterson, 10.1METs (average), 84% MPHR, rest peak velocity 5.6 m/s, stress peak velocity 7.4 m/s (?could this be MR contamination) 2022-08-04 Echo: LVEF 74%, IVS 19, PWT 15, LVOT grad 115 at rest, trace posteriorly directed MR Started [email or web address] 2022-09-23 Echo Week 4: LVEF 73%, IVS 19, PWT 15, LVOT grad 25 at rest, 50 with Valsalva trace MR-- cont 5mg 2022-10-21 Echo Week 8: LVEF 65%, IVS 17, PWT 13, LVOT grad 36 at rest, 56 with Valsalva trace-- cont 5mg 2022-11-17 Echo Week 12: LVEF of 76%. Peak LVOT at rest 35 mmHg, peak LVOT grad w/ Valsalva 62 mmHg. - Mavacamten dose increased to 10mg 2022-12-16 Echo Week 16: LVEF 56%. Peak rest LVOT 10, peak w/ Valsalva 14--cont 10mg 2023-02-08 Echo Week 24: LVEF 60%. CHINYERE without significant LVOT grad. Rest LVOT grad 11, peak w/ Valsalva 14. Trace/mild AR.-- cont 10mg 2023-04-27 TTE: LVEF 63%. Peak rest LVOT 8, peak w/ Valsalva 18-- cont 10mg Genetics: Discussed and deferred 2020 HCM SCD risk factors: Prior cardiac arrest or episode of sustained VT (Class I)? No SCD in 1st degree family member with definitive/likely HCM at age </=50 years (Class 2a)? No Syncope suspected to be arrhythmogenic (Class 2a)? No Extreme LVH (MWT>/=30mm) (Class 2a)? No Apical aneurysm (Class 2a)? No LVEF<50% (Class 2a)? No NsVT on Holter (Class 2b)? -- LGE >15% on CMR (Class 2b)? No Assessment & Plan (04/21/2023 12:39 PM EDT): CMR at [facility] 2017-10-11: Asymmetric increased LV wall thickness with BAS/BA 22, MIS 21, DE 20, MAS/AI 17, MIL 15, <5% LGE at RV insertion points. 2021-01-07 Echo (outside report) Afib, LVEF 60-65%, asym septal wall thickness 16-19, LVOT grad at rest 120, mild MR, RVSP 49 mmHg (excl RA pressure) 2021-01-22 DCCV 2021-04-18 Echo (outside report) LVEF 55-60%, asym septal wall thickness 16-19, CHINYERE, LVOT grad at rest 54, mild MR, inadequate TR jet for estimation of RVSP 2021-05-15 Exercise Stress Echo (outside report): Peterson, 10.1METs (average), 84% MPHR, rest peak velocity 5.6 m/s, stress peak velocity 7.4 m/s (?could this be MR contamination) 2022-08-04 Echo: LVEF 74%, IVS 19, PWT 15, LVOT grad 115 at rest, trace posteriorly directed MR 2022-09-23 Echo: LVEF 73%, IVS 19, PWT 15, LVOT grad 25 at rest, 50 with Valsalva trace MR 2022-10-21 Echo: LVEF 65%, IVS 17, PWT 13, LVOT grad 36 at rest, 56 with Valsalva trace 2022-11-17 Echo: LVEF of 76%. Peak LVOT at rest 35 mmHg, peak LVOT grad w/ Valsalva 62 mmHg. - Mavacamten dose increased to 10mg 2022-12-16 TTE: LVEF 56%. Peak rest LVOT 10, peak w/ Valsalva 14 2023-02-08 TTE: LVEF 60%. CHINYERE without significant LVOT grad. Rest LVOT grad 11, peak w/ Valsalva 14. Trace/mild AR. Genetics: Discussed and deferred 2020 HCM SCD risk factors: Prior cardiac arrest or episode of sustained VT (Class I)? No SCD in 1st degree family member with definitive/likely HCM at age </=50 years (Class 2a)? No Syncope suspected to be arrhythmogenic (Class 2a)? No Extreme LVH (MWT>/=30mm) (Class 2a)? No Apical aneurysm (Class 2a)? No LVEF<50% (Class 2a)? No NsVT on Holter (Class 2b)? -- LGE >15% on CMR (Class 2b)? No Assessment & Plan (02/03/2023 9:28 AM EDT): CMR at [facility] 2017-10-11: Asymmetric increased LV wall thickness with BAS/BA 22, MIS 21, DE 20, MAS/AI 17, MIL 15, <5% LGE at RV insertion points. 2021-01-07 Echo (outside report) Afib, LVEF 60-65%, asym septal wall thickness 16-19, LVOT grad at rest 120, mild MR, RVSP 49 mmHg (excl RA pressure) 2021-01-22 DCCV 2021-04-18 Echo (outside report) LVEF 55-60%, asym septal wall thickness 16-19, CHINYERE, LVOT grad at rest 54, mild MR, inadequate TR jet for estimation of RVSP 2021-05-15 Exercise Stress Echo (outside report): Peterson, 10.1METs (average), 84% MPHR, rest peak velocity 5.6 m/s, stress peak velocity 7.4 m/s (?could this be MR contamination) 2022-08-04 Echo: LVEF 74%, IVS 19, PWT 15, LVOT grad 115 at rest, trace posteriorly directed MR 2022-09-23 Echo: LVEF 73%, IVS 19, PWT 15, LVOT grad 25 at rest, 50 with Valsalva trace MR 2022-10-21 Echo: LVEF 65%, IVS 17, PWT 13, LVOT grad 36 at rest, 56 with Valsalva trace 2022-11-17 Echo: LVEF of 76%. Peak LVOT at rest 35 mmHg, peak LVOT grad w/ Valsalva 62 mmHg. - Mavacamten dose increased to 10mg 2022-12-16 TTE: LVEF 56%. Peak rest LVOT 10, peak w/ Valsalva 14 Genetics: Discussed and deferred 2020 HCM SCD risk factors: Prior cardiac arrest or episode of sustained VT (Class I)? No SCD in 1st degree family member with definitive/likely HCM at age </=50 years (Class 2a)? No Syncope suspected to be arrhythmogenic (Class 2a)? No Extreme LVH (MWT>/=30mm) (Class 2a)? No Apical aneurysm (Class 2a)? No LVEF<50% (Class 2a)? No NsVT on Holter (Class 2b)? -- LGE >15% on CMR (Class 2b)? No Assessment & Plan (12/10/2022 7:57 AM EDT): CMR at [facility] 2017-10-11: Asymmetric increased LV wall thickness with BAS/BA 22, MIS 21, DE 20, MAS/AI 17, MIL 15, <5% LGE at RV insertion points. 2021-01-07 Echo (outside report) Afib, LVEF 60-65%, asym septal wall thickness 16-19, LVOT grad at rest 120, mild MR, RVSP 49 mmHg (excl RA pressure) 2021-01-22 DCCV 2021-04-18 Echo (outside report) LVEF 55-60%, asym septal wall thickness 16-19, CHINYERE, LVOT grad at rest 54, mild MR, inadequate TR jet for estimation of RVSP 2021-05-15 Exercise Stress Echo (outside report): Peterson, 10.1METs (average), 84% MPHR, rest peak velocity 5.6 m/s, stress peak velocity 7.4 m/s (?could this be MR contamination) 2022-08-04 Echo: LVEF 74%, IVS 19, PWT 15, LVOT grad 115 at rest, trace posteriorly directed MR 2022-09-23 Echo: LVEF 73%, IVS 19, PWT 15, LVOT grad 25 at rest, 50 with Valsalva trace MR 2022-10-21 Echo: LVEF 65%, IVS 17, PWT 13, LVOT grad 36 at rest, 56 with Valsalva trace 2022-11-17 Echo: LVEF of 76%. Peak LVOT at rest 35 mmHg, peak LVOT grad w/ Valsalva 62 mmHg. - Mavacamten dose increased to 10mg Genetics: Discussed and deferred 2020 HCM SCD risk factors: Prior cardiac arrest or episode of sustained VT (Class I)? No SCD in 1st degree family member with definitive/likely HCM at age </=50 years (Class 2a)? No Syncope suspected to be arrhythmogenic (Class 2a)? No Extreme LVH (MWT>/=30mm) (Class 2a)? No Apical aneurysm (Class 2a)? No LVEF<50% (Class 2a)? No NsVT on Holter (Class 2b)? -- LGE >15% on CMR (Class 2b)? No Assessment & Plan (11/06/2022 4:31 PM EST): CMR at [facility] 2017-10-11: Asymmetric increased LV wall thickness with BAS/BA 22, MIS 21, DE 20, MAS/AI 17, MIL 15, <5% LGE at RV insertion points. 2021-01-07 Echo (outside report) Afib, LVEF 60-65%, asym septal wall thickness 16-19, LVOT grad at rest 120, mild MR, RVSP 49 mmHg (excl RA pressure) 2021-01-22 DCCV 2021-04-18 Echo (outside report) LVEF 55-60%, asym septal wall thickness 16-19, CHINYERE, LVOT grad at rest 54, mild MR, inadequate TR jet for estimation of RVSP 2021-05-15 Exercise Stress Echo (outside report): Peterson, 10.1METs (average), 84% MPHR, rest peak velocity 5.6 m/s, stress peak velocity 7.4 m/s (?could this be MR contamination) 2022-08-04 Echo: LVEF 74%, IVS 19, PWT 15, LVOT grad 115 at rest, trace posteriorly directed MR 2022-09-23 Echo: LVEF 73%, IVS 19, PWT 15, LVOT grad 25 at rest, 50 with Valsalva trace MR 2022-10-21 Echo: LVEF 65%, IVS 17, PWT 13, LVOT grad 36 at rest, 56 with Valsalva trace Genetics: Discussed and deferred 2020 HCM SCD risk factors: Prior cardiac arrest or episode of sustained VT (Class I)? No SCD in 1st degree family member with definitive/likely HCM at age </=50 years (Class 2a)? No Syncope suspected to be arrhythmogenic (Class 2a)? No Extreme LVH (MWT>/=30mm) (Class 2a)? No Apical aneurysm (Class 2a)? No LVEF<50% (Class 2a)? No NsVT on Holter (Class 2b)? -- LGE >15% on CMR (Class 2b)? No Assessment & Plan (10/14/2022 1:13 PM EST): CMR at [facility] 2017-10-11: Asymmetric increased LV wall thickness with BAS/BA 22, MIS 21, DE 20, MAS/AI 17, MIL 15, <5% LGE at RV insertion points. 2021-01-07 Echo (outside report) Afib, LVEF 60-65%, asym septal wall thickness 16-19, LVOT grad at rest 120, mild MR, RVSP 49 mmHg (excl RA pressure) 2021-01-22 DCCV 2021-04-18 Echo (outside report) LVEF 55-60%, asym septal wall thickness 16-19, CHINYERE, LVOT grad at rest 54, mild MR, inadequate TR jet for estimation of RVSP 2021-05-15 Exercise Stress Echo (outside report): Peterson, 10.1METs (average), 84% MPHR, rest peak velocity 5.6 m/s, stress peak velocity 7.4 m/s (?could this be MR contamination) 2022-08-04 Echo: LVEF 74%, IVS 19, PWT 15, LVOT grad 115 at rest, trace posteriorly directed MR 2022-09-23 Echo: LVEF 73%, IVS 19, PWT 15, LVOT grad 25 at rest, 50 with Valsalva trace MR Genetics: Discussed and deferred 2020 HCM SCD risk factors: Prior cardiac arrest or episode of sustained VT (Class I)? No SCD in 1st degree family member with definitive/likely HCM at age </=50 years (Class 2a)? No Syncope suspected to be arrhythmogenic (Class 2a)? No Extreme LVH (MWT>/=30mm) (Class 2a)? No Apical aneurysm (Class 2a)? No LVEF<50% (Class 2a)? No NsVT on Holter (Class 2b)? -- LGE >15% on CMR (Class 2b)? No Assessment & Plan (09/16/2022 9:09 AM EST): CMR at [facility] 2017-10-11: Asymmetric increased LV wall thickness with BAS/BA 22, MIS 21, DE 20, MAS/AI 17, MIL 15, <5% LGE at RV insertion points. 2021-01-07 Echo (outside report) Afib, LVEF 60-65%, asym septal wall thickness 16-19, LVOT grad at rest 120, mild MR, RVSP 49 mmHg (excl RA pressure) 2021-01-22 DCCV 2021-04-18 Echo (outside report) LVEF 55-60%, asym septal wall thickness 16-19, CHINYERE, LVOT grad at rest 54, mild MR, inadequate TR jet for estimation of RVSP 2021-05-15 Exercise Stress Echo (outside report): Peterson, 10.1METs (average), 84% MPHR, rest peak velocity 5.6 m/s, stress peak velocity 7.4 m/s (?could this be MR contamination) 2022-08-04 Echo: LVEF 74%, IVS 19, PWT 15, LVOT grad 115 at rest, trace posteriorly directed MR Genetics: Discussed and deferred 2020 HCM SCD risk factors: Prior cardiac arrest or episode of sustained VT (Class I)? No SCD in 1st degree family member with definitive/likely HCM at age </=50 years (Class 2a)? No Syncope suspected to be arrhythmogenic (Class 2a)? No Extreme LVH (MWT>/=30mm) (Class 2a)? No Apical aneurysm (Class 2a)? No LVEF<50% (Class 2a)? No NsVT on Holter (Class 2b)? -- LGE >15% on CMR (Class 2b)? No Assessment & Plan (08/04/2022 10:29 PM EST): CMR at [facility] 2017-10-11: Asymmetric increased LV wall thickness with BAS/BA 22, MIS 21, DE 20, MAS/AI 17, MIL 15, <5% LGE at RV insertion points. 2021-01-07 Echo (outside report) Afib, LVEF 60-65%, asym septal wall thickness 16-19, LVOT grad at rest 120, mild MR, RVSP 49 mmHg (excl RA pressure) 2021-01-22 DCCV 2021-04-18 Echo (outside report) LVEF 55-60%, asym septal wall thickness 16-19, CHINYERE, LVOT grad at rest 54, mild MR, inadequate TR jet for estimation of RVSP 2021-05-15 Exercise Stress Echo (outside report): Peterson, 10.1METs (average), 84% MPHR, rest peak velocity 5.6 m/s, stress peak velocity 7.4 m/s (?could this be MR contamination) 2022-08-04 Echo: LVEF 74%, IVS 19, PWT 15, LVOT grad 115 at rest, trace posteriorly directed MR Genetics: Discussed and deferred 2020 HCM SCD risk factors: Prior cardiac arrest or episode of sustained VT (Class I)? No SCD in 1st degree family member with definitive/likely HCM at age </=50 years (Class 2a)? No Syncope suspected to be arrhythmogenic (Class 2a)? No Extreme LVH (MWT>/=30mm) (Class 2a)? No Apical aneurysm (Class 2a)? No LVEF<50% (Class 2a)? No NsVT on Holter (Class 2b)? -- LGE >15% on CMR (Class 2b)? No Assessment & Plan (02/12/2022 8:56 AM EDT): He has obstructive cardiomyopathy with a gradient with Valsalva that is now 142 mmHg. He is seeing the HCM specialist at [facility] again in July. I discussed with him that I would like him to see and to try to document whether he has any limitations in activity from his HCM. If he does, I discussed him that there is a novel medication that [facility] would be able to provide him called melody that he would be a candidate for. This would require close follow-up including very regular echocardiograms. He will try to document whether he is dyspnea before he sees the [facility] specialist again in July. We discussed not doing vigorous exercise to the point where he cannot speak because of his HCM. He will continue metoprolol Assessment & Plan (10/02/2021 8:37 AM EST): I discussed with him that given his significant gradient at rest and with exercise that a septal myomectomy would be a good option. I noted we have other options as well including increasing his just disopyramide slightly and seeing if the gradient improves as well. He notes he just had Covid roughly 1 month ago and is still recovering from that I would prefer holding on any changes for now. We discussed that we can repeat an echocardiogram in 4 months and see what his gradient is at that point and see how his exercise tolerance is. If he feels he is still limited, I agree with the specialist he saw at [facility] to consider septal myomectomy Assessment & Plan (07/18/2021 5:43 PM EST): 2021-01-07 Echo (outside report) Afib, LVEF 60-65%, asym septal wall thickness 16-19, LVOT grad at rest 120, mild MR, RVSP 49 mmHg (excl RA pressure) 2021-01-22 DCCV 2021-04-18 Echo (outside report) LVEF 55-60%, asym septal wall thickness 16-19, CHINYERE, LVOT grad at rest 54, mild MR, inadequate TR jet for estimation of RVSP 2021-05-15 Exercise Stress Echo (outside report): Peterson, 10.1METs (average), 84% MPHR, rest peak velocity 5.6 m/s, stress peak velocity 7.4 m/s (?could this be MR contamination) Genetics: Discussed and deferred HCM SCD risk factors: Prior cardiac arrest or episode of sustained VT? No SCD in 1st degree family member with definitive/likely HCM at age </=50 years? No Syncope suspected to be arrhythmogenic? No Extreme LVH (MWT>/=30mm)? Not per review of outside echocardiogram reports. Will obtain imaging for confirmation. Apical aneurysm? Not prior review of outside echocardiogram reports. Will obtain imaging for confirmation LVEF<50%? Not per review of outside echocardiogram reports NsVT on Holter? -- LGE >15% on CMR? Will obtain report/images from prior cardiac MRI conducted at [facility] in 2017 or 2018 for review. Assessment & Plan (03/14/2021 8:50 AM EDT): He has not had any syncope, NSVT on his ILR, or family history of sudden cardiac . He does not meet indication for ICD and based on the HCM calculator would also not meet indications for an ICD. I discussed with him that given the gradient of over 100 mmHg, I recommended that he follow-up with a hypertrophic cardiomyopathy specialist to evaluate for whether he will ever need a septal myomectomy. I also offered him the option of having his ILR removed and noted that that would require him to not shower for 5 days. He will think about the timeframe of the year that he would like this to get done. We will repeat the echocardiogram and perform a stress echocardiogram as well before his next visit Assessment & Plan (01/06/2021 4:37 PM EDT): He has known hypertrophic obstructive cardiomyopathy and had a gradient of 100 mmHg. He notes he has been able to be active and is only mild dyspnea with activity. We will repeat an echocardiogram to measure the gradient. If his gradient is significant, we will have to consider whether he should be referred back to a hypertrophic cardiomyopathy specialist Encounters Date Type Department Care Team Description 03/12/2025 8:12 AM EDT - 03/12/2025 11:59 PM EDT Hospital Encounter [facility] Lab [address] [place] [address] Gladys Lowe MD Discharge Disposition: Home or Self Care 03/12/2025 Orders Only [facility] Cardiology [address] [place] [address] Gladys Lowe MD Hypertrophic obstructive cardiomyopathy (Primary Dx) 03/08/2025 2:00 PM EDT Telemedicine - audio only [facility] Cardiovascular Medicine [address] [facility], 5th Floor, [address] [place] [address] Gladys Lowe MD Hypertrophic obstructive cardiomyopathy (Primary Dx); Paroxysmal atrial fibrillation 12/15/2024 Procedure Pass [facility] Echo Lab [address] [place] [address] from Last 3 Months Immunizations Immunization Administration Dates Next Due [id number] FORMULATION 06/20/2009 Influenza, Unspecified Formulation 05/20/2012 Social History Tobacco Use Types Packs/Day Years Used Date Smoking Tobacco: Never Smokeless Tobacco: Never Tobacco Cessation:Counseling Given: Not Answered Alcohol Use Standard Drinks/Week Comments Never 0 [...] on file Sexual Orientation Not on file Last Filed Vital Signs Vital Sign Reading Time Taken Comments Blood Pressure 130/88 12/15/2024 1:57 PM EDT Pulse 61 12/15/2024 1:57 PM EDT Temperature 36.2 C (97.2 F) 01/22/2021 9:40 AM EDT Respiratory Rate 16 12/15/2024 1:57 PM EDT Oxygen Saturation 99% 05/05/2024 8:11 AM EDT Inhaled Oxygen Concentration - - Weight 89.8 kg (198 lb) 12/15/2024 2:08 PM EDT Height 167.6 cm (5' 5.98 ) 12/15/2024 2:08 PM ED T Body Mass Index 31.97 12/15/2024 2:08 PM EDT Plan of Treatment Upcoming Encounters Date Type Department Care Team (Late st Contact Info) Description 03/12/2025 Procedure Pass [facility] Cardiac US [address] [place] [address] 09/07/2025 10:00 AM EST Office Visit [facility] Cardiovascular Medicine [address] [facility], 5th Floor, [address] [place] [address] Carmina Hoffman CNP [address] [place] [address] [email or web address] 09/07/2025 11:30 AM EST Appointment [facility] Cardiac US [address] [place] [address] Gladys Lowe MD [address] [facility] [address] [place] [address] [email or web address] Health Maintenance Due Date Last Done Comments DEPRESSION SCREENING 1990 HEPATITIS C SCREENING 1996 HIV ONE-TIME SCREENING (18-65 YEARS) 1996 COLOGUARD 2023 COLONOSCOPY 2023 COLORECTAL CANCER SCREENING 2023 FIT TEST 2023 FOBT 2023 SIGMOIDOSCOPY 2023 VIRTUAL COLONOSCOPY 2023 COVID-19 VACCINE ( season) 2024 CREATININE LEVEL 07/18/2025 07/18/2024, 03/2024, 02/13/2022, Additional history exists Adult Td,Tdap Booster 12/31/2025 01/01/2016 SCREENING FOR DIABETES 07/18/2027 07/18/2024, 2021 LIPID PANEL 07/18/2029 07/18/2024 SMOKING STATUS SCREENING (Once After 26 Yrs) Completed 10/13/2023 HEPATITIS A VACCINES Aged Out No long er eligible based on patient's age to complete this topic HIB VACCINES Aged Out No longer eligi ble based on patient's age to complete this topic MENINGOCOCCAL VACCINES (ACWY) Aged Out No longer eligible based on patient's age to complete this topic MENINGOCOCCAL VACCINES (B) Aged Out N o longer eligible based on patient's age to complete this topic PNEUMOCOCCAL VACCINES (0-49 years) Aged Out No longer eligible based on patient's age to complete this topic Medical Devices Implanted Type Area Microbiology Professor Device Identifier Shelf Expiration Date Model / Serial / Lot Implantable Monitor Implantable Monitor Chest Procedures Procedure Name Priority Date/Time Associated Diagnosis Comments TTE COMPREHENSIVE W/ LVO CONTRAST Routine 03/12/2025 9:09 AM EDT Hypertrophic obstructive cardiomyopathy OUTSIDE GLUCOSE FASTING Routine 07/18/2024 8:41 AM EST EXTERNALLY RESULTED CHEMISTRY Routine 07/18/2024 8:41 AM EST from Last 3 Months or Most Recently Relevant to Health Maintenance Results * TTE COMPREHENSIVE W/ LVO CONTRAST (03/12/2025 9:09 AM EDT) Body Surface Area 1.99 m2 Height 168 cm Weight 90 kg Systolic BP 130 mmHg Diastolic BP 88 mmHg Left Atrium Dimension Anterior-Posterior 46 15 - 40 mm Aortic Valve Regurgitation Pressure Half Time 582 ms Aortic Valve Peak Velocity 1.6 m/s Aortic Valve Peak Gradient 10 mmHg Aortic Valve Mean Gradient 5 mmHg Aortic Valve Time Velocity Integral 340.0 mm Aortic Arch Diameter 26 mm Aortic Sinus Diameter 29 <40 mm Ascending Aorta Diameter 32 <36 mm Inferior Vena Cava Diameter 17 <21 mm Interventricular Septum Thickness 17 6 - 11 mm Left Ventricle Internal Diameter End Diastole 40 42 - 58 mm Left Ventricle Internal Diameter End Systole 27 <40 mm Left Ventricular Outflow Tract Diameter 19.0 mm LVOT VTI REST 260.0 mm Left Ventricular Outflow Tract Velocity 1.3 m/s Left Ventricular Outflow Tract Gradient at Rest 7 mmHg Left Ventricular Posterior Wall Thickness 13 6 - 11 mm Left Ventricle Ea Lateral Wave Speed 11.5 cm/s Left Ventricle Ea Septal Wave Speed 5.7 cm/s Mitral Valve Deceleration Time 180 ms Ejection Fraction 62 50 - 75 Percent Left Ventricle A Wave Speed 66.8 cm/s Left Ventricle E Wave Speed 122.0 cm/s Right Ventricle Basal Diameter 36 25 - 41 mm Tricuspid Valve Peak Velocity 2.6 m/s Raw LV EF% 54 % MV E/E' Tissue Velocity Lateral 10.61 Relative Wall Thickness 0.65 0.22 - 0.42 Left Ventricle indexed to BSA 116.9 g/m2 MV E/A ratio 1.8 MV E/e' septal 21.40 Left Ventricle E/e' Average 16.0 Aortic Valve Prosthetic Peak Gradient 10 mmHg Aortic Valve Sinus Index by BSA 15 mm/m2 Aorta Sinus Index by Height 1.73 cm/m Aorta Sinus CSA index by Height 3.93 cm2/m Ascending Aorta Index 16 mm/m2 Asc Aorta CSA Index by Height 4.78 cm2/m Right Ventricle to Right Atrium Pressure Gradient 27 mmHg Right Ventricle Peak Systolic Pressure (Assuming RAP 10) 37 mmHg MGB CV ECHO TV RVSP (ASSUMING RAP OF 5) 32 mmHg RVSP (Exclusive of RAP) 27 mmHg MGB CV AV DIMENSIONLESS INDEX (PEAK) - STRESS ECHO DOBUT - REST 0.81 Ascending Aorta Index 16 mm Aortic Sinus Index 15 mm Ascending Aorta Diameter 16 mm Aortic Valve Sinus Index 1 15 20 - 32 mm AO ASC DIAM BSA INDEX 16.08 Echo E/Ea 21.40 Left Atrial Volume Index 59 16 - 34 mL/m2 Right Ventricle TAPSE 20 >=17 mm Right Ventricle Pulse Doppler S Wave 7.8 >=9.5 cm/s Right Ventricle Mid Diameter 21 19 - 35 mm Right Ventricle Longitudinal Diameter 63 59 - 83 mm Left Atrial Volume 118 mL Left Atrial Volume Index by Height 70 mL/m Right Ventricle Peak Systolic Pressure 30 mmHg Right Atrium Area 15 cm2 Right Atrium Area index 8 cm2/m2 Aortic Valve Prosthetic Mean Gradient 5 mmHg Right Atrium Pressure Estimated 3 mmHg Anatomical Region Laterality Modality Heart Ultrasound Narrative 03/12/2025 10:18 AM EDT Images from the original result were not included. 1. The indication is cardiomyopathy. Image quality is fair so contrast agent was used. The interventricular septal distance is 1.7 cm the posterior wall thickness is 1.3 cm. The left ventricular ejection fraction is completely normal there is no no significant left ventricular outflow tract gradient. It was measured without increase with Valsalva. 2. Normal RV size and function. 3. Trileaflet aortic valve there is no evidence of aortic stenosis there is at least mild and perhaps mild to moderate aortic regurgitation. The gradient across the aortic valve mean is 5 mmHg. The ascending aortic root is normal size. 4. Trace mitral and trace tricuspid sufficiency, the PA pressure is 30 mmHg. 5. Normal pericardium and compared to the prior echocardiogram done September 19, 2024, there is no significant change with the exception of the ejection fraction on the study is normal where it was 40 to 45%. Dr. Rodriguez read an echocardiogram on this patient and call the ejection fraction normal which I agree with that was done in November of this year Left Ventricle The left ventricle is normal in size. There is severe concentric hypertrophy. There is normal left ventricular systolic function. The LV ejection fraction is 62% (calculated via the single dimension method). The e' septal wave velocity is 5.7 cm/s. The e' lateral wave velocity is 11.5 cm/s. The average E/e' ratio is 16.0. Right Ventricle The right ventricle is normal in size. The RV basal dimension is 36 mm. The RV mid dimension is 21 mm. The RV longitudinal dimension is 63 mm. There is normal right ventricular systolic function. TAPSE is 20 mm. RV S' wave is 7.8 cm/s. Left Atrium The left atrium is dilated. The left atrial anterior-posterior dimension is 46 mm. The left atrial volume index by BSA is 59 mL/m2. There is blunting of systolic flow in the pulmonary vein consistent with elevated left atrial pressure. Right Atrium The right atrium is normal in size. The right atrial area is 15 cm2. The IVC is normal in size with normal inspiratory collapse. The IVC diameter is 17 mm. Mitral Valve The mitral valve appears normal. There is no mitral stenosis. There is trace mitral regurgitation. Tricuspid Valve The tricuspid valve appears normal. There is no tricuspid stenosis. There is trace tricuspid regurgitation. The RV systolic pressure was calculated at 30 mmHg (using TR peak velocity of 2.6 m/s and assuming an RA pressure of 3 mmHg). Normal pulmonary pressure. Aortic Valve The aortic valve is suboptimally visualized. There is no aortic stenosis. The peak and mean aortic valve gradients are 10 mmHg and 5 mmHg respectively. There is mild to moderate aortic regurgitation. The visualized portions of the thoracic aorta appear normal in size. Pulmonic Valve The pulmonic valve appears normal. There is no pulmonic stenosis. There is trace pulmonic regurgitation. Pericardium There is no pericardial effusion. General Findings The image quality was fair (3). Technique(s) used in the evaluation: Color flow Doppler and Spectral Doppler. An ultrasound enhancing agent was administered IV, per ASE guidelines. The predominant rhythm during the study was sinus. Comparison Findings Compared to prior TTE on 09/19/2024, IAS/IVS The interatrial septum appears normal. us Albree F Mynor YANEZ CV ECHO ORDERABLES Final Result * (ABNORMAL) EXTERNALLY RESULTED CHEMISTRY (07/18/2024 8:41 AM EST) Sodium - External 139 135 - 145 mmoI/L Potassium - External 5.6(A) 3.3 - 5.1 mmoI/L Chloride - External 105 96 - 108 mmoI/L CO2 - External 31(A) 22 - 29 mmoI/L BUN - External 13 9 - 16 mg/dL Creatinine, serum - External 1.01 0.5 - 1.4 mg/dL BUN/Creatinine - External eGFR - External Glucose - External Calcium - External 9.7 8.4 - 10.2 mg/dL Phosphorus - External Magnesium - External Albumin - External 4.3 3.5 - 5.0 g/dL Bilirubin, total - External 1.3(A) 0.0 - 1.0 mg/dL Bilirubin, direct - External Bilirubin (conjugated) - External Bilirubin, indirect - External Protein - External 7.4 6.5 - 8.0 g/dL Alkaline Phosphatase - External 45 39 - 117 U/L AST - External 23 5 - 37 U/L ALT - External 31 0 - 40 U/L Amylase - External Lipase (u/L) - External Cholesterol, total - External 201(A) <=200 mg/dL LDL - External 126(A) <=100 mg/dL Triglycerides - External 89 <=150 mg/dL HDL - External 58 >=40 mg/dL TIBC - External Iron - External Ferritin - External Folate - External Vitamin B12 - External CK - External Cotinine - External C-peptide (ng/mL) - External C-peptide (pmol/L) - External HCG, qualitative - External HCG, total - External NT-proBNP - External PTH - External TSH - External 2.79 0.32 - 4.0 T3 - External Total T4 - External Free T4 - External Vitamin D 25(OH) - External AFP (Tumor Marker) - External Uric Acid - External PSA - External 1.05 0.05 - 4.0 ng/mL Comment:Moise Alinity I Yuko miluminescent Microparticle Immunoassay (CMIA) Method GGT - External Lactate, dehydrogenase - External Ammonia - External Vitamin A - External Alk phos: Intestinal Isoenzymes - External Alk phos: Bone Isoenzymes - External Alk phos: Liver Isoenzymes - External Alk phos: Placental Isoenzymes - External Alk phos: Macrohepatic Isoenzymes - External Cystatin C - External 07/18/2024 8:41 AM EST [facility] Provider LAB BLOOD ORDERABLES Edit ed Result - Final * (ABNORMAL) Outside Glucose,Fasting (07/18/2024 8:41 AM EST) Glucose, fasting - External 136(A) 60 - 99 mg/dL Historical Provider LAB BLOOD ORDERABLES Lacie l Result from Last 3 Months or Most Recently Relevant to Health Maintenance [place] [address] [address] [place] [address] [facility] [place] [address] [place] [address] [facility] Contractor [employer] Contractor [employer] [facility] Contractor [employer] Care Teams Cross Cut Saw Operator Relationship Specialty Start Date End Date Markos Gómez NP [facility] [place] [address] PCP - General Family Medicine 01/01/21 Cuate Ray MD [address] [place] [id number] [email or web address] Cardiology 01/02/21 Additional Source Comments The information contained in this document represents components of the legal health record. It is not the complete legal health record.[facility]
--- OUTSIDE RECORDS SUMMARY | 2025-04-26 08:19 | XMS_ITS | Encounter Summary ---
Author Organization [facility] Address [address] [place] [address] [place] [phone] Phone Care Team Providers Care On Call Pharmacy Technician Name Role Phone Markos Gómez NP Primary Care Provider + Cuate Ray MD Unavailable [phone] Encounter Details Date Type Department Care Team (Late st Contact Info) Description 07/13/2023 Procedure Pass [facility] Cardiac US [address] [place] [address] Social History Tobacco Use Types Packs/Day Years [...] (Late Contact Info) Description 03/12/2025 Procedure Pass [facility] Cardiac US [address] [place] [address] 09/07/2025 10:00 AM EST Office Visit [facility] Cardiovascular Medicine [address] [place] [address], 5th Floor, [address] [place] [address] Carmina Hoffman, ERNESTINE [address] [place] [address] [email or web address] 09/07/2025 11:30 AM EST Appointment [facility] Cardiac [address] [place] [address] Gladys Lowe MD 55 [facility] [address] [address] [email or web address] documented as of this encounter Visit Diagnoses Not on filedocumented in this encounter Care Teams On Call Pharmacy Technician Relationship Specialty Start Date End Date Markos Gómez NP [address] [facility] [place] [address] PCP - General Family Medicine 01/01/21 Cuate Ray MD [address] [place] [id number] [email or web address] Cardiology 01/02/21 documented as of this encounter Additional Source Comments The information contained in this document represents components of the legal health record. It is not the complete legal health record.[facility]
--- OUTSIDE RECORDS SUMMARY | 2025-04-26 08:19 | XMS_ITS | Encounter Summary ---
Author Organization [facility] Address [address] [place] [phone] Phone Care Team Providers Care Project Intern Name Role Phone Markos Gómez NP Primary Care Provider + Cuate Ray MD Unavailable [phone] Encounter Details Date Type Department Care Team (Late st Contact Info) Description 08/10/2022 Procedure Pass [facility] Cardiac US [address] [place] [address] Social History Tobacco Use Types Packs/Day Years [...] (Late Contact Info) Description 03/12/2025 Procedure Pass [facility] Cardiac US [address] [place] [address] 09/07/2025 10:00 AM EST Office Visit [facility] Cardiovascular Medicine [address] [facility], 5th Floor, [address] [place] [address] Carmina Hoffman, ERNESTINE [address] [place] [address] [email or web address] 09/07/2025 11:30 AM EST Appointment [facility] Cardiac US [address] [place] [address] Gladys Lowe MD [address] [facility] [address] [place] [address] [email or web address] documented as of this encounter Visit Diagnoses Not on filedocumented in this encounter Care Teams Project Intern Relationship Specialty Start Date End Date Markos Gómez NP [address] [place] [address] PCP - General Family Medicine 01/01/21 Cuate Ray MD [address] [place] [phone] [email or web address] Cardiology 01/02/21 documented as of this encounter Additional Source Comments The information contained in this document represents components of the legal health record. It is not the complete legal health record.[facility]
--- OUTSIDE RECORDS SUMMARY | 2025-04-26 08:19 | XMS_ITS | Encounter Summary ---
Author Organization [facility] Address [address] [place] [address] Phone Care Team Providers Care Critical Care Transport Nurse Name Role Phone Markos Gómez NP Primary Care Provider + Cuate Ray MD Unavailable [phone] Encounter Details Date Type Department Care Team (Late st Contact Info) Description 08/10/2022 Procedure Pass [facility] [address] [place] [address] Social History Tobacco Use Types Packs/Day Years [...] (Late Contact Info) Description 03/12/2025 Procedure Pass [facility] [address] [place] [address] 09/07/2025 10:00 AM EST Office Visit [facility] [address] [facility], 5th Floor, [address] [place] [address] Carmina Hoffman, ERNESTINE [address] [place] [address] [email or web address] 09/07/2025 11:30 AM EST Appointment [facility] [place] [address] [place] [address] Gladys Lowe MD [address] [place] [address] [email or web address] documented as of this encounter Visit Diagnoses Not on filedocumented in this encounter Care Teams Critical Care Transport Nurse Relationship Specialty Start Date End Date Markos Gómez NP [address] [facility] [place] [address] PCP - General Family Medicine 01/01/21 Cuate Ray MD [address] [place] [address] [email or web address] Cardiology 01/02/21 documented as of this encounter Additional Source Comments The information contained in this document represents components of the legal health record. It is not the complete legal health record.[facility]
--- OUTSIDE RECORDS SUMMARY | 2025-04-26 08:19 | XMS_ITS | Encounter Summary ---
Author Organization [facility] Address [address] [place] [address] Phone Care Team Providers Care Qc Manager Name Role Phone Markos Gómez NP Primary Care Provider + Cuate Ray MD Unavailable [phone] Encounter Details Date Type Department Care Team (Late st Contact Info) Description 03/14/2021 Procedure Pass [facility] [address] [place] [address] Social History Tobacco Use Types Packs/Day Years [...] (Late Contact Info) Description 03/12/2025 Procedure [place] [facility] [place] [address] [place] [address] 09/07/2025 10:00 AM EST Office Visit [facility] [place] [address] [facility], 5th Floor, [address] [place] [address] Carmina Hoffman CNP [address] [place] [address] [email or web address] 09/07/2025 11:30 AM EST Appointment [facility] [place] [address] [place] [address] Gladys Lowe MD [address] [address] [email or web address] documented as of this encounter Visit Diagnoses Not on filedocumented in this encounter Care Teams Qc Manager Relationship Specialty Start Date End Date Markos Gómez NP [address] [facility] [place] [address] PCP - General Family Medicine 01/01/21 Cuate Ray MD [address] [place] [address] [email or web address] Cardiology 01/02/21 documented as of this encounter Additional Source Comments The information contained in this document represents components of the legal health record. It is not the complete legal health record.[facility]
--- OUTSIDE RECORDS SUMMARY | 2025-04-26 08:19 | XMS_ITS | Encounter Summary ---
Author Organization [facility] Address [address] [place] [address] [place] [address] Phone Care Team Providers Care Practice Consultant Name Role Phone Markos Gómez NP Primary Care Provider + Cuate Ray MD Unavailable [phone] Encounter Details Date Type Department Care Team (Late st Contact Info) Description 08/12/2021 Transcribe Orders [facility] [address] [facility], 5th Floor, [address] [place] [address] Gladys Lowe MD [address] [id number] [email or web address] Social History Tobacco Use Types Packs/Day Years [...] st Contact Info) Description 03/12/2025 Procedure Pass [facility] Cardiac US [address] [place] [address] 09/07/2025 10:00 AM EST Office Visit [facility] Cardiovascular Medicine [address] [facility], 5th Floor, [address] [place] [address] Carmina Hoffman, ERNESTINE [address] [place] [address] [email or web address] 09/07/2025 11:30 AM EST Appointment [facility] Cardiac [address] [place] [address] Gladys Lowe MD [address] [facility] [address] [place] [phone] [email or web address] documented as of this encounter Visit Diagnoses Not on filedocumented in this encounter Care Teams Practice Consultant Relationship Specialty Start Date End Date Markos Gómez NP [address] [facility] [place] [address] PCP - General Family Medicine 01/01/21 Cuate Ray MD [address] [place] [address] [email or web address] Cardiology 01/02/21 documented as of this encounter Additional Source Comments The information contained in this document represents components of the legal health record. It is not the complete legal health record.[facility]
== END 2025-04-26 09:09 | disposition home or self-care (01) ==
LOC: HO.HUSH 08:02
PROVIDERS: PCP Nurse Practitioner Family; Visit Provider Urology
DX: R31.29 Other microscopic hematuria (principal); E80.4 Gilbert syndrome; Z12.5 Encounter for screening for malignant neoplasm of prostate
CPT/HCPCS: 99213